=== PATIENT | male | born 1960 | race African-American/Black ===

== ENCOUNTER 2016-09-23 13:12 | Emergency (ER) | payer MEDICAID ==
[~2016-09-23] VITALS: Ht 177.8 cm; Wt 65.0 kg
[~2016-09-23 13:12] MED LIST: CEPH-569; KEPP500; [UNRECOGNIZED DRUG - OTHER]; clonazepam
[2016-09-23] MEDS ORDERED: ONDANSETRON HCL 4MG/2ML VIAL IV STA (14:05)
[2016-09-23] MEDS ORDERED: SODIUM CHLORIDE 0.9% 1,000 ML IV ONE (14:05)
[2016-09-23] MEDS ORDERED: MORPHINE SULFATE 4 MG/ML CPJ (NOT FOR IM USE) IV STA (14:05)
[2016-09-23] MEDS ORDERED: LEVETIRACETAM 500MG PREMIX 100 ML IV ONE (14:15)
[2016-09-23] MEDS ORDERED: CEFTRIAXONE 1 G PREMIX 50 ML IV ONE (14:15)
[2016-09-23] MEDS ORDERED: LIDOCAINE HCL 1%/EPI 1:200,000 30 ML VIAL MC ONE (14:15)
[2016-09-23] MEDS ORDERED: SULFAMETHOXAZOLE/TRIMETHOPRIM 800/160MG TABLET PO ONE (14:15)
[2016-09-23] MEDS ORDERED: LORAZEPAM 2MG/ML CPJ IV ONE (14:15)
[2016-09-23 14:30] VITALS: BP 100/81
[2016-09-23 14:47] LABS: BASOPHILS % 0.6 % (0.0-2.0); EOSINOPHILS % 1.9 % (0.0-5.0); HEMATOCRIT. 39.2 % (42.0-52.0); HEMOGLOBIN. 13.1 g/dL (14.0-18.0); LYMPHOCYTES % 29.5 % (20.0-50.0); MEAN CORPUSCULAR HEMOGLOBIN 30.6 pg (28.0-32.0); MEAN CORPUSCULAR HGB CONC 33.3 g/dL (31.0-37.0); MEAN PLATELET VOLUME 7.3 fl (7.4-10.4); MONOCYTES % 8.4 % (2.0-8.0); NEUTROPHILS % 59.6 % (40.0-76.0); PLATELET 256 x1000/uL (130-400); RED BLOOD CELL COUNT 4.27 mill/uL (4.7-6.1); WHITE BLOOD COUNT 13.4 x1000/uL (4.5-11.0)
[2016-09-23 14:53] LABS: CHLORIDE 101 mEq/L (98-107); INDEX HEMOLYSI 1 (1-3); INDEX ICTERIC 1 (1-4); INDEX LIPEMIC 1 (1-3); PARTIAL THROMBOPLASTIN TIME 33.9 sec (24.0-34.0); PROTHROMBIN TIME 10.6 sec
[2016-09-23 15:02] LABS: ALANINE AMINOTRANSFERASE 23 IU/L (13-61); ALBUMIN 3.2 g/dL (3.4-5.0); ANION GAP 15; CALCIUM 8.4 mg/dL (8.5-10.1); CARBON DIOXIDE 27 mEq/L (21-32); LIPASE 110 IU/L (73-393); UREA NITROGEN BLOOD 10 mg/dL (7-21); eGFR > 60 mL/min (>60)
== END 2016-09-24 12:11 | disposition left against medical advice (07) ==
LOC: ER 14:48
DX: L02.211 Cutaneous abscess of abdominal wall (principal); G40.909 Epilepsy, unspecified, not intractable, without status epilepticus; K62.5 Hemorrhage of anus and rectum; F17.210 Nicotine dependence, cigarettes, uncomplicated; Z88.8 Allergy status to other drugs, medicaments and biological substances; Z79.899 Other long term (current) drug therapy
CPT/HCPCS: 10060; 36415; 71010; 80053; 83690; 85025; 85610; 85730; 93005; 96365; 96375; 99285; J0696; J1953; J2060; J2270; J2405; J7030; X7700; Z7610

== ENCOUNTER 2016-10-01 11:23 | Emergency (ER) | payer MEDICAID ==
[~2016-10-01] VITALS: Ht 177.8 cm; Wt 75.0 kg
[2016-10-01 11:30] VITALS: BP 101/61
[2016-10-01] MEDS ORDERED: LIDOCAINE HCL 1% 20ML VIAL (Pyxis) INJ MC ONE (12:30)
[2016-10-01] MEDS ORDERED: BACITRACIN ZINC OINT UDPKT TOP ONE (12:30)
== END 2016-10-01 14:51 | disposition home or self-care (01) ==
LOC: ER 14:35
DX: Z48.00 Encounter for change or removal of nonsurgical wound dressing (principal)
CPT/HCPCS: 99283; J3490

== ENCOUNTER 2016-10-19 19:16 | Emergency (ER) | payer MEDICAID ==
[~2016-10-19] VITALS: Ht 177.8 cm; Wt 75.0 kg
[2016-10-19] MEDS ORDERED: SODIUM CHLORIDE 0.9% 1,000 ML IV ONE (19:51)
[2016-10-19 20:14] LABS: HEMATOCRIT. 37.7 % (42.0-52.0); HEMOGLOBIN. 12.8 g/dL (14.0-18.0); MEAN CORPUSCULAR HEMOGLOBIN 31.1 pg (28.0-32.0); MEAN CORPUSCULAR VOLUME 91.6 fL (80.0-94.0); MEAN PLATELET VOLUME 7.3 fl (7.4-10.4); PLATELET 220 x1000/uL (130-400); RED BLOOD CELL COUNT 4.12 mill/uL (4.7-6.1); WHITE BLOOD COUNT 10.9 x1000/uL (4.5-11.0)
[2016-10-19 20:16] LABS: DIFFERENTIAL COMMENT 1
[2016-10-19 20:18] LABS: CHLORIDE 104 mEq/L (98-107); INDEX HEMOLYSI 1 (1-3); INDEX ICTERIC 1 (1-4); INDEX LIPEMIC 1 (1-3)
[2016-10-19 20:22] LABS: ALBUMIN 3.4 g/dL (3.4-5.0); ANION GAP 13; CALCIUM 8.4 mg/dL (8.5-10.1); CARBON DIOXIDE 25 mEq/L (21-32); ETHANOL BLOOD 142 mg/dL; UREA NITROGEN BLOOD 5 mg/dL (7-21)
[2016-10-19 20:26] LABS: ALANINE AMINOTRANSFERASE 24 IU/L (13-61); eGFR > 60 mL/min (>60)
[2016-10-19 20:35] LABS: PLATELET ESTIMATE NORMAL
[2016-10-19 20:46] LABS: *AMPHETAMINES SCREEN URINE NEGATIVE (NEGATIVE); *BARBITURATES SCREEN URINE NEGATIVE (NEGATIVE); *BENZODIAZEPINES SCREEN URINE NEGATIVE (NEGATIVE); *COCAINE SCREEN URINE PRESUMTIVE POSITIVE (NEGATIVE); CANNABINOID URINE SCREEN NEGATIVE (NEGATIVE); ECSTASY MDMA SCREEN URINE NEGATIVE (NEGATIVE); METHADONE URINE SCREEN NEGATIVE (NEGATIVE); OPIATES URINE SCREEN PRESUMTIVE POSITIVE (NEGATIVE); PHENCYCLIDINE URINE SCREEN PRESUMTIVE POSITIVE (NEGATIVE)
[2016-10-19] MEDS ORDERED: LIDOCAINE HCL 1%/EPI 1:200,000 30 ML VIAL MC ONE (22:15)
[2016-10-19] MEDS ORDERED: BACITRACIN ZINC OINT UDPKT TOP ONE (22:15)
[2016-10-19 23:00] VITALS: BP 138/75
== END 2016-10-19 23:50 | disposition home or self-care (01) ==
LOC: ER 19:17
DX: F10.129 Alcohol abuse with intoxication, unspecified (principal); L02.31 Cutaneous abscess of buttock; F14.10 Cocaine abuse, uncomplicated; F19.10 Other psychoactive substance abuse, uncomplicated; R56.9 Unspecified convulsions; Z88.8 Allergy status to other drugs, medicaments and biological substances; Y90.8 Blood alcohol level of 240 mg/100 ml or more
CPT/HCPCS: 10060; 36415; 80053; 80305; 85025; 96360; 96361; 99285; G0482; J7030; X7700; Z7610

== ENCOUNTER 2016-10-26 23:48 | Emergency (ER) | payer MEDICAID | END 2016-10-27 01:21 | disposition left against medical advice (07) | LOC: ER 23:48 | DX: Z53.21 Procedure and treatment not carried out due to patient leaving prior to being seen by health care provider (principal) ==

== ENCOUNTER 2016-10-28 06:16 | Emergency (ER) | payer MEDICAID ==
[~2016-10-28] VITALS: Ht 162.6 cm; Wt 41.0 kg
[2016-10-28] MEDS ORDERED: LEVETIRACETAM 500MG TABLET PO ONE (07:45)
[2016-10-28 08:20] LABS: EOSINOPHILS % 1.9 % (0.0-5.0); HEMATOCRIT. 41.1 % (42.0-52.0); HEMOGLOBIN. 13.9 g/dL (14.0-18.0); LYMPHOCYTES % 36.4 % (20.0-50.0); MEAN CORPUSCULAR HEMOGLOBIN 31.2 pg (28.0-32.0); MEAN CORPUSCULAR VOLUME 92.3 fL (80.0-94.0); MEAN PLATELET VOLUME 7.2 fl (7.4-10.4); MONOCYTES % 7.3 % (2.0-8.0); NEUTROPHILS % 53.4 % (40.0-76.0); PLATELET 265 x1000/uL (130-400); RED BLOOD CELL COUNT 4.46 mill/uL (4.7-6.1); RED CELL DISTRIBUTION WIDTH 13.9 % (11.6-14.6)
[2016-10-28 08:21] LABS: PROTHROMBIN TIME 10.5 sec
[2016-10-28 08:25] VITALS: BP 134/74
[2016-10-28 08:25] LABS: CARBON DIOXIDE 29 mEq/L (21-32); CHLORIDE 109 mEq/L (98-107); ETHANOL BLOOD < 10 mg/dL
== END 2016-10-28 09:06 | disposition home or self-care (01) ==
LOC: ER 08:58
DX: L02.416 Cutaneous abscess of left lower limb (principal); F17.210 Nicotine dependence, cigarettes, uncomplicated; F11.10 Opioid abuse, uncomplicated; F19.10 Other psychoactive substance abuse, uncomplicated; Z48.01 Encounter for change or removal of surgical wound dressing; Z88.8 Allergy status to other drugs, medicaments and biological substances; Z79.899 Other long term (current) drug therapy
CPT/HCPCS: 36415; 80048; 85025; 85610; 99284; G0482; Z7610

== ENCOUNTER 2016-11-09 18:06 | Emergency (ER) | payer MEDICAID ==
[~2016-11-09] VITALS: Ht 167.6 cm; Wt 70.0 kg
[2016-11-09] MEDS ORDERED: KETOROLAC 60MG/2ML VIAL IM ONE (19:30)
[2016-11-09 19:59] VITALS: BP 106/67
== END 2016-11-09 20:03 | disposition home or self-care (01) ==
LOC: ER 18:10
DX: M79.632 Pain in left forearm (principal); F17.200 Nicotine dependence, unspecified, uncomplicated; Z88.8 Allergy status to other drugs, medicaments and biological substances; W20.8XXA Other cause of strike by thrown, projected or falling object, initial encounter; Y93.89 Activity, other specified; Y92.811 Bus as the place of occurrence of the external cause; Y99.8 Other external cause status
CPT/HCPCS: 73090; 96372; 99284; J1885

== ENCOUNTER 2016-11-18 20:01 | Emergency (ER) | payer MEDICAID ==
[~2016-11-18] VITALS: Ht 177.8 cm; Wt 63.6 kg
[2016-11-18 21:04] VITALS: BP 135/95
== END 2016-11-19 01:26 | disposition left against medical advice (07) ==
LOC: ER 11-19 01:23
DX: M54.9 Dorsalgia, unspecified (principal); M79.602 Pain in left arm; M79.643 Pain in unspecified hand; Z53.21 Procedure and treatment not carried out due to patient leaving prior to being seen by health care provider

== ENCOUNTER 2016-12-19 14:54 | Emergency (ER) | payer MEDICAID ==
[~2016-12-19] VITALS: Ht 177.8 cm; Wt 75.0 kg
[2016-12-19 16:25] LABS: BASOPHILS % 0.5 % (0.0-2.0); EOSINOPHILS % 0.9 % (0.0-5.0); LYMPHOCYTES % 38.5 % (20.0-50.0); MEAN CORPUSCULAR HEMOGLOBIN 31.7 pg (28.0-32.0); MEAN CORPUSCULAR VOLUME 92.7 fL (80.0-94.0); MEAN PLATELET VOLUME 7.2 fl (7.4-10.4); MONOCYTES % 4.7 % (2.0-8.0); NEUTROPHILS % 55.4 % (40.0-76.0); PLATELET 211 x1000/uL (130-400); RED BLOOD CELL COUNT 4.43 mill/uL (4.7-6.1); RED CELL DISTRIBUTION WIDTH 13.8 % (11.6-14.6)
[2016-12-19 16:32] LABS: CARBON DIOXIDE 24 mEq/L (21-32); CHLORIDE 111 mEq/L (98-107); ETHANOL BLOOD 184 mg/dL
[2016-12-19] MEDS ORDERED: CLONAZEPAM 1MG TABLET PO NR (18:30)
[2016-12-20 02:54] VITALS: BP 127/71
== END 2016-12-20 03:17 | disposition home or self-care (01) ==
LOC: ER 15:17
DX: F10.229 Alcohol dependence with intoxication, unspecified (principal); F12.10 Cannabis abuse, uncomplicated; Z88.8 Allergy status to other drugs, medicaments and biological substances; Y90.6 Blood alcohol level of 120-199 mg/100 ml
CPT/HCPCS: 36415; 70450; 80053; 85025; 99285; G0482; Z7610

== ENCOUNTER 2017-01-08 21:09 | Observation (INO) | payer MEDICAID ==
[~2017-01-08] VITALS: Ht 177.8 cm; Wt 59.0 kg
[~2017-01-08 21:09] MED LIST changes: -clonazepam; +clonazepam PO
[2017-01-08] MEDS ORDERED: SODIUM CHLORIDE 0.9% 1,000 ML IV ONE (23:55)
[2017-01-08] MEDS ORDERED: MORPHINE SULFATE 4 MG/ML CPJ (NOT FOR IM USE) IV STA (23:55)
[2017-01-08] MEDS ORDERED: ONDANSETRON HCL 4MG/2ML VIAL IV STA (23:55)
[2017-01-09 01:03] LABS: BASOPHILS % 0.5 % (0.0-2.0); EOSINOPHILS % 1.2 % (0.0-5.0); HEMATOCRIT. 37.9 % (42.0-52.0); HEMOGLOBIN. 12.8 g/dL (14.0-18.0); LYMPHOCYTES % 34.7 % (20.0-50.0); MEAN CORPUSCULAR HEMOGLOBIN 32.3 pg (28.0-32.0); MEAN CORPUSCULAR VOLUME 95.4 fL (80.0-94.0); MEAN PLATELET VOLUME 7.3 fl (7.4-10.4); MONOCYTES % 6.6 % (2.0-8.0); PLATELET 161 x1000/uL (130-400); RED BLOOD CELL COUNT 3.97 mill/uL (4.7-6.1); RED CELL DISTRIBUTION WIDTH 13.9 % (11.6-14.6)
[2017-01-09 01:10] LABS: PROTHROMBIN TIME 10.2 sec
[2017-01-09 01:20] LABS: CARBON DIOXIDE 29 mEq/L (21-32); CHLORIDE 103 mEq/L (98-107); ETHANOL BLOOD 17 mg/dL; TROPONIN I < 0.02 ng/mL (0.00-0.04)
[2017-01-09 01:27] LABS: CARBAMAZEPINE < 0.5 ug/mL (4-12); PHENOBARBITAL < 2.1 ug/mL (15.0-40.0); PHENYTOIN < 0.4 ug/mL (10-20); VALPROIC ACID < 3.0 ug/mL (50-100)
[2017-01-09] MEDS ORDERED: LEVETIRACETAM 500MG PREMIX 100 ML IV ONE (02:30)
[2017-01-09] MEDS ORDERED: LORAZEPAM 2MG/ML CPJ IV ONE (02:30)
[2017-01-09 03:49] LABS: BASOPHILS % 1.2 % (0.0-2.0); EOSINOPHILS % 1.8 % (0.0-5.0); HEMATOCRIT. 36.4 % (42.0-52.0); HEMOGLOBIN. 12.4 g/dL (14.0-18.0); LYMPHOCYTES % 39.9 % (20.0-50.0); MEAN CORPUSCULAR HEMOGLOBIN 32.2 pg (28.0-32.0); MEAN CORPUSCULAR VOLUME 94.8 fL (80.0-94.0); MEAN PLATELET VOLUME 7.4 fl (7.4-10.4); MONOCYTES % 6.5 % (2.0-8.0); NEUTROPHILS % 50.6 % (40.0-76.0); PLATELET 166 x1000/uL (130-400); RED BLOOD CELL COUNT 3.84 mill/uL (4.7-6.1)
[2017-01-09] MEDS: HYDROMORPHONE HCL/PF 2MG/ML CPJ IV PRN ×4 (09:41→21:06)
[2017-01-09 11:00] VITALS: BP 112/75
[2017-01-09] MEDS ORDERED: ZOLPIDEM TARTRATE 5MG TABLET PO PRN (11:30)
[2017-01-09] MEDS ORDERED: CLONIDINE 0.2MG TABLET PO PRN (11:30)
[2017-01-09] MEDS ORDERED: HYDROCODONE/ACETAMINOPHEN 10/325MG TABLET PO PRN (11:30)
[2017-01-09] MEDS ORDERED: SODIUM CHLORIDE 0.45% 1,000 ML IV SCH (11:45)
[2017-01-09 11:48] VITALS: BP 112/75
[2017-01-09] MEDS: PANTOPRAZOLE SODIUM 40 MG/VIAL IV SCH (13:04)
[2017-01-09] MEDS: CLONAZEPAM 1MG TABLET PO SCH ×2 (13:04→21:29)
[2017-01-09 13:48] LABS: CREATINE KINASE 190 IU/L (39-308); CREATINE KINASE MB FRACTION 1.8 ng/mL (0.5-3.6); TROPONIN I < 0.02 ng/mL (0.00-0.04)
[2017-01-09 16:15] VITALS: BP 140/60
[2017-01-09 20:00] VITALS: BP 101/59
[2017-01-09 22:06] LABS: CREATINE KINASE 156 IU/L (39-308); TROPONIN I < 0.02 ng/mL (0.00-0.04)
[2017-01-10] VITALS: BP 100/57
[2017-01-10] MEDS: HYDROMORPHONE HCL/PF 2MG/ML CPJ IV PRN ×3 (01:34→09:23)
[2017-01-10 04:00] VITALS: BP 98/57
[2017-01-10] MEDS: CLONAZEPAM 1MG TABLET PO SCH (05:16)
[2017-01-10] MEDS ORDERED: LIDOCAINE HCL/EPINEPHRINE 1%-EPI 1:100,000 50 ML VIAL INFIL ONE (06:19)
[2017-01-10] MEDS ORDERED: GELATIN SPONGE,ABSORBABLE SZ 100 ONE (06:19)
[2017-01-10] MEDS ORDERED: BACITRACIN 50,000 UNITS/VIAL ONE (06:19)
[2017-01-10] MEDS ORDERED: NORMAL SALINE 0.9% 10 ML SYR ONE (06:19)
[2017-01-10] MEDS ORDERED: THROMBIN (BOVINE) 5000 UNITS/VIAL TOP ONE (06:19)
[2017-01-10 07:23] VITALS: BP 95/58
[2017-01-10 07:25] LABS: HEMOGLOBIN 13.6 g/dL (14.0-18.0); MEAN CORPUSCULAR HEMOGLOBIN 31.8 pg (28.0-32.0); MEAN CORPUSCULAR VOLUME 93.8 fL (80.0-94.0); PLATELET 188 x1000/uL (130-400); RED BLOOD CELL COUNT 4.26 mill/uL (4.7-6.1)
[2017-01-10 08:09] LABS: CARBON DIOXIDE 30 mEq/L (21-32); CHLORIDE 103 mEq/L (98-107)
[2017-01-10 08:47] VITALS: BP 95/58
[2017-01-10 09:23] VITALS: BP 102/62
[2017-01-10] MEDS: PANTOPRAZOLE SODIUM 40 MG/VIAL IV SCH (09:37)
== END 2017-01-10 10:10 | disposition home or self-care (01) ==
LOC: ER 21:09 → 6WST 01-09 03:23 → INTOOBSV 01-09 03:23 → EDBEDREQ 01-09 03:26 → EDBEDREQTM 01-09 03:26 → ENRESERV 01-09 09:14
PROVIDERS: ADMIT Internal Medicine; ATTEND Internal Medicine
DX: K51.911 Ulcerative colitis, unspecified with rectal bleeding (principal); R56.9 Unspecified convulsions; F17.200 Nicotine dependence, unspecified, uncomplicated; Z79.899 Other long term (current) drug therapy
CPT/HCPCS: 36415; 70450; 71010; 74176; 80048; 80053; 80156; 80165; 80184; 80185; 82550; 82553; 83605; 83690; 84443; 84484; 85025; 85027; 85610; 87040; 87086; 93005; 96361; 96365; 96375; 96376; 99285; A4216; C9113; G0378; G0482; J1170; J1953; J2060; J2270; J2405; J3490; J7030; 96374

== ENCOUNTER 2017-01-27 09:55 | Emergency (ER) | payer MEDICAID ==
[~2017-01-27] VITALS: Ht 177.8 cm; Wt 76.0 kg
[2017-01-27 10:06] VITALS: BP 117/77
== END 2017-01-27 15:30 | disposition left against medical advice (07) ==
LOC: ER 11:18
DX: L02.818 Cutaneous abscess of other sites (principal); Z53.21 Procedure and treatment not carried out due to patient leaving prior to being seen by health care provider
CPT/HCPCS: X7700; Z7610

== ENCOUNTER 2017-01-30 12:58 | Emergency (ER) | payer MEDICAID ==
[~2017-01-30] VITALS: Ht 177.8 cm; Wt 61.9 kg
[2017-01-30 15:10] VITALS: BP 110/73
[2017-01-30] MEDS ORDERED: TETANUS, DIPHTHERIA, PERTUSSIS VAC/PF 0.5ML (>7YR OLD) IM ONE (15:30)
[2017-01-30] MEDS ORDERED: CEFTRIAXONE SODIUM 1 G/VIAL IM ONE (15:30)
[2017-01-30] MEDS ORDERED: LIDOCAINE HCL 1%/EPI 1:200,000 30 ML VIAL MC ONE (15:30)
== END 2017-01-30 16:46 | disposition home or self-care (01) ==
LOC: ER 15:53
PROC: 0H9EXZZ Drainage of Left Lower Arm Skin, External Approach (ICD-10-PCS; principal; 2017-01-30)
DX: L02.414 Cutaneous abscess of left upper limb (principal); L03.114 Cellulitis of left upper limb; F17.210 Nicotine dependence, cigarettes, uncomplicated; R56.9 Unspecified convulsions; F15.10 Other stimulant abuse, uncomplicated; Z88.8 Allergy status to other drugs, medicaments and biological substances
CPT/HCPCS: 10060; 90471; 90715; 96372; 99284; J0696; Z7610

== ENCOUNTER 2017-10-08 18:01 | Emergency (ER) | payer MEDICAID ==
[~2017-10-08] VITALS: Ht 182.9 cm; Wt 72.0 kg
[2017-10-08] MEDS ORDERED: SODIUM CHLORIDE 0.9% 1,000 ML IV ONE (18:32)
[2017-10-08] MEDS ORDERED: LORAZEPAM 2MG/ML CPJ IM ONE (18:45)
[2017-10-08] MEDS ORDERED: TETANUS, DIPHTHERIA, PERTUSSIS VAC/PF 0.5ML (>7YR OLD) IM ONE (18:45)
[2017-10-08] MEDS ORDERED: BACITRACIN ZINC OINT UDPKT TOP ONE (18:45)
[2017-10-08] MEDS ORDERED: LIDOCAINE HCL 1% 20ML VIAL (Pyxis) INJ MC ONE (18:45)
[2017-10-08 19:03] LABS: BASOPHILS % 0.7 % (0.0-2.0); EOSINOPHILS % 0.8 % (0.0-5.0); HEMOGLOBIN. 12.3 g/dL (14.0-18.0); MEAN CORPUSCULAR HEMOGLOBIN 32.1 pg (28.0-32.0); MEAN CORPUSCULAR VOLUME 93.4 fL (80.0-94.0); MEAN PLATELET VOLUME 7.7 fl (7.4-10.4); MONOCYTES % 5.5 % (2.0-8.0); PLATELET 265 x1000/uL (130-400); PROTHROMBIN TIME 10.6 sec (9.4-11.6); RED BLOOD CELL COUNT 3.85 mill/uL (4.7-6.1); RED CELL DISTRIBUTION WIDTH 13.8 % (11.6-14.6)
[2017-10-08 19:04] LABS: CHLORIDE 111 mEq/L (98-107)
[2017-10-08 19:09] LABS: AMMONIA 38 uMol/L (<32); ETHANOL BLOOD 123 mg/dL
[2017-10-08 19:13] LABS: CREATINE KINASE 323 IU/L (39-308)
[2017-10-08] MEDS ORDERED: LEVETIRACETAM 500MG PREMIX 100 ML IV ONE (19:15)
[2017-10-08 19:16] LABS: KETONES URINE NEGATIVE (NEGATIVE); LEUKOCYTE ESTERASE URINE NEGATIVE (NEGATIVE); NITRITE URINE NEGATIVE (NEGATIVE); OCCULT BLOOD URINE NEGATIVE (NEGATIVE); PROTEIN URINE NEGATIVE (NEGATIVE); SPECIFIC GRAVITY URINE 1.006 (1.005-1.030); UROBILINOGEN URINE 0.2 E.U./dL (0.2-1.0)
[2017-10-08 19:22] LABS: CLARITY URINE CLEAR (CLEAR); COLOR URINE YELLOW (YELLOW)
[2017-10-08 19:29] LABS: *AMPHETAMINES SCREEN URINE NEGATIVE (NEGATIVE); *BARBITURATES SCREEN URINE NEGATIVE (NEGATIVE); *BENZODIAZEPINES SCREEN URINE PRESUMTIVE POSITIVE (NEGATIVE); *COCAINE SCREEN URINE PRESUMTIVE POSITIVE (NEGATIVE); CANNABINOID URINE SCREEN NEGATIVE (NEGATIVE); METHADONE URINE SCREEN NEGATIVE (NEGATIVE); OPIATES URINE SCREEN PRESUMTIVE POSITIVE (NEGATIVE); PHENCYCLIDINE URINE SCREEN PRESUMTIVE POSITIVE (NEGATIVE)
[2017-10-08 19:37] LABS: CARBAMAZEPINE < 0.5 ug/mL (4-12); PHENOBARBITAL < 2.1 ug/mL (15.0-40.0)
[2017-10-08] MEDS ORDERED: LIDOCAINE HCL/PF 1% 10 MG/ML 30ML VIAL IJ SCH (20:00)
[2017-10-08] MEDS ORDERED: LIDOCAINE HCL/PF 1% 10 MG/ML 30ML VIAL ONE (20:14)
[2017-10-08] MEDS ORDERED: CLINDAMYCIN 600 MG in DEXTROSE 5% WATER 50 ML IV ONE (20:45)
[2017-10-08] MEDS ORDERED: CLINDAMYCIN 600MG PREMIX 50 ML IV SCH (21:00)
[2017-10-09 01:45] VITALS: BP 122/72
== END 2017-10-09 02:16 | disposition home or self-care (01) ==
LOC: ER 19:37
DX: T40.5X1A Poisoning by cocaine, accidental (unintentional), initial encounter (principal); T40.1X1A Poisoning by heroin, accidental (unintentional), initial encounter; T40.991A Poisoning by other psychodysleptics [hallucinogens], accidental (unintentional), initial encounter; T51.0X1A Toxic effect of ethanol, accidental (unintentional), initial encounter; G92 Toxic encephalopathy; E86.0 Dehydration; L02.414 Cutaneous abscess of left upper limb; G40.909 Epilepsy, unspecified, not intractable, without status epilepticus; F11.10 Opioid abuse, uncomplicated; Y92.488 Other paved roadways as the place of occurrence of the external cause
CPT/HCPCS: 10060; 36415; 70450; 71045; 80053; 80156; 80165; 80184; 80185; 80305; 80307; 80329; 81003; 82140; 82550; 84443; 84484; 85025; 85610; 90471; 90715; 93005; 96361; 96365; 96366; 96372; 99285; G0482; J2060; J3490; J7030; Z7610; J1953; J7060

== ENCOUNTER 2017-12-21 01:24 | Emergency (ER) | payer MEDICAID ==
[~2017-12-21] VITALS: Ht 177.8 cm; Wt 63.0 kg
[2017-12-21] MEDS ORDERED: HYDROCODONE/ACETAMINOPHEN 5/325MG TABLET PO ONE (05:15)
[2017-12-21] MEDS ORDERED: ONDANSETRON 4MG ODT PO ONE (05:15)
[2017-12-21 06:47] VITALS: BP 102/65
== END 2017-12-21 06:58 | disposition home or self-care (01) ==
LOC: ER 01:24
DX: R56.9 Unspecified convulsions (principal)
CPT/HCPCS: 99283; Q0162

== ENCOUNTER 2017-12-29 04:01 | Emergency (ER) | payer MEDICAID ==
[~2017-12-29] VITALS: Ht 177.8 cm; Wt 62.6 kg
[2017-12-29 05:20] VITALS: BP 125/79
== END 2017-12-29 09:55 | disposition left against medical advice (07) ==
LOC: ER 09:55
DX: Z53.21 Procedure and treatment not carried out due to patient leaving prior to being seen by health care provider (principal); R53.1 Weakness; R56.9 Unspecified convulsions; F10.129 Alcohol abuse with intoxication, unspecified; Z88.8 Allergy status to other drugs, medicaments and biological substances

== ENCOUNTER 2018-01-02 19:12 | Emergency (ER) | payer MEDICAID ==
[~2018-01-02] VITALS: Ht 172.7 cm; Wt 70.0 kg
[2018-01-02] MEDS ORDERED: MORPHINE SULFATE 4 MG/ML CPJ (NOT FOR IM USE) IV STA (20:41)
[2018-01-02] MEDS ORDERED: ONDANSETRON HCL 4MG/2ML VIAL IV STA (20:41)
[2018-01-02] MEDS ORDERED: SODIUM CHLORIDE 0.9% 1,000 ML IV ONE (20:41)
[2018-01-02] MEDS ORDERED: LORAZEPAM 2MG/ML CPJ IV ONE (20:45)
[2018-01-02 21:30] LABS: CLARITY URINE CLEAR (CLEAR); COLOR URINE YELLOW (YELLOW); KETONES URINE NEGATIVE (NEGATIVE); LEUKOCYTE ESTERASE URINE NEGATIVE (NEGATIVE); NITRITE URINE NEGATIVE (NEGATIVE); OCCULT BLOOD URINE NEGATIVE (NEGATIVE); PH URINE 5.5 (4.5-8.0); PROTEIN URINE NEGATIVE (NEGATIVE); SPECIFIC GRAVITY URINE 1.009 (1.005-1.030)
[2018-01-02 21:41] LABS: *AMPHETAMINES SCREEN URINE NEGATIVE (NEGATIVE); *BARBITURATES SCREEN URINE NEGATIVE (NEGATIVE); *BENZODIAZEPINES SCREEN URINE NEGATIVE (NEGATIVE); *COCAINE SCREEN URINE NEGATIVE (NEGATIVE)
[2018-01-02 21:42] LABS: CANNABINOID URINE SCREEN NEGATIVE (NEGATIVE); METHADONE URINE SCREEN NEGATIVE (NEGATIVE); OPIATES URINE SCREEN PRESUMTIVE POSITIVE (NEGATIVE); PHENCYCLIDINE URINE SCREEN PRESUMTIVE POSITIVE (NEGATIVE)
[2018-01-02 22:31] LABS: BASOPHILS % 0.8 % (0.0-2.0); EOSINOPHILS % 0.4 % (0.0-5.0); HEMATOCRIT. 34.7 % (42.0-52.0); HEMOGLOBIN. 11.8 g/dL (14.0-18.0); LYMPHOCYTES % 27.2 % (20.0-50.0); MEAN CORPUSCULAR HEMOGLOBIN 31.9 pg (28.0-32.0); MEAN PLATELET VOLUME 7.8 fl (7.4-10.4); MONOCYTES % 8.2 % (2.0-8.0); NEUTROPHILS % 63.4 % (40.0-76.0); PLATELET 240 x1000/uL (130-400); RED CELL DISTRIBUTION WIDTH 13.6 % (11.6-14.6)
[2018-01-02 22:33] LABS: PROTHROMBIN TIME 10.1 sec (9.1-11.1)
[2018-01-02 22:35] LABS: CHLORIDE 106 mEq/L (98-107)
[2018-01-02 22:39] LABS: ETHANOL BLOOD 179 mg/dL
[2018-01-02 22:54] LABS: CARBAMAZEPINE < 0.5 ug/mL (4-12); PHENOBARBITAL < 2.1 ug/mL (15.0-40.0); VALPROIC ACID < 3.0 ug/mL (50-100)
[2018-01-02] MEDS ORDERED: KCL 20MEQ/100ML PREMIX 100 ML IV ONE (23:00)
[2018-01-02] MEDS ORDERED: LEVETIRACETAM 500MG PREMIX 100 ML IV ONE (23:30)
[2018-01-03] MEDS ORDERED: LEVOFLOXACIN 750MG PREMIX 150 ML IV ONE (01:15)
[2018-01-03] MEDS ORDERED: LEVETIRACETAM 500MG PREMIX 100 ML IV SCH (02:19)
[2018-01-03 05:08] VITALS: BP 118/72
== END 2018-01-03 05:10 | disposition home or self-care (01) ==
LOC: ER 20:41 → CANBEDREQ 01-03 05:14
DX: T51.0X1A Toxic effect of ethanol, accidental (unintentional), initial encounter (principal); T40.991A Poisoning by other psychodysleptics [hallucinogens], accidental (unintentional), initial encounter; R10.84 Generalized abdominal pain; R91.8 Other nonspecific abnormal finding of lung field; G40.909 Epilepsy, unspecified, not intractable, without status epilepticus; E11.9 Type 2 diabetes mellitus without complications; Z88.8 Allergy status to other drugs, medicaments and biological substances; Z91.14 Patient's other noncompliance with medication regimen; Z87.11 Personal history of peptic ulcer disease; Y92.488 Other paved roadways as the place of occurrence of the external cause
CPT/HCPCS: 36415; 71045; 74176; 80053; 80156; 80165; 80184; 80185; 80305; 81003; 83605; 83690; 83880; 84484; 85025; 85610; 86850; 86900; 86901; 87040; 87086; 93005; 96365; 96366; 96367; 96375; 99285; G0482; J1953; J1956; J2060; J2270; J2405; J3480; J7030; J7040; Z7610

== ENCOUNTER 2018-01-04 12:29 | Emergency (ER) | payer MEDICAID ==
[~2018-01-04] VITALS: Ht 182.9 cm; Wt 85.0 kg
[2018-01-04 13:57] VITALS: BP 99/67
== END 2018-01-04 13:59 | disposition home or self-care (01) ==
LOC: ER 12:29
DX: R56.9 Unspecified convulsions (principal); Z76.0 Encounter for issue of repeat prescription; F17.210 Nicotine dependence, cigarettes, uncomplicated; Z88.8 Allergy status to other drugs, medicaments and biological substances
CPT/HCPCS: 99283; 99406

== ENCOUNTER 2018-01-05 13:57 | Emergency (ER) | payer MEDICAID ==
[~2018-01-05] VITALS: Ht 175.3 cm; Wt 70.0 kg
[2018-01-05] MEDS ORDERED: LORAZEPAM 2MG/ML CPJ IV STA (14:16)
[2018-01-05] MEDS ORDERED: SODIUM CHLORIDE 0.9% 1,000 ML IV ONE (14:16)
[2018-01-05] MEDS ORDERED: ONDANSETRON HCL 4MG/2ML VIAL IV STA (14:16)
[2018-01-05 14:20] VITALS: BP 107/75
[2018-01-05] MEDS ORDERED: FOLIC ACID 1 MG, THIAMINE HCL 100 MG, MVI, ADULT NO.1 10 ML in DEXTROSE 5% WATER 1,000 ML IV ONE ×4 (14:30)
[2018-01-05] MEDS ORDERED: LEVETIRACETAM 500MG PREMIX 100 ML IV ONE (14:30)
[2018-01-05] MEDS ORDERED: LORAZEPAM 2MG/ML CPJ IV ONE (14:45)
[2018-01-05 15:23] LABS: CHLORIDE 109 mEq/L (98-107)
[2018-01-05 15:27] LABS: ETHANOL BLOOD 227 mg/dL
[2018-01-05 15:33] LABS: CREATINE KINASE 364 IU/L (39-308)
[2018-01-05 15:50] LABS: CARBAMAZEPINE < 0.5 ug/mL (4-12); HEPATITIS B SURFACE ANTIGEN NEGATIVE; PHENOBARBITAL < 2.1 ug/mL (15.0-40.0); VALPROIC ACID < 3.0 ug/mL (50-100)
[2018-01-05 15:55] LABS: PROTHROMBIN TIME 9.7 sec (9.1-11.1)
[2018-01-05 16:19] LABS: HEPATITIS B CORE AB IGM NEGATIVE
[2018-01-05 16:20] LABS: HEPATITIS A AB IGM NEGATIVE (NEGATIVE)
== END 2018-01-05 15:02 | disposition left against medical advice (07) ==
LOC: ER 13:59
DX: T51.0X1A Toxic effect of ethanol, accidental (unintentional), initial encounter (principal); R53.1 Weakness; F10.10 Alcohol abuse, uncomplicated; Y90.7 Blood alcohol level of 200-239 mg/100 ml; Y92.89 Other specified places as the place of occurrence of the external cause
CPT/HCPCS: 36415; 80053; 80156; 80165; 80184; 80185; 82550; 83735; 83880; 84484; 85610; 86703; 93005; 99285; G0482; J2060; J3411; J3490; J7030; J7070; 86705; 86709; 86803; 87340; J1953

== ENCOUNTER 2018-01-12 19:59 | Inpatient (IN) | payer MEDICAID ==
[~2018-01-12] VITALS: Ht 177.8 cm; Wt 68.0 kg
[2018-01-12] MEDS ORDERED: CLONAZEPAM 1MG TABLET PO ONE (21:00)
[2018-01-12] MEDS ORDERED: CLINDAMYCIN 600 MG in DEXTROSE 5% WATER 50 ML IV ONE (21:00)
[2018-01-12 21:28] LABS: BASOPHILS % 0.4 % (0.0-2.0); EOSINOPHILS % 2.6 % (0.0-5.0); HEMATOCRIT. 26.4 % (42.0-52.0); HEMOGLOBIN. 9.2 g/dL (14.0-18.0); MEAN CORPUSCULAR HEMOGLOBIN 33.4 pg (28.0-32.0); MEAN CORPUSCULAR VOLUME 95.6 fL (80.0-94.0); MEAN PLATELET VOLUME 7.1 fl (7.4-10.4); MONOCYTES % 12.9 % (2.0-8.0); NEUTROPHILS % 59.1 % (40.0-76.0); PLATELET 250 x1000/uL (130-400); RED BLOOD CELL COUNT 2.76 mill/uL (4.7-6.1); RED CELL DISTRIBUTION WIDTH 13.9 % (11.6-14.6)
[2018-01-12 21:34] LABS: CHLORIDE 107 mEq/L (98-107)
[2018-01-12] MEDS ORDERED: LIDOCAINE HCL/PF 1% 10 MG/ML 5ML VIAL IJ ONE (21:45)
[2018-01-13] MEDS ORDERED: POTASSIUM CHLORIDE 20MEQ TABLET SR PO ONE
[2018-01-13 02:50] VITALS: BP 90/51
[2018-01-13 04:00] VITALS: BP 98/54
[2018-01-13] MEDS ORDERED: ACETAMINOPHEN 650MG/20.3ML UDC PO PRN (06:45)
[2018-01-13] MEDS ORDERED: SODIUM CHLORIDE 0.9% 1,000 ML IV SCH (06:45)
[2018-01-13] MEDS ORDERED: MORPHINE SULFATE 4 MG/ML CPJ (NOT FOR IM USE) IV PRN (06:45)
[2018-01-13] MEDS ORDERED: MESA800T PO (07:36)
[2018-01-13 08:00] VITALS: BP 112/68
[2018-01-13] MEDS ORDERED: LEVETIRACETAM 500MG/5ML CUP PO SCH (09:00)
[2018-01-13] MEDS ORDERED: CLONAZEPAM 1MG TABLET PO SCH ×3 (09:00→13:00)
[2018-01-13] MEDS ORDERED: CLINDAMYCIN 900 MG in DEXTROSE 5% WATER 50 ML IV SCH (09:00)
[2018-01-13 09:53] VITALS: BP 112/68
[2018-01-13 10:23] LABS: BASOPHILS % 0.4 % (0.0-2.0); HEMOGLOBIN. 10.3 g/dL (14.0-18.0); LYMPHOCYTES % 26.1 % (20.0-50.0); MEAN CORPUSCULAR HEMOGLOBIN 32.6 pg (28.0-32.0); MEAN CORPUSCULAR VOLUME 94.9 fL (80.0-94.0); MEAN PLATELET VOLUME 6.8 fl (7.4-10.4); MONOCYTES % 9.6 % (2.0-8.0); NEUTROPHILS % 61.9 % (40.0-76.0); PLATELET 287 x1000/uL (130-400); RED BLOOD CELL COUNT 3.16 mill/uL (4.7-6.1); RED CELL DISTRIBUTION WIDTH 13.9 % (11.6-14.6)
[2018-01-13 10:30] LABS: CHLORIDE 111 mEq/L (98-107)
== END 2018-01-13 13:05 | disposition left against medical advice (07) | DRG 383 ==
LOC: ER 20:40 → 8WST 21:47 → EDBEDREQ 21:59 → EDBEDREQTM 21:59 → ENRESERV 22:42
PROVIDERS: ADMIT Internal Medicine; ATTEND Internal Medicine
DX: L03.113 Cellulitis of right upper limb (principal); E43 Unspecified severe protein-calorie malnutrition; K51.90 Ulcerative colitis, unspecified, without complications; J98.11 Atelectasis; E11.9 Type 2 diabetes mellitus without complications; D64.9 Anemia, unspecified; E87.6 Hypokalemia; S63.282A Dislocation of proximal interphalangeal joint of right middle finger, initial encounter; X58.XXXA Exposure to other specified factors, initial encounter; J45.909 Unspecified asthma, uncomplicated; G40.909 Epilepsy, unspecified, not intractable, without status epilepticus; F17.200 Nicotine dependence, unspecified, uncomplicated; Z88.8 Allergy status to other drugs, medicaments and biological substances; Z68.21 Body mass index [BMI] 21.0-21.9, adult; Y93.89 Activity, other specified; Y92.89 Other specified places as the place of occurrence of the external cause; Y99.8 Other external cause status
CPT/HCPCS: 26770; 36415; 71045; 73130; 80048; 80053; 85025; 93005; 96365; 96366; 99285; J2270; J3490; J7030; J7060

== ENCOUNTER 2018-01-14 23:13 | Emergency (ER) | payer MEDICAID ==
[~2018-01-14] VITALS: Ht 180.3 cm; Wt 69.0 kg
[~2018-01-14 23:13] MED LIST changes: +ABILIFY; +ASACOL; -KEPP500; +KLONOPIN; +MESA800T PO; +PROZAC; -[UNRECOGNIZED DRUG - OTHER]
[2018-01-14] MEDS ORDERED: LORAZEPAM 2MG/ML CPJ IV ONE (23:45)
[2018-01-14] MEDS ORDERED: FOLIC ACID 1 MG, THIAMINE HCL 100 MG, MVI, ADULT NO.1 10 ML in DEXTROSE 5% WATER 1,000 ML IV ONE ×4 (23:45)
[2018-01-15 05:25] VITALS: BP 120/76
[2018-01-15] MEDS ORDERED: LATA2.5D2 EACHEYE (23:54)
[2018-01-15] MEDS ORDERED: ALBU18HF2 IH (23:54)
[2018-01-15] MEDS ORDERED: METF500T6 MT (23:54)
[2018-01-15] MEDS ORDERED: TLXL5 MT (23:54)
[2018-01-15] MEDS ORDERED: MESA800T MT (23:54)
[2018-01-15] MEDS ORDERED: CLON2TAB21 MT (23:54)
[2018-01-15] MEDS ORDERED: LATA2.5D6 EACHEYE (23:54)
== END 2018-01-15 05:29 | disposition home or self-care (01) ==
LOC: ER 23:13
DX: G31.2 Degeneration of nervous system due to alcohol (principal); F10.129 Alcohol abuse with intoxication, unspecified; J45.909 Unspecified asthma, uncomplicated; I95.9 Hypotension, unspecified; E11.9 Type 2 diabetes mellitus without complications; Y90.7 Blood alcohol level of 200-239 mg/100 ml; Z79.899 Other long term (current) drug therapy; Z88.9 Allergy status to unspecified drugs, medicaments and biological substances; Z88.2 Allergy status to sulfonamides
CPT/HCPCS: 36415; 96365; 96366; 96375; 99285; G0482; J2060; J3411; J3490; J7070

== ENCOUNTER 2018-01-16 17:33 | Emergency (ER) | payer MEDICAID ==
[~2018-01-16] VITALS: Ht 170.2 cm; Wt 80.0 kg
[~2018-01-16 17:33] MED LIST changes: +ALBU18HF2 IH; +CLON2TAB21 MT; +LATA2.5D2 EACHEYE; +LATA2.5D6 EACHEYE; +MESA800T MT; +METF500T6 MT; +TLXL5 MT
[2018-01-16] MEDS ORDERED: SODIUM CHLORIDE 0.9% 1,000 ML IV ONE (18:54)
[2018-01-16 19:40] LABS: BASOPHILS % 0.7 % (0.0-2.0); HEMATOCRIT. 33.6 % (42.0-52.0); HEMOGLOBIN. 11.2 g/dL (14.0-18.0); LYMPHOCYTES % 43.2 % (20.0-50.0); MEAN CORPUSCULAR HEMOGLOBIN 31.7 pg (28.0-32.0); MEAN CORPUSCULAR VOLUME 95.2 fL (80.0-94.0); MEAN PLATELET VOLUME 6.5 fl (7.4-10.4); MONOCYTES % 4.6 % (2.0-8.0); NEUTROPHILS % 50.5 % (40.0-76.0); PLATELET 482 x1000/uL (130-400); RED BLOOD CELL COUNT 3.53 mill/uL (4.7-6.1); RED CELL DISTRIBUTION WIDTH 14.3 % (11.6-14.6)
[2018-01-16 19:45] LABS: CHLORIDE 118 mEq/L (98-107)
[2018-01-16 19:50] LABS: PROTHROMBIN TIME 10.2 sec (9.1-11.1)
[2018-01-16 20:01] LABS: ETHANOL BLOOD 319 mg/dL
[2018-01-16 21:40] LABS: CLARITY URINE CLEAR (CLEAR); COLOR URINE YELLOW (YELLOW); KETONES URINE NEGATIVE (NEGATIVE); LEUKOCYTE ESTERASE URINE NEGATIVE (NEGATIVE); NITRITE URINE NEGATIVE (NEGATIVE); OCCULT BLOOD URINE NEGATIVE (NEGATIVE); PH URINE 5.5 (4.5-8.0); PROTEIN URINE NEGATIVE (NEGATIVE); SPECIFIC GRAVITY URINE 1.003 (1.005-1.030); UROBILINOGEN URINE 0.2 E.U./dL (0.2-1.0)
[2018-01-16 21:55] LABS: *AMPHETAMINES SCREEN URINE NEGATIVE (NEGATIVE); *BARBITURATES SCREEN URINE NEGATIVE (NEGATIVE); *BENZODIAZEPINES SCREEN URINE PRESUMTIVE POSITIVE (NEGATIVE); *COCAINE SCREEN URINE NEGATIVE (NEGATIVE); METHADONE URINE SCREEN NEGATIVE (NEGATIVE)
[2018-01-16 21:56] LABS: CANNABINOID URINE SCREEN NEGATIVE (NEGATIVE); OPIATES URINE SCREEN NEGATIVE (NEGATIVE); PHENCYCLIDINE URINE SCREEN PRESUMTIVE POSITIVE (NEGATIVE)
[2018-01-16 22:35] VITALS: BP 124/77
[2018-02-05] MEDS ORDERED: PROM-177 MT (08:03)
== END 2018-01-17 02:21 | disposition home or self-care (01) ==
LOC: ER 19:53
DX: S00.81XA Abrasion of other part of head, initial encounter (principal); F10.229 Alcohol dependence with intoxication, unspecified; F16.10 Hallucinogen abuse, uncomplicated; F13.10 Sedative, hypnotic or anxiolytic abuse, uncomplicated; I10 Essential (primary) hypertension; E11.9 Type 2 diabetes mellitus without complications; G40.909 Epilepsy, unspecified, not intractable, without status epilepticus; J45.909 Unspecified asthma, uncomplicated; F17.200 Nicotine dependence, unspecified, uncomplicated; E87.6 Hypokalemia; E87.0 Hyperosmolality and hypernatremia; E88.09 Other disorders of plasma-protein metabolism, not elsewhere classified; D64.9 Anemia, unspecified; Z88.8 Allergy status to other drugs, medicaments and biological substances; W19.XXXA Unspecified fall, initial encounter; Y93.89 Activity, other specified; Y92.488 Other paved roadways as the place of occurrence of the external cause; Y99.8 Other external cause status; Y90.8 Blood alcohol level of 240 mg/100 ml or more
CPT/HCPCS: 36415; 70450; 71045; 72125; 80053; 80305; 81003; 85025; 85610; 99285; 99406; G0482; J7030

== ENCOUNTER 2018-01-27 00:33 | Emergency (ER) | payer MEDICAID ==
[~2018-01-27] VITALS: Ht 177.8 cm; Wt 64.4 kg
[2018-01-27] MEDS ORDERED: CLONAZEPAM 1MG TABLET PO ONE (02:45)
[2018-01-27 03:14] LABS: BASOPHILS % 0.2 % (0.0-2.0); EOSINOPHILS % 0.2 % (0.0-5.0); HEMATOCRIT. 34.4 % (42.0-52.0); HEMOGLOBIN. 11.4 g/dL (14.0-18.0); LYMPHOCYTES % 11.1 % (20.0-50.0); MEAN CORPUSCULAR HEMOGLOBIN 32.5 pg (28.0-32.0); MEAN CORPUSCULAR VOLUME 98.5 fL (80.0-94.0); MEAN PLATELET VOLUME 7.8 fl (7.4-10.4); MONOCYTES % 6.7 % (2.0-8.0); NEUTROPHILS % 81.8 % (40.0-76.0); PLATELET 261 x1000/uL (130-400); RED BLOOD CELL COUNT 3.49 mill/uL (4.7-6.1); RED CELL DISTRIBUTION WIDTH 15.9 % (11.6-14.6)
[2018-01-27 03:18] LABS: CHLORIDE 105 mEq/L (98-107)
[2018-01-27 03:22] LABS: ETHANOL BLOOD 82 mg/dL
[2018-01-27] MEDS ORDERED: SODIUM CHLORIDE 0.9% 1,000 ML IV ONE (04:12)
[2018-01-27] MEDS ORDERED: BACITRACIN ZINC OINT UDPKT TOP ONE (04:15)
[2018-01-27 05:40] LABS: CLARITY URINE CLOUDY (CLEAR); COLOR URINE YELLOW (YELLOW); KETONES URINE TRACE (NEGATIVE); LEUKOCYTE ESTERASE URINE NEGATIVE (NEGATIVE); NITRITE URINE NEGATIVE (NEGATIVE); OCCULT BLOOD URINE 1+ (NEGATIVE); PROTEIN URINE 1+ (NEGATIVE); SPECIFIC GRAVITY URINE 1.021 (1.005-1.030); UROBILINOGEN URINE 0.2 E.U./dL (0.2-1.0)
[2018-01-27 05:49] LABS: *AMPHETAMINES SCREEN URINE PRESUMTIVE POSITIVE (NEGATIVE); *BENZODIAZEPINES SCREEN URINE PRESUMTIVE POSITIVE (NEGATIVE)
[2018-01-27 05:50] LABS: *COCAINE SCREEN URINE NEGATIVE (NEGATIVE); CANNABINOID URINE SCREEN NEGATIVE (NEGATIVE); METHADONE URINE SCREEN NEGATIVE (NEGATIVE); OPIATES URINE SCREEN PRESUMTIVE POSITIVE (NEGATIVE); PHENCYCLIDINE URINE SCREEN PRESUMTIVE POSITIVE (NEGATIVE)
[2018-01-27 05:51] LABS: *BARBITURATES SCREEN URINE NEGATIVE (NEGATIVE)
[2018-01-27 06:47] VITALS: BP 105/67
== END 2018-01-27 06:50 | disposition home or self-care (01) ==
LOC: ER 00:33
DX: R56.9 Unspecified convulsions (principal); E86.0 Dehydration; F14.10 Cocaine abuse, uncomplicated; F12.10 Cannabis abuse, uncomplicated; E11.9 Type 2 diabetes mellitus without complications; F17.200 Nicotine dependence, unspecified, uncomplicated; Z88.8 Allergy status to other drugs, medicaments and biological substances
CPT/HCPCS: 36415; 80053; 80305; 81003; 85025; 96360; 96361; 99285; G0482; J7030; Z7610

== ENCOUNTER 2018-01-29 09:48 | Emergency (ER) | payer MEDICAID ==
[~2018-01-29] VITALS: Ht 172.7 cm; Wt 75.0 kg
[2018-01-29 09:56] VITALS: BP 114/73
== END 2018-01-29 11:30 | disposition left against medical advice (07) ==
LOC: ER 11:03
DX: F11.10 Opioid abuse, uncomplicated (principal); Z53.21 Procedure and treatment not carried out due to patient leaving prior to being seen by health care provider

== ENCOUNTER 2018-02-27 12:51 | Emergency (ER) | payer MEDICAID ==
[~2018-02-27] VITALS: Ht 177.8 cm; Wt 63.7 kg
[~2018-02-27 12:51] MED LIST changes: -ABILIFY; -ASACOL; -KLONOPIN; +PROM-177 MT; -PROZAC; -clonazepam PO
[2018-02-27 13:05] VITALS: BP 106/67
== END 2018-02-27 15:23 | disposition left against medical advice (07) ==
LOC: ER 13:40
DX: Z53.21 Procedure and treatment not carried out due to patient leaving prior to being seen by health care provider (principal)

== ENCOUNTER 2018-03-17 18:29 | Emergency (ER) | payer MEDICAID ==
[~2018-03-17] VITALS: Ht 177.8 cm; Wt 68.3 kg
[~2018-03-17 18:29] MED LIST changes: +LATA2.5D4 EACHEYE; -LATA2.5D6 EACHEYE; +METF-414 MT; -METF500T6 MT
[2018-03-17] MEDS ORDERED: SODIUM CHLORIDE 0.9% 1,000 ML IV ONE (20:36)
[2018-03-17] MEDS ORDERED: KETOROLAC 30MG/ML VIAL IV STA (20:36)
[2018-03-17] MEDS ORDERED: LORAZEPAM 2MG/ML CPJ IV ONE (20:45)
[2018-03-18 01:01] LABS: BASOPHILS % 1.4 % (0.0-2.0); EOSINOPHILS % 2.4 % (0.0-5.0); HEMATOCRIT. 34.7 % (42.0-52.0); HEMOGLOBIN. 11.5 g/dL (14.0-18.0); LYMPHOCYTES % 39.2 % (20.0-50.0); MEAN CORPUSCULAR VOLUME 93.8 fL (80.0-94.0); MEAN PLATELET VOLUME 8.1 fl (7.4-10.4); MONOCYTES % 7.1 % (2.0-8.0); NEUTROPHILS % 49.9 % (40.0-76.0); PLATELET 210 x1000/uL (130-400); RED CELL DISTRIBUTION WIDTH 14.3 % (11.6-14.6)
[2018-03-18 01:12] LABS: CHLORIDE 104 mEq/L (98-107)
[2018-03-18 01:33] LABS: ETHANOL BLOOD < 10 mg/dL
[2018-03-18 01:40] LABS: CARBAMAZEPINE < 0.5 ug/mL (4-12); PHENOBARBITAL < 2.1 ug/mL (15.0-40.0); VALPROIC ACID < 3.0 ug/mL (50-100)
[2018-03-18 01:41] VITALS: BP 100/56
== END 2018-03-18 02:23 | disposition home or self-care (01) ==
LOC: ER 18:29
DX: G40.909 Epilepsy, unspecified, not intractable, without status epilepticus (principal); S02.2XXA Fracture of nasal bones, initial encounter for closed fracture; M24.445 Recurrent dislocation, left finger; S00.212A Abrasion of left eyelid and periocular area, initial encounter; S00.81XA Abrasion of other part of head, initial encounter; X58.XXXA Exposure to other specified factors, initial encounter; Y93.9 Activity, unspecified; Y92.9 Unspecified place or not applicable; W18.30XA Fall on same level, unspecified, initial encounter; Y93.89 Activity, other specified; R03.0 Elevated blood-pressure reading, without diagnosis of hypertension; Y92.89 Other specified places as the place of occurrence of the external cause; R45.1 Restlessness and agitation; F17.210 Nicotine dependence, cigarettes, uncomplicated; F12.90 Cannabis use, unspecified, uncomplicated; Z88.8 Allergy status to other drugs, medicaments and biological substances; Z88.5 Allergy status to narcotic agent
CPT/HCPCS: 36415; 70450; 70486; 71045; 73130; 80053; 80156; 80165; 80184; 80185; 83690; 85025; 93005; 96374; 96375; 99285; G0482; J1885; J2060; J7030

== ENCOUNTER 2018-03-26 08:47 | Emergency (ER) | payer MEDICAID ==
[~2018-03-26] VITALS: Ht 177.8 cm; Wt 64.0 kg
[2018-03-26] MEDS ORDERED: MORPHINE SULFATE 4 MG/ML CPJ (NOT FOR IM USE) IV ONE ×2 (10:30→12:15)
[2018-03-26] MEDS ORDERED: LIDOCAINE HCL 1% 20ML VIAL (Pyxis) INJ INFIL ONE (10:30)
[2018-03-26] MEDS ORDERED: SODIUM CHLORIDE 0.9% 1,000 ML IV ONE (10:30)
[2018-03-26] MEDS ORDERED: GENTAMICIN SULF 40MG/ML 2ML VIAL ONE (11:00)
[2018-03-26 12:31] LABS: HEMATOCRIT 37.1 % (42.0-52.0); HEMOGLOBIN 12.3 g/dL (14.0-18.0); MEAN CORPUSCULAR HEMOGLOBIN 30.9 pg (28.0-32.0); MEAN CORPUSCULAR VOLUME 93.2 fL (80.0-94.0); PLATELET 233 x1000/uL (130-400); RED BLOOD CELL COUNT 3.98 mill/uL (4.7-6.1); RED CELL DISTRIBUTION WIDTH 14.6 % (11.6-14.6)
[2018-03-26 12:45] VITALS: BP 90/59
[2018-03-26 12:49] LABS: PARTIAL THROMBOPLASTIN TIME 30.7 sec (23.4-31.0); PROTHROMBIN TIME 9.7 sec (9.1-11.1)
== END 2018-03-26 12:49 | disposition home or self-care (01) ==
LOC: ER 08:47
DX: L02.416 Cutaneous abscess of left lower limb (principal); F17.210 Nicotine dependence, cigarettes, uncomplicated; F12.10 Cannabis abuse, uncomplicated; R56.9 Unspecified convulsions; Z88.6 Allergy status to analgesic agent; Z88.1 Allergy status to other antibiotic agents; Z88.8 Allergy status to other drugs, medicaments and biological substances; Z79.899 Other long term (current) drug therapy
CPT/HCPCS: 10060; 36415; 76881; 80048; 85027; 85610; 85730; 96361; 96374; 96376; 99285; 99406; J2270; J3490; J7030; J1580

== ENCOUNTER 2018-06-13 13:41 | Emergency (ER) | payer MEDICAID, OTHER ==
[~2018-06-13] VITALS: Ht 175.3 cm; Wt 87.0 kg
[2018-06-13 13:48] VITALS: BP 116/82
[2018-06-13] MEDS ORDERED: SODIUM CHLORIDE 0.9% 1,000 ML IV ONE (14:55)
[2018-06-13 15:51] LABS: HEMOGLOBIN. 11.8 g/dL (14.0-18.0); MEAN CORPUSCULAR HEMOGLOBIN 30.4 pg (28.0-32.0); MEAN CORPUSCULAR VOLUME 90.5 fL (80.0-94.0); MEAN PLATELET VOLUME 7.9 fl (7.4-10.4); PLATELET 322 x1000/uL (130-400); RED BLOOD CELL COUNT 3.87 mill/uL (4.7-6.1); RED CELL DISTRIBUTION WIDTH 15.1 % (11.6-14.6)
[2018-06-13 15:58] LABS: CHLORIDE 108 mEq/L (98-107)
[2018-06-13 16:02] LABS: ETHANOL BLOOD 30 mg/dL
[2018-06-13 16:13] LABS: PLATELET ESTIMATE NORMAL
[2018-06-13] MEDS ORDERED: POTASSIUM CHLORIDE 20MEQ TABLET SR PO NR (17:00)
[2018-06-13 17:08] LABS: CLARITY URINE CLEAR (CLEAR); COLOR URINE YELLOW (YELLOW); KETONES URINE NEGATIVE (NEGATIVE); LEUKOCYTE ESTERASE URINE 3+ (NEGATIVE); NITRITE URINE NEGATIVE (NEGATIVE); OCCULT BLOOD URINE TRACE (NEGATIVE); PROTEIN URINE TRACE (NEGATIVE); SPECIFIC GRAVITY URINE 1.013 (1.005-1.030); UROBILINOGEN URINE 0.2 E.U./dL (0.2-1.0)
[2018-06-13 17:25] LABS: METHADONE URINE SCREEN NEGATIVE (NEGATIVE); OPIATES URINE SCREEN PRESUMTIVE POSITIVE (NEGATIVE)
[2018-06-13 17:26] LABS: *AMPHETAMINES SCREEN URINE PRESUMTIVE POSITIVE (NEGATIVE); *BARBITURATES SCREEN URINE NEGATIVE (NEGATIVE); *BENZODIAZEPINES SCREEN URINE PRESUMTIVE POSITIVE (NEGATIVE); *COCAINE SCREEN URINE NEGATIVE (NEGATIVE); CANNABINOID URINE SCREEN NEGATIVE (NEGATIVE); PHENCYCLIDINE URINE SCREEN PRESUMTIVE POSITIVE (NEGATIVE)
== END 2018-06-13 17:09 | disposition left against medical advice (07) ==
LOC: ER 13:59
DX: F16.10 Hallucinogen abuse, uncomplicated (principal); F15.10 Other stimulant abuse, uncomplicated; G40.909 Epilepsy, unspecified, not intractable, without status epilepticus; R45.1 Restlessness and agitation; D64.9 Anemia, unspecified; D72.829 Elevated white blood cell count, unspecified; E87.6 Hypokalemia; F10.10 Alcohol abuse, uncomplicated; Y90.1 Blood alcohol level of 20-39 mg/100 ml; Z88.8 Allergy status to other drugs, medicaments and biological substances
CPT/HCPCS: 36415; 80053; 80305; 80307; 80329; 81003; 84484; 85025; 93005; 99284; G0482; J7030

== ENCOUNTER 2018-06-13 17:56 | Inpatient (IN) | payer MEDICAID, OTHER ==
[~2018-06-13] VITALS: Ht 177.8 cm; Wt 80.0 kg
[2018-06-13] MEDS ORDERED: LORAZEPAM 2MG/ML CPJ IV ONE ×3 (18:15→21:30)
[2018-06-13] MEDS ORDERED: LORAZEPAM 2MG/ML CPJ ONE (18:25)
[2018-06-13] MEDS ORDERED: LORAZEPAM 2MG/ML CPJ IV STA (18:53)
[2018-06-13] MEDS ORDERED: SODIUM CHLORIDE 0.9% 1,000 ML IV ONE (18:53)
[2018-06-13] MEDS ORDERED: HALOPERIDOL LACTATE 5MG/ML VIAL IM ONE (20:15)
[2018-06-13] MEDS ORDERED: OLANZAPINE 10 MG/VIAL IM ONE (21:30)
[2018-06-13 22:10] LABS: HEMATOCRIT. 35.8 % (42.0-52.0); HEMOGLOBIN. 11.9 g/dL (14.0-18.0); MEAN CORPUSCULAR HEMOGLOBIN 30.5 pg (28.0-32.0); MEAN CORPUSCULAR VOLUME 91.8 fL (80.0-94.0); MEAN PLATELET VOLUME 7.6 fl (7.4-10.4); PLATELET 287 x1000/uL (130-400); RED CELL DISTRIBUTION WIDTH 14.8 % (11.6-14.6)
[2018-06-13 22:15] LABS: CHLORIDE 111 mEq/L (98-107)
[2018-06-13 22:20] LABS: ETHANOL BLOOD < 10 mg/dL
[2018-06-13 22:35] LABS: PLATELET ESTIMATE NORMAL
[2018-06-14] MEDS ORDERED: LORAZEPAM 2MG/ML CPJ IV SCH (06:00)
[2018-06-14] MEDS ORDERED: FOLIC ACID 1 MG, THIAMINE HCL 100 MG, MVI, ADULT NO.1 10 ML in DEXTROSE 5% WATER 1,000 ML IV ONE ×4 (06:15)
[2018-06-14] MEDS ORDERED: FOLIC ACID 1 MG, MVI, ADULT NO.1 10 ML in DEXTROSE 5% WATER 1,000 ML IV ONE ×3 (06:30)
[2018-06-14 08:22] LABS: *AMPHETAMINES SCREEN URINE NEGATIVE (NEGATIVE); CANNABINOID URINE SCREEN NEGATIVE (NEGATIVE); OPIATES URINE SCREEN PRESUMTIVE POSITIVE (NEGATIVE); PHENCYCLIDINE URINE SCREEN PRESUMTIVE POSITIVE (NEGATIVE)
[2018-06-14 08:23] LABS: *BARBITURATES SCREEN URINE NEGATIVE (NEGATIVE); *BENZODIAZEPINES SCREEN URINE PRESUMTIVE POSITIVE (NEGATIVE); *COCAINE SCREEN URINE NEGATIVE (NEGATIVE); METHADONE URINE SCREEN NEGATIVE (NEGATIVE)
[2018-06-14 09:18] VITALS: BP 120/77
[2018-06-14 14:35] LABS: CLARITY URINE CLEAR (CLEAR); COLOR URINE YELLOW (YELLOW); KETONES URINE TRACE (NEGATIVE); LEUKOCYTE ESTERASE URINE TRACE (NEGATIVE); NITRITE URINE NEGATIVE (NEGATIVE); OCCULT BLOOD URINE 3+ (NEGATIVE); PH URINE 5.5 (4.5-8.0); PROTEIN URINE 1+ (NEGATIVE); SPECIFIC GRAVITY URINE 1.014 (1.005-1.030); UROBILINOGEN URINE 0.2 E.U./dL (0.2-1.0)
== END 2018-06-14 10:51 | disposition left against medical advice (07) | DRG 720 ==
LOC: ER 17:56 → 7WST 06-14 06:10 → EDBEDREQ 06-14 06:14 → EDBEDREQTM 06-14 06:14 → ENRESERV 06-14 08:03 → ER 06-14 08:54 → 7WST 06-14 09:07
PROVIDERS: ADMIT Internal Medicine; ATTEND Internal Medicine
DX: A41.9 Sepsis, unspecified organism (principal); G93.41 Metabolic encephalopathy; E87.8 Other disorders of electrolyte and fluid balance, not elsewhere classified; Z78.1 Physical restraint status; G40.909 Epilepsy, unspecified, not intractable, without status epilepticus; D64.9 Anemia, unspecified; F16.90 Hallucinogen use, unspecified, uncomplicated; E87.6 Hypokalemia; Z88.9 Allergy status to unspecified drugs, medicaments and biological substances
CPT/HCPCS: 36415; 71045; 73060; 73090; 80305; 80307; 80329; 83605; 93005; 96360; 96372; 99285; G0482; J1630; J2060; J3411; J3490; J7030; J7070

== ENCOUNTER 2018-06-14 11:00 | Inpatient (IN) | payer MEDICAID, OTHER ==
[~2018-06-14] VITALS: Ht 177.8 cm; Wt 63.5 kg
[2018-06-14] MEDS ORDERED: LIDOCAINE 1%/EPI 1:100,000 10 ML VIAL IJ ONE (11:30)
[2018-06-14] MEDS ORDERED: LIDOCAINE HCL/EPINEPHRINE 1%-EPI 1:100,000 20 ML VIAL IJ SCH (12:00)
[2018-06-14 12:11] LABS: BASOPHILS % 0.4 % (0.0-2.0); EOSINOPHILS % 0.1 % (0.0-5.0); HEMATOCRIT. 35.7 % (42.0-52.0); LYMPHOCYTES % 7.7 % (20.0-50.0); MEAN CORPUSCULAR HEMOGLOBIN 30.2 pg (28.0-32.0); MEAN CORPUSCULAR VOLUME 89.9 fL (80.0-94.0); MEAN PLATELET VOLUME 8.7 fl (7.4-10.4); NEUTROPHILS % 84.8 % (40.0-76.0); PLATELET 330 x1000/uL (130-400); RED BLOOD CELL COUNT 3.97 mill/uL (4.7-6.1); RED CELL DISTRIBUTION WIDTH 15.3 % (11.6-14.6)
[2018-06-14 12:15] LABS: CHLORIDE 112 mEq/L (98-107)
[2018-06-14 12:21] LABS: ETHANOL BLOOD < 10 mg/dL
[2018-06-14 18:15] LABS: *BENZODIAZEPINES SCREEN URINE PRESUMTIVE POSITIVE (NEGATIVE); *COCAINE SCREEN URINE NEGATIVE (NEGATIVE); METHADONE URINE SCREEN NEGATIVE (NEGATIVE)
[2018-06-14 18:16] LABS: *AMPHETAMINES SCREEN URINE NEGATIVE (NEGATIVE); *BARBITURATES SCREEN URINE NEGATIVE (NEGATIVE); CANNABINOID URINE SCREEN NEGATIVE (NEGATIVE); OPIATES URINE SCREEN PRESUMTIVE POSITIVE (NEGATIVE); PHENCYCLIDINE URINE SCREEN PRESUMTIVE POSITIVE (NEGATIVE)
[2018-06-14 23:40] VITALS: BP 139/78
[2018-06-14 23:45] VITALS: BP 139/78
[2018-06-15] MEDS ORDERED: ACETAMINOPHEN 325MG TABLET PO PRN (00:30)
[2018-06-15] MEDS ORDERED: ONDANSETRON HCL 4MG/2ML INJ IV PRN (00:30)
[2018-06-15] MEDS ORDERED: DEXTROSE 50% WATER 50ML SYRINGE IV PRN (00:30)
[2018-06-15] MEDS: HYDROCODONE/ACETAMINOPHEN 10/325MG TABLET PO PRN (01:40)
[2018-06-15] MEDS: LORAZEPAM 2MG/ML CPJ IV PRN ×5 (02:57→23:14)
[2018-06-15 04:00] VITALS: BP 129/88
[2018-06-15] MEDS ORDERED: BLOOD SUGAR DIAGNOSTIC STRIP TEST SCH (07:10)
[2018-06-15] MEDS ORDERED: INSULIN LISPRO 100 UNITS/ML SUBCUT SCH (07:40)
[2018-06-15 08:00] VITALS: BP 122/92
[2018-06-15] MEDS: PANTOPRAZOLE SODIUM 40 MG/VIAL IV SCH (10:23)
[2018-06-15] MEDS: DIVALPROEX SODIUM 250MG DR TABLET PO SCH ×2 (10:23→21:24)
[2018-06-15] MEDS: HALOPERIDOL LACTATE 5MG/ML VIAL IM PRN ×2 (10:24→21:24)
[2018-06-15] MEDS: CEFTRIAXONE 1 G PREMIX 50 ML IV SCH (11:07)
[2018-06-15 11:34] LABS: BASOPHILS % 0.4 % (0.0-2.0); HEMATOCRIT. 38.1 % (42.0-52.0); HEMOGLOBIN. 12.7 g/dL (14.0-18.0); LYMPHOCYTES % 12.7 % (20.0-50.0); MEAN CORPUSCULAR HEMOGLOBIN 30.2 pg (28.0-32.0); MEAN CORPUSCULAR VOLUME 90.7 fL (80.0-94.0); MEAN PLATELET VOLUME 8.3 fl (7.4-10.4); MONOCYTES % 7.6 % (2.0-8.0); NEUTROPHILS % 79.3 % (40.0-76.0); PLATELET 335 x1000/uL (130-400); RED CELL DISTRIBUTION WIDTH 15.2 % (11.6-14.6)
[2018-06-15 11:56] LABS: CHLORIDE 112 mEq/L (98-107)
[2018-06-15 18:00] VITALS: BP 120/86
[2018-06-15 20:00] VITALS: BP 122/88
[2018-06-15] MEDS: LATANOPROST 0.005% OPHTH DROPS 2.5ML BOTHEYE SCH (21:24)
[2018-06-16] VITALS: BP 121/87
[2018-06-16] MEDS: HYDROCODONE/ACETAMINOPHEN 10/325MG TABLET PO PRN ×2 (03:00→14:58)
[2018-06-16 04:00] VITALS: BP 139/87
[2018-06-16 08:00] VITALS: BP 133/82
[2018-06-16] MEDS: PANTOPRAZOLE SODIUM 40 MG/VIAL IV SCH (08:49)
[2018-06-16] MEDS: CEFTRIAXONE 1 G PREMIX 50 ML IV SCH (08:49)
[2018-06-16] MEDS: DIVALPROEX SODIUM 250MG DR TABLET PO SCH ×3 (08:49→20:49)
[2018-06-16] MEDS: LORAZEPAM 2MG/ML CPJ IV PRN ×2 (08:49→16:37)
[2018-06-16 11:52] LABS: BASOPHILS % 1.5 % (0.0-2.0); EOSINOPHILS % 0.2 % (0.0-5.0); HEMATOCRIT. 37.3 % (42.0-52.0); HEMOGLOBIN. 12.2 g/dL (14.0-18.0); LYMPHOCYTES % 17.1 % (20.0-50.0); MEAN CORPUSCULAR HEMOGLOBIN 29.7 pg (28.0-32.0); MEAN CORPUSCULAR VOLUME 91.2 fL (80.0-94.0); MEAN PLATELET VOLUME 9.9 fl (7.4-10.4); MONOCYTES % 7.8 % (2.0-8.0); NEUTROPHILS % 73.4 % (40.0-76.0); PLATELET 355 x1000/uL (130-400); RED BLOOD CELL COUNT 4.09 mill/uL (4.7-6.1)
[2018-06-16 12:00] VITALS: BP 122/73
[2018-06-16 12:08] LABS: CHLORIDE 111 mEq/L (98-107)
[2018-06-16] MEDS: HALOPERIDOL LACTATE 5MG/ML VIAL IM PRN (12:57)
[2018-06-16 16:00] VITALS: BP 121/76
[2018-06-16 20:00] VITALS: BP 128/82
[2018-06-16] MEDS: LATANOPROST 0.005% OPHTH DROPS 2.5ML BOTHEYE SCH (20:49)
[2018-06-17] VITALS: BP 124/82
[2018-06-17 04:00] VITALS: BP 122/90
[2018-06-17 08:00] VITALS: BP 124/68
[2018-06-17] MEDS ORDERED: FAMOTIDINE 20MG TABLET PO SCH (09:00)
[2018-06-17] MEDS: CEFTRIAXONE 1 G PREMIX 50 ML IV SCH (09:55)
[2018-06-17] MEDS: DIVALPROEX SODIUM 250MG DR TABLET PO SCH (09:55)
[2018-06-17 10:57] VITALS: BP 124/68
[2018-06-17 12:11] VITALS: BP 124/68
[2018-06-17] MEDS: HYDROCODONE/ACETAMINOPHEN 10/325MG TABLET PO PRN (12:11)
== END 2018-06-17 14:51 | disposition home or self-care (01) | DRG 720 ==
LOC: ER 11:00 → EDBEDREQ 18:08 → 8WST 18:09 → ENRESERV 21:16
PROVIDERS: ADMIT Internal Medicine; ATTEND Internal Medicine
PROC: 0HQ1XZZ Repair Face Skin, External Approach (ICD-10-PCS; principal; 2018-06-14)
DX: A41.9 Sepsis, unspecified organism (principal); G93.41 Metabolic encephalopathy; E87.8 Other disorders of electrolyte and fluid balance, not elsewhere classified; E44.1 Mild protein-calorie malnutrition; E87.6 Hypokalemia; D64.9 Anemia, unspecified; F16.90 Hallucinogen use, unspecified, uncomplicated; S01.81XA Laceration without foreign body of other part of head, initial encounter; W18.39XA Other fall on same level, initial encounter; G40.909 Epilepsy, unspecified, not intractable, without status epilepticus; Z88.8 Allergy status to other drugs, medicaments and biological substances; Z79.899 Other long term (current) drug therapy; Y93.89 Activity, other specified; Y92.89 Other specified places as the place of occurrence of the external cause; Y99.8 Other external cause status; Z87.440 Personal history of urinary (tract) infections; Z68.20 Body mass index [BMI] 20.0-20.9, adult
CPT/HCPCS: 36415; 71045; 80048; 80305; 80307; 80329; 82962; 96365; 96375; 99291; C9113; G0482; J0696; J1630; J2060; J3490; J7050

== ENCOUNTER 2018-06-22 21:42 | Emergency (ER) | payer MEDICAID ==
[~2018-06-22] VITALS: Ht 177.8 cm; Wt 74.0 kg
[2018-06-22] MEDS ORDERED: SODIUM CHLORIDE 0.9% 1,000 ML IV ONE (22:17)
[2018-06-22] MEDS ORDERED: LORAZEPAM 2MG/ML CPJ IV STA (22:17)
[2018-06-22] MEDS ORDERED: LORAZEPAM 2MG/ML CPJ IM ONE (22:30)
[2018-06-23 00:18] LABS: *BENZODIAZEPINES SCREEN URINE NEGATIVE (NEGATIVE); *COCAINE SCREEN URINE NEGATIVE (NEGATIVE); CANNABINOID URINE SCREEN NEGATIVE (NEGATIVE); METHADONE URINE SCREEN NEGATIVE (NEGATIVE); PHENCYCLIDINE URINE SCREEN PRESUMTIVE POSITIVE (NEGATIVE)
[2018-06-23 00:19] LABS: *AMPHETAMINES SCREEN URINE NEGATIVE (NEGATIVE); *BARBITURATES SCREEN URINE NEGATIVE (NEGATIVE)
[2018-06-23 00:21] LABS: OPIATES URINE SCREEN PRESUMTIVE POSITIVE (NEGATIVE)
[2018-06-23 00:46] LABS: HEMATOCRIT. 32.6 % (42.0-52.0); HEMOGLOBIN. 10.8 g/dL (14.0-18.0); MEAN CORPUSCULAR VOLUME 90.9 fL (80.0-94.0); MEAN PLATELET VOLUME 7.8 fl (7.4-10.4); PLATELET 323 x1000/uL (130-400); RED BLOOD CELL COUNT 3.59 mill/uL (4.7-6.1); RED CELL DISTRIBUTION WIDTH 14.7 % (11.6-14.6)
[2018-06-23 00:52] LABS: CHLORIDE 106 mEq/L (98-107)
[2018-06-23 00:57] LABS: ETHANOL BLOOD 54 mg/dL
[2018-06-23 01:37] LABS: ATYPICAL LYMPHOCYTES 1; PLATELET ESTIMATE NORMAL
[2018-06-23 08:49] VITALS: BP 122/81
== END 2018-06-23 08:51 | disposition home or self-care (01) ==
LOC: ER 21:42
DX: F10.129 Alcohol abuse with intoxication, unspecified (principal); F16.10 Hallucinogen abuse, uncomplicated; R45.6 Violent behavior; E11.9 Type 2 diabetes mellitus without complications; Z88.1 Allergy status to other antibiotic agents; Z88.8 Allergy status to other drugs, medicaments and biological substances; Z79.84 Long term (current) use of oral hypoglycemic drugs; Z79.899 Other long term (current) drug therapy
CPT/HCPCS: 36415; 70450; 70486; 73030; 80053; 80305; 85025; 93005; 96361; 96372; 96374; 99284; G0482; J2060; J7030; Z7610

== ENCOUNTER 2018-07-26 15:45 | Emergency (ER) | payer MEDICAID ==
[~2018-07-26] VITALS: Ht 180.3 cm; Wt 80.0 kg
[2018-07-26 15:48] VITALS: BP 132/90
== END 2018-07-26 16:15 | disposition left against medical advice (07) ==
LOC: ER 15:45
DX: R41.82 Altered mental status, unspecified (principal); Z53.21 Procedure and treatment not carried out due to patient leaving prior to being seen by health care provider

== ENCOUNTER 2018-08-01 08:46 | Emergency (ER) | payer MEDICAID ==
[~2018-08-01] VITALS: Ht 177.8 cm; Wt 67.0 kg
[2018-08-01 09:11] VITALS: BP 119/92
[2018-08-01] MEDS ORDERED: LIDOCAINE HCL/PF 1% 10 MG/ML 5ML VIAL IJ ONE (10:15)
[2018-08-01] MEDS ORDERED: LIDOCAINE 1%/EPI 1:100,000 10 ML VIAL IJ ONE (10:15)
[2018-08-01] MEDS ORDERED: SODIUM CHLORIDE 0.9% 1000ML BAG (SEPSIS BOLUS) IV ONE (10:15)
[2018-08-01] MEDS ORDERED: BACITRACIN ZINC OINT UDPKT TOP ONE (10:15)
[2018-08-01] MEDS ORDERED: PIPERACILLIN/TAZ 3.375G PREMIX 50 ML IV ONE (10:15)
[2018-08-01] MEDS ORDERED: VANCOMYCIN 1 G PREMIX 200 ML IV ONE (10:15)
[2018-08-01 11:01] LABS: BASOPHILS % 0.4 % (0.0-2.0); EOSINOPHILS % 0.3 % (0.0-5.0); HEMATOCRIT. 32.6 % (42.0-52.0); HEMOGLOBIN. 10.4 g/dL (14.0-18.0); LYMPHOCYTES % 11.2 % (20.0-50.0); MEAN CORPUSCULAR HEMOGLOBIN 27.2 pg (28.0-32.0); MEAN CORPUSCULAR VOLUME 85.5 fL (80.0-94.0); MEAN PLATELET VOLUME 7.9 fl (7.4-10.4); MONOCYTES % 8.1 % (2.0-8.0); PLATELET 348 x1000/uL (130-400); RED BLOOD CELL COUNT 3.81 mill/uL (4.7-6.1); RED CELL DISTRIBUTION WIDTH 16.2 % (11.6-14.6)
[2018-08-01 11:06] LABS: CHLORIDE 107 mEq/L (98-107)
[2018-08-01 11:09] LABS: PARTIAL THROMBOPLASTIN TIME 33.8 sec (23.4-31.0)
[2018-08-01] MEDS ORDERED: LIDOCAINE HCL/EPINEPHRINE 1%-EPI 1:100,000 20 ML VIAL INFIL NR (11:15)
== END 2018-08-01 11:54 | disposition left against medical advice (07) ==
LOC: ER 08:46 → CANBEDREQ 17:46
DX: L02.31 Cutaneous abscess of buttock (principal); M25.512 Pain in left shoulder; F11.20 Opioid dependence, uncomplicated; G40.909 Epilepsy, unspecified, not intractable, without status epilepticus; F17.210 Nicotine dependence, cigarettes, uncomplicated; Z88.8 Allergy status to other drugs, medicaments and biological substances
CPT/HCPCS: 10060; 36415; 80053; 83605; 84145; 84484; 85025; 85610; 85730; 86850; 86900; 86901; 87040; 93005; 99283; J2543; J3370; J3490; J7030

== ENCOUNTER 2018-08-12 15:21 | Emergency (ER) | payer MEDICAID ==
[~2018-08-12] VITALS: Ht 177.8 cm; Wt 63.0 kg
[2018-08-12] MEDS ORDERED: LIDOCAINE 1%/EPI 1:100,000 10 ML VIAL IJ ONE (17:00)
[2018-08-12] MEDS ORDERED: HYDROCODONE/ACETAMINOPHEN 5/325MG TABLET PO ONE (17:00)
[2018-08-12] MEDS ORDERED: DOXYCYCLINE HYCLATE 100MG CAPSULE PO ONE (17:30)
[2018-08-12] MEDS ORDERED: CEPHALEXIN 250MG CAPSULE PO ONE (17:30)
[2018-08-12 18:15] VITALS: BP 104/69
== END 2018-08-12 18:18 | disposition home or self-care (01) ==
LOC: ER 15:21
DX: L02.31 Cutaneous abscess of buttock (principal); F11.10 Opioid abuse, uncomplicated
CPT/HCPCS: 10060; 87070; 87077; 87205; 99284; J3490; Z7610

== ENCOUNTER 2018-08-15 11:09 | Emergency (ER) | payer MEDICAID ==
[~2018-08-15] VITALS: Ht 170.2 cm; Wt 70.0 kg
[2018-08-15] MEDS ORDERED: SODIUM CHLORIDE 0.9% 1,000 ML IV ONE (11:42)
[2018-08-15 12:19] LABS: EOSINOPHILS % 1.5 % (0.0-5.0); HEMATOCRIT. 34.2 % (42.0-52.0); MEAN CORPUSCULAR HEMOGLOBIN 27.5 pg (28.0-32.0); MEAN CORPUSCULAR VOLUME 85.2 fL (80.0-94.0); MEAN PLATELET VOLUME 7.8 fl (7.4-10.4); MONOCYTES % 5.9 % (2.0-8.0); NEUTROPHILS % 54.6 % (40.0-76.0); PLATELET 306 x1000/uL (130-400); RED BLOOD CELL COUNT 4.01 mill/uL (4.7-6.1); RED CELL DISTRIBUTION WIDTH 17.5 % (11.6-14.6)
[2018-08-15 12:24] LABS: PROTHROMBIN TIME 10.2 sec (9.1-11.1)
[2018-08-15 12:27] LABS: CHLORIDE 108 mEq/L (98-107)
[2018-08-15 12:32] LABS: ETHANOL BLOOD < 10 mg/dL
[2018-08-15 13:20] LABS: CLARITY URINE CLOUDY (CLEAR); COLOR URINE DARK YELLOW (YELLOW); KETONES URINE NEGATIVE (NEGATIVE); LEUKOCYTE ESTERASE URINE NEGATIVE (NEGATIVE); NITRITE URINE NEGATIVE (NEGATIVE); OCCULT BLOOD URINE NEGATIVE (NEGATIVE); PROTEIN URINE NEGATIVE (NEGATIVE); SPECIFIC GRAVITY URINE 1.029 (1.005-1.030); UROBILINOGEN URINE 0.2 E.U./dL (0.2-1.0)
[2018-08-15 13:58] VITALS: BP 130/72
== END 2018-08-15 14:07 | disposition home or self-care (01) ==
LOC: ER 11:09
DX: R40.4 Transient alteration of awareness (principal); G40.909 Epilepsy, unspecified, not intractable, without status epilepticus; F11.10 Opioid abuse, uncomplicated; Z87.11 Personal history of peptic ulcer disease
CPT/HCPCS: 36415; 70450; 71045; 80053; 80320; 81003; 82962; 83605; 84145; 84484; 85025; 85610; 87040; 87086; 93005; 96360; 96361; 99284; J7030; G0480

== ENCOUNTER 2018-09-02 19:30 | Emergency (ER) | payer MEDICAID ==
[~2018-09-02] VITALS: Ht 172.7 cm; Wt 73.0 kg
[2018-09-02] MEDS ORDERED: SODIUM CHLORIDE 0.9% 1,000 ML IV ONE (20:04)
[2018-09-02] MEDS ORDERED: ONDANSETRON HCL 4MG/2ML INJ IV ONE (21:30)
[2018-09-02 21:32] LABS: BASOPHILS % 1.3 % (0.0-2.0); HEMATOCRIT. 36.1 % (42.0-52.0); HEMOGLOBIN. 11.8 g/dL (14.0-18.0); LYMPHOCYTES % 35.8 % (20.0-50.0); MEAN CORPUSCULAR HEMOGLOBIN 28.8 pg (28.0-32.0); MEAN PLATELET VOLUME 7.2 fl (7.4-10.4); MONOCYTES % 8.9 % (2.0-8.0); PLATELET 196 x1000/uL (130-400); RED BLOOD CELL COUNT 4.11 mill/uL (4.7-6.1); RED CELL DISTRIBUTION WIDTH 21.3 % (11.6-14.6)
[2018-09-02 21:37] LABS: CHLORIDE 112 mEq/L (98-107)
[2018-09-02 21:41] LABS: ETHANOL BLOOD 235 mg/dL
[2018-09-02 21:46] LABS: PHENOBARBITAL < 2.1 ug/mL (15.0-40.0); VALPROIC ACID < 3.0 ug/mL (50-100)
[2018-09-02 21:48] LABS: CARBAMAZEPINE < 0.5 ug/mL (4-12)
[2018-09-02] MEDS ORDERED: POTASSIUM CHLORIDE 20MEQ TABLET SR PO ONE (23:30)
[2018-09-03 02:06] VITALS: BP 104/57
== END 2018-09-03 07:01 | disposition home or self-care (01) ==
LOC: ER 19:30
DX: T40.1X1A Poisoning by heroin, accidental (unintentional), initial encounter (principal); L02.31 Cutaneous abscess of buttock; F10.129 Alcohol abuse with intoxication, unspecified; E87.6 Hypokalemia; G40.909 Epilepsy, unspecified, not intractable, without status epilepticus; Z88.8 Allergy status to other drugs, medicaments and biological substances; Z88.9 Allergy status to unspecified drugs, medicaments and biological substances; Z79.899 Other long term (current) drug therapy; Y92.89 Other specified places as the place of occurrence of the external cause; Y90.8 Blood alcohol level of 240 mg/100 ml or more
CPT/HCPCS: 36415; 70450; 80053; 80156; 80165; 80184; 80320; 85025; 93005; 96361; 96374; 99284; J2405; J7030; Z7610; G0480

== ENCOUNTER 2018-10-03 14:05 | Emergency (ER) | payer MEDICAID ==
[~2018-10-03] VITALS: Ht 170.2 cm; Wt 75.0 kg
[2018-10-03 14:25] VITALS: BP 142/92
== END 2018-10-03 15:05 | disposition left against medical advice (07) ==
LOC: ER 14:05
DX: Z53.21 Procedure and treatment not carried out due to patient leaving prior to being seen by health care provider (principal)

== ENCOUNTER 2018-10-08 22:03 | Emergency (ER) | payer MEDICAID ==
[~2018-10-08] VITALS: Ht 177.8 cm; Wt 71.0 kg
[2018-10-08 22:50] VITALS: BP 109/67
== END 2018-10-09 01:03 | disposition left against medical advice (07) ==
LOC: ER 22:03
DX: Z53.21 Procedure and treatment not carried out due to patient leaving prior to being seen by health care provider (principal)

== ENCOUNTER 2018-10-28 04:30 | Emergency (ER) | payer MEDICAID ==
[~2018-10-28] VITALS: Ht 177.8 cm; Wt 68.8 kg
[2018-10-28] MEDS ORDERED: CLONAZEPAM 1MG TABLET PO ONE (06:30)
[2018-10-28 06:42] LABS: CHLORIDE 106 mEq/L (98-107)
[2018-10-28 06:46] LABS: ETHANOL BLOOD < 10 mg/dL
[2018-10-28 06:59] LABS: BASOPHILS % 0.6 % (0.0-2.0); EOSINOPHILS % 1.1 % (0.0-5.0); HEMATOCRIT. 42.7 % (42.0-52.0); HEMOGLOBIN. 14.4 g/dL (14.0-18.0); LYMPHOCYTES % 24.5 % (20.0-50.0); MEAN CORPUSCULAR HEMOGLOBIN 31.2 pg (28.0-32.0); MEAN CORPUSCULAR VOLUME 92.3 fL (80.0-94.0); MEAN PLATELET VOLUME 8.1 fl (7.4-10.4); MONOCYTES % 9.1 % (2.0-8.0); NEUTROPHILS % 64.7 % (40.0-76.0); PLATELET 193 x1000/uL (130-400); RED BLOOD CELL COUNT 4.62 mill/uL (4.7-6.1); RED CELL DISTRIBUTION WIDTH 19.3 % (11.6-14.6)
[2018-10-28 08:18] VITALS: BP 122/76
== END 2018-10-28 08:19 | disposition home or self-care (01) ==
LOC: ER 04:30
DX: G40.909 Epilepsy, unspecified, not intractable, without status epilepticus (principal); Z76.0 Encounter for issue of repeat prescription; F17.210 Nicotine dependence, cigarettes, uncomplicated; Z88.8 Allergy status to other drugs, medicaments and biological substances; Z87.19 Personal history of other diseases of the digestive system
CPT/HCPCS: 36415; 73130; 80320; 99284; G0480

== ENCOUNTER 2018-10-30 07:41 | Emergency (ER) | payer MEDICAID ==
[~2018-10-30] VITALS: Ht 172.7 cm; Wt 65.0 kg
[2018-10-30] MEDS ORDERED: HALOPERIDOL LACTATE 5MG/ML VIAL IM ONE (07:45)
[2018-10-30 08:16] LABS: BASOPHILS % 0.9 % (0.0-2.0); EOSINOPHILS % 1.6 % (0.0-5.0); HEMATOCRIT. 44.2 % (42.0-52.0); HEMOGLOBIN. 14.8 g/dL (14.0-18.0); LYMPHOCYTES % 49.6 % (20.0-50.0); MEAN CORPUSCULAR VOLUME 92.6 fL (80.0-94.0); MEAN PLATELET VOLUME 7.6 fl (7.4-10.4); MONOCYTES % 6.1 % (2.0-8.0); NEUTROPHILS % 41.8 % (40.0-76.0); PLATELET 175 x1000/uL (130-400); RED BLOOD CELL COUNT 4.77 mill/uL (4.7-6.1); RED CELL DISTRIBUTION WIDTH 19.1 % (11.6-14.6)
[2018-10-30 08:22] LABS: CHLORIDE 114 mEq/L (98-107)
[2018-10-30 08:35] LABS: ETHANOL BLOOD 352 mg/dL
[2018-10-30 12:18] VITALS: BP 115/79
== END 2018-10-30 13:00 | disposition home or self-care (01) ==
LOC: ER 07:41
DX: F10.129 Alcohol abuse with intoxication, unspecified (principal); R41.82 Altered mental status, unspecified; R45.1 Restlessness and agitation; F11.10 Opioid abuse, uncomplicated; Z88.1 Allergy status to other antibiotic agents; Z88.8 Allergy status to other drugs, medicaments and biological substances; Z79.899 Other long term (current) drug therapy
CPT/HCPCS: 36415; 70450; 80053; 80320; 82962; 85025; 96372; 99284; J1630; G0480

== ENCOUNTER 2018-12-07 10:31 | Emergency (ER) | payer MEDICAID ==
[~2018-12-07] VITALS: Ht 177.8 cm; Wt 77.0 kg
[2018-12-07 10:32] VITALS: BP 112/85
[2018-12-07] MEDS ORDERED: ONDANSETRON HCL 4MG/2ML INJ IV ONE (10:45)
[2018-12-07] MEDS ORDERED: FOLIC ACID 1 MG, THIAMINE HCL 100 MG, MVI, ADULT NO.1 10 ML in DEXTROSE 5% WATER 1,000 ML IV ONE ×4 (10:45)
== END 2018-12-07 10:59 | disposition left against medical advice (07) ==
LOC: ER 10:31
DX: T40.1X1A Poisoning by heroin, accidental (unintentional), initial encounter (principal); Y92.89 Other specified places as the place of occurrence of the external cause; G92 Toxic encephalopathy; F19.10 Other psychoactive substance abuse, uncomplicated; R40.4 Transient alteration of awareness; I10 Essential (primary) hypertension; Z79.899 Other long term (current) drug therapy; Z88.6 Allergy status to analgesic agent; Z88.1 Allergy status to other antibiotic agents
CPT/HCPCS: 99283; J3411; J3490; J7070

== ENCOUNTER 2019-01-22 00:09 | Emergency (ER) | payer MEDICAID ==
[~2019-01-22] VITALS: Ht 180.3 cm; Wt 75.0 kg
[2019-01-22] MEDS ORDERED: SODIUM CHLORIDE 0.9% 1,000 ML IV ONE (02:58)
[2019-01-22 03:23] LABS: CHLORIDE 108 mEq/L (98-107)
[2019-01-22 03:30] LABS: BASOPHILS % 0.9 % (0.0-2.0); EOSINOPHILS % 0.4 % (0.0-5.0); HEMATOCRIT. 43.2 % (42.0-52.0); HEMOGLOBIN. 14.1 g/dL (14.0-18.0); LYMPHOCYTES % 41.4 % (20.0-50.0); MEAN CORPUSCULAR HEMOGLOBIN 30.1 pg (28.0-32.0); MEAN CORPUSCULAR VOLUME 91.9 fL (80.0-94.0); MEAN PLATELET VOLUME 8.1 fl (7.4-10.4); MONOCYTES % 3.6 % (2.0-8.0); NEUTROPHILS % 53.7 % (40.0-76.0); PLATELET 376 x1000/uL (130-400)
[2019-01-22 03:44] LABS: ETHANOL BLOOD 361 mg/dL
[2019-01-22] MEDS ORDERED: HALOPERIDOL LACTATE 5MG/ML VIAL IM ONE (04:30)
[2019-01-22] MEDS ORDERED: LORAZEPAM 2MG/ML CPJ IV ONE (04:30)
[2019-01-22 04:50] LABS: CLARITY URINE CLEAR (CLEAR); COLOR URINE YELLOW (YELLOW); KETONES URINE TRACE (NEGATIVE); LEUKOCYTE ESTERASE URINE NEGATIVE (NEGATIVE); NITRITE URINE NEGATIVE (NEGATIVE); OCCULT BLOOD URINE NEGATIVE (NEGATIVE); PH URINE 5.5 (4.5-8.0); PROTEIN URINE NEGATIVE (NEGATIVE); SPECIFIC GRAVITY URINE 1.013 (1.005-1.030); UROBILINOGEN URINE 0.2 E.U./dL (0.2-1.0)
[2019-01-22 04:59] LABS: *AMPHETAMINES SCREEN URINE NEGATIVE (NEGATIVE); *BARBITURATES SCREEN URINE NEGATIVE (NEGATIVE); *BENZODIAZEPINES SCREEN URINE PRESUMTIVE POSITIVE (NEGATIVE); *COCAINE SCREEN URINE NEGATIVE (NEGATIVE); METHADONE URINE SCREEN NEGATIVE (NEGATIVE)
[2019-01-22 05:00] LABS: CANNABINOID URINE SCREEN NEGATIVE (NEGATIVE); OPIATES URINE SCREEN PRESUMTIVE POSITIVE (NEGATIVE); PHENCYCLIDINE URINE SCREEN PRESUMTIVE POSITIVE (NEGATIVE)
[2019-01-22 06:30] VITALS: BP 113/62
== END 2019-01-22 06:48 | disposition home or self-care (01) ==
LOC: ER 00:09
DX: F10.129 Alcohol abuse with intoxication, unspecified (principal); Z79.899 Other long term (current) drug therapy; Z88.8 Allergy status to other drugs, medicaments and biological substances; Y90.9 Presence of alcohol in blood, level not specified
CPT/HCPCS: 36415; 70450; 71045; 80053; 80305; 80307; 80320; 80329; 81003; 82962; 84484; 85025; 93005; 96374; 99284; J1630; J2060; J7030; G0480

== ENCOUNTER 2019-01-24 09:28 | Emergency (ER) | payer MEDICAID ==
[~2019-01-24] VITALS: Ht 177.8 cm; Wt 80.0 kg
[2019-01-24 10:20] VITALS: BP 129/69
[2019-01-24] MEDS ORDERED: SODIUM CHLORIDE 0.9% 1,000 ML IV ONE (10:21)
[2019-01-24] MEDS ORDERED: ONDANSETRON HCL 4MG/2ML INJ IV ONE (10:30)
== END 2019-01-24 10:25 | disposition home or self-care (01) ==
LOC: ER 09:28
DX: T40.1X1A Poisoning by heroin, accidental (unintentional), initial encounter (principal); Y92.89 Other specified places as the place of occurrence of the external cause; G92 Toxic encephalopathy; F10.20 Alcohol dependence, uncomplicated; Y90.0 Blood alcohol level of less than 20 mg/100 ml; Z98.890 Other specified postprocedural states; Z79.899 Other long term (current) drug therapy; Z88.1 Allergy status to other antibiotic agents; Z88.8 Allergy status to other drugs, medicaments and biological substances
CPT/HCPCS: 99283; J7030

== ENCOUNTER 2019-01-27 01:38 | Emergency (ER) | payer MEDICAID ==
[~2019-01-27] VITALS: Ht 175.3 cm; Wt 73.0 kg
[2019-01-27 04:07] VITALS: BP 134/90
== END 2019-01-27 04:14 | disposition left against medical advice (07) ==
LOC: ER 01:38
DX: G40.909 Epilepsy, unspecified, not intractable, without status epilepticus (principal)
CPT/HCPCS: 93005; 99283

== ENCOUNTER 2019-01-29 14:02 | Emergency (ER) | payer MEDICAID ==
[~2019-01-29] VITALS: Ht 177.8 cm; Wt 75.0 kg
[2019-01-29] MEDS ORDERED: ONDANSETRON HCL 4MG/2ML INJ IV ONE (14:45)
[2019-01-29] MEDS ORDERED: LORAZEPAM 2MG/ML CPJ IV ONE (14:45)
[2019-01-29] MEDS ORDERED: FOLIC ACID 1 MG, THIAMINE HCL 100 MG, MVI, ADULT NO.1 10 ML in DEXTROSE 5% WATER 1,000 ML IV ONE ×4 (14:45)
[2019-01-29 16:00] LABS: BASOPHILS % 0.6 % (0.0-2.0); EOSINOPHILS % 0.7 % (0.0-5.0); HEMATOCRIT. 37.4 % (42.0-52.0); HEMOGLOBIN. 12.6 g/dL (14.0-18.0); LYMPHOCYTES % 14.1 % (20.0-50.0); MEAN CORPUSCULAR HEMOGLOBIN 30.9 pg (28.0-32.0); MEAN CORPUSCULAR VOLUME 91.9 fL (80.0-94.0); MEAN PLATELET VOLUME 7.5 fl (7.4-10.4); MONOCYTES % 6.2 % (2.0-8.0); NEUTROPHILS % 78.4 % (40.0-76.0); PLATELET 173 x1000/uL (130-400); RED BLOOD CELL COUNT 4.07 mill/uL (4.7-6.1); RED CELL DISTRIBUTION WIDTH 15.5 % (11.6-14.6)
[2019-01-29 16:06] LABS: CHLORIDE 104 mEq/L (98-107)
[2019-01-29 16:10] LABS: ETHANOL BLOOD 212 mg/dL
[2019-01-29] MEDS ORDERED: POTASSIUM CHLORIDE 20MEQ TABLET SR PO ONE (16:30)
[2019-01-29 17:54] VITALS: BP 112/62
== END 2019-01-29 17:56 | disposition home or self-care (01) ==
LOC: ER 14:02
DX: T40.1X1A Poisoning by heroin, accidental (unintentional), initial encounter (principal); T51.0X1A Toxic effect of ethanol, accidental (unintentional), initial encounter; S01.81XA Laceration without foreign body of other part of head, initial encounter; G40.909 Epilepsy, unspecified, not intractable, without status epilepticus; E87.8 Other disorders of electrolyte and fluid balance, not elsewhere classified; W01.0XXA Fall on same level from slipping, tripping and stumbling without subsequent striking against object, initial encounter; Y93.89 Activity, other specified; Y92.488 Other paved roadways as the place of occurrence of the external cause
CPT/HCPCS: 36415; 70450; 80053; 80307; 80320; 80329; 85025; 96365; 96375; 99284; J2060; J2405; J3411; J3490; J7070; G0480

== ENCOUNTER 2019-01-30 18:17 | Emergency (ER) | payer MEDICAID ==
[~2019-01-30] VITALS: Ht 172.7 cm; Wt 64.0 kg
[2019-01-30 18:47] VITALS: BP 118/70
[2019-01-30] MEDS ORDERED: CHLORDIAZEPOXIDE 25MG CAPSULE PO ONE (19:15)
== END 2019-01-30 21:31 | disposition home or self-care (01) ==
LOC: ER 18:17
DX: R10.9 Unspecified abdominal pain (principal); F10.10 Alcohol abuse, uncomplicated; Y90.9 Presence of alcohol in blood, level not specified; G40.909 Epilepsy, unspecified, not intractable, without status epilepticus; Z87.19 Personal history of other diseases of the digestive system
CPT/HCPCS: 99283

== ENCOUNTER 2019-01-30 22:01 | Emergency (ER) | payer MEDICAID ==
[~2019-01-30] VITALS: Ht 177.8 cm; Wt 65.2 kg
[2019-01-31 03:45] LABS: BASOPHILS % 0.7 % (0.0-2.0); EOSINOPHILS % 2.6 % (0.0-5.0); HEMATOCRIT. 34.9 % (42.0-52.0); HEMOGLOBIN. 11.7 g/dL (14.0-18.0); LYMPHOCYTES % 25.7 % (20.0-50.0); MEAN CORPUSCULAR HEMOGLOBIN 30.7 pg (28.0-32.0); MEAN CORPUSCULAR VOLUME 91.7 fL (80.0-94.0); MEAN PLATELET VOLUME 7.9 fl (7.4-10.4); MONOCYTES % 7.6 % (2.0-8.0); NEUTROPHILS % 63.4 % (40.0-76.0); PLATELET 175 x1000/uL (130-400); RED BLOOD CELL COUNT 3.81 mill/uL (4.7-6.1); RED CELL DISTRIBUTION WIDTH 15.1 % (11.6-14.6)
[2019-01-31 03:48] LABS: CHLORIDE 103 mEq/L (98-107)
[2019-01-31] MEDS ORDERED: CLONAZEPAM 1MG TABLET PO ONE (04:15)
[2019-01-31 06:19] VITALS: BP 119/78
== END 2019-01-31 06:19 | disposition home or self-care (01) ==
LOC: ER 22:01
DX: R10.9 Unspecified abdominal pain (principal); G40.909 Epilepsy, unspecified, not intractable, without status epilepticus; Z59.0 Homelessness; F17.200 Nicotine dependence, unspecified, uncomplicated; E11.9 Type 2 diabetes mellitus without complications; Z79.899 Other long term (current) drug therapy; Z88.8 Allergy status to other drugs, medicaments and biological substances; Z88.1 Allergy status to other antibiotic agents
CPT/HCPCS: 36415; 99283

== ENCOUNTER 2019-02-11 20:21 | Emergency (ER) | payer MEDICAID ==
[~2019-02-11] VITALS: Ht 172.7 cm; Wt 77.0 kg
[2019-02-11] MEDS ORDERED: SODIUM CHLORIDE 0.9% 1,000 ML IV ONE (21:53)
[2019-02-11] MEDS ORDERED: ONDANSETRON HCL 4MG/2ML INJ IV STA (21:53)
[2019-02-11] MEDS ORDERED: LORAZEPAM 2MG/ML CPJ IV ONE ×2 (22:00→23:30)
[2019-02-11] MEDS ORDERED: FOLIC ACID 1 MG, THIAMINE HCL 100 MG, MVI, ADULT NO.1 10 ML in DEXTROSE 5% WATER 1,000 ML IV ONE ×4 (22:00)
[2019-02-11 22:29] LABS: CLARITY URINE CLEAR (CLEAR); COLOR URINE YELLOW (YELLOW); KETONES URINE NEGATIVE (NEGATIVE); LEUKOCYTE ESTERASE URINE NEGATIVE (NEGATIVE); NITRITE URINE NEGATIVE (NEGATIVE); OCCULT BLOOD URINE NEGATIVE (NEGATIVE); PH URINE 7.5 (4.5-8.0); PROTEIN URINE NEGATIVE (NEGATIVE); SPECIFIC GRAVITY URINE 1.002 (1.005-1.030); UROBILINOGEN URINE 0.2 E.U./dL (0.2-1.0)
[2019-02-11 22:42] LABS: *BARBITURATES SCREEN URINE NEGATIVE (NEGATIVE)
[2019-02-11 22:43] LABS: *AMPHETAMINES SCREEN URINE NEGATIVE (NEGATIVE); *BENZODIAZEPINES SCREEN URINE PRESUMTIVE POSITIVE (NEGATIVE); *COCAINE SCREEN URINE PRESUMTIVE POSITIVE (NEGATIVE); METHADONE URINE SCREEN NEGATIVE (NEGATIVE); OPIATES URINE SCREEN PRESUMTIVE POSITIVE (NEGATIVE)
[2019-02-11 22:44] LABS: CANNABINOID URINE SCREEN NEGATIVE (NEGATIVE); PHENCYCLIDINE URINE SCREEN PRESUMTIVE POSITIVE (NEGATIVE)
[2019-02-11 23:12] LABS: BASOPHILS % 1.4 % (0.0-2.0); EOSINOPHILS % 0.4 % (0.0-5.0); HEMATOCRIT. 36.9 % (42.0-52.0); HEMOGLOBIN. 12.6 g/dL (14.0-18.0); LYMPHOCYTES % 29.3 % (20.0-50.0); MEAN CORPUSCULAR HEMOGLOBIN 31.8 pg (28.0-32.0); MEAN CORPUSCULAR VOLUME 93.5 fL (80.0-94.0); MEAN PLATELET VOLUME 7.5 fl (7.4-10.4); MONOCYTES % 6.4 % (2.0-8.0); NEUTROPHILS % 62.5 % (40.0-76.0); PLATELET 286 x1000/uL (130-400); RED BLOOD CELL COUNT 3.95 mill/uL (4.7-6.1); RED CELL DISTRIBUTION WIDTH 16.4 % (11.6-14.6)
[2019-02-11 23:19] LABS: CHLORIDE 115 mEq/L (98-107)
[2019-02-11 23:21] LABS: PARTIAL THROMBOPLASTIN TIME 26.2 sec (23.4-31.0)
[2019-02-11 23:23] LABS: ETHANOL BLOOD 175 mg/dL
[2019-02-11 23:27] LABS: CREATINE KINASE 851 IU/L (39-308)
[2019-02-11 23:30] LABS: CREATINE KINASE MB FRACTION 7.1 ng/mL (0.5-3.6)
[2019-02-11] MEDS ORDERED: OLANZAPINE 10 MG/VIAL IM ONE (23:30)
[2019-02-12 10:03] VITALS: BP 120/67
== END 2019-02-12 10:14 | disposition home or self-care (01) ==
LOC: ER 20:21
DX: T51.0X1A Toxic effect of ethanol, accidental (unintentional), initial encounter (principal); T40.5X1A Poisoning by cocaine, accidental (unintentional), initial encounter; T40.991A Poisoning by other psychodysleptics [hallucinogens], accidental (unintentional), initial encounter; G92 Toxic encephalopathy; M62.82 Rhabdomyolysis; S00.83XA Contusion of other part of head, initial encounter; G40.909 Epilepsy, unspecified, not intractable, without status epilepticus; Y90.6 Blood alcohol level of 120-199 mg/100 ml; Z98.890 Other specified postprocedural states; Z88.8 Allergy status to other drugs, medicaments and biological substances; W01.0XXA Fall on same level from slipping, tripping and stumbling without subsequent striking against object, initial encounter; Y93.89 Activity, other specified; Y92.488 Other paved roadways as the place of occurrence of the external cause
CPT/HCPCS: 36415; 70450; 71045; 80053; 80305; 80320; 81003; 82550; 82553; 83690; 84443; 84484; 85025; 85610; 85730; 86850; 86900; 86901; 93005; 96361; 96365; 96366; 96374; 96375; 96376; 99284; J2060; J2405; J3411; J3490; J7030; J7070; Z7610; G0480

== ENCOUNTER 2019-02-14 07:26 | Emergency (ER) | payer MEDICAID ==
[2019-02-14] MEDS ORDERED: LORAZEPAM 2MG/ML CPJ IV STA (07:56)
[2019-02-14] MEDS ORDERED: SODIUM CHLORIDE 0.9% 1,000 ML IV ONE (07:56)
[2019-02-14] MEDS: CLONAZEPAM 1MG TABLET PO NR (09:00)
[2019-02-14 09:15] LABS: BASOPHILS % 1.3 % (0.0-2.0); HEMATOCRIT. 39.7 % (42.0-52.0); HEMOGLOBIN. 13.1 g/dL (14.0-18.0); LYMPHOCYTES % 38.6 % (20.0-50.0); MEAN CORPUSCULAR HEMOGLOBIN 31.2 pg (28.0-32.0); MEAN CORPUSCULAR VOLUME 94.4 fL (80.0-94.0); MEAN PLATELET VOLUME 8.3 fl (7.4-10.4); MONOCYTES % 8.3 % (2.0-8.0); NEUTROPHILS % 50.8 % (40.0-76.0); PLATELET 295 x1000/uL (130-400); RED BLOOD CELL COUNT 4.21 mill/uL (4.7-6.1); RED CELL DISTRIBUTION WIDTH 15.9 % (11.6-14.6)
[2019-02-14 09:21] LABS: CHLORIDE 111 mEq/L (98-107)
[2019-02-14 09:27] LABS: ETHANOL BLOOD 105 mg/dL
[2019-02-14 09:44] LABS: CLARITY URINE CLEAR (CLEAR); COLOR URINE YELLOW (YELLOW); KETONES URINE NEGATIVE (NEGATIVE); LEUKOCYTE ESTERASE URINE NEGATIVE (NEGATIVE); NITRITE URINE NEGATIVE (NEGATIVE); OCCULT BLOOD URINE NEGATIVE (NEGATIVE); PROTEIN URINE NEGATIVE (NEGATIVE); SPECIFIC GRAVITY URINE 1.003 (1.005-1.030); UROBILINOGEN URINE 0.2 E.U./dL (0.2-1.0)
[2019-02-14 10:15] LABS: *AMPHETAMINES SCREEN URINE NEGATIVE (NEGATIVE); *BARBITURATES SCREEN URINE NEGATIVE (NEGATIVE); *BENZODIAZEPINES SCREEN URINE NEGATIVE (NEGATIVE); *COCAINE SCREEN URINE NEGATIVE (NEGATIVE); METHADONE URINE SCREEN NEGATIVE (NEGATIVE)
[2019-02-14 10:16] LABS: CANNABINOID URINE SCREEN NEGATIVE (NEGATIVE); OPIATES URINE SCREEN PRESUMTIVE POSITIVE (NEGATIVE)
[2019-02-14 10:19] LABS: PHENCYCLIDINE URINE SCREEN PRESUMTIVE POSITIVE (NEGATIVE)
[2019-02-14 10:25] VITALS: BP 132/82
== END 2019-02-14 11:09 | disposition home or self-care (01) ==
LOC: ER 07:26
DX: R56.9 Unspecified convulsions (principal); Z79.899 Other long term (current) drug therapy; Z88.8 Allergy status to other drugs, medicaments and biological substances; Z88.1 Allergy status to other antibiotic agents
CPT/HCPCS: 36415; 70450; 80053; 80305; 80320; 81003; 85025; 99284; J7030; G0480

== ENCOUNTER 2019-02-17 12:10 | Emergency (ER) | payer MEDICAID ==
[~2019-02-17] VITALS: Ht 180.3 cm; Wt 74.0 kg
[2019-02-17 15:00] VITALS: BP 119/74
[2019-02-17] MEDS ORDERED: CLONAZEPAM 1MG TABLET PO ONE (15:45)
== END 2019-02-17 15:55 | disposition home or self-care (01) ==
LOC: ER 12:10
DX: G40.409 Other generalized epilepsy and epileptic syndromes, not intractable, without status epilepticus (principal); R10.32 Left lower quadrant pain; Z87.19 Personal history of other diseases of the digestive system; Z79.899 Other long term (current) drug therapy; Z88.8 Allergy status to other drugs, medicaments and biological substances
CPT/HCPCS: 99283

== ENCOUNTER 2019-02-18 22:55 | Emergency (ER) | payer MEDICAID ==
[~2019-02-18] VITALS: Ht 177.8 cm; Wt 75.0 kg
[2019-02-19 03:47] LABS: CLARITY URINE CLEAR (CLEAR); COLOR URINE YELLOW (YELLOW); KETONES URINE TRACE (NEGATIVE); LEUKOCYTE ESTERASE URINE NEGATIVE (NEGATIVE); NITRITE URINE NEGATIVE (NEGATIVE); OCCULT BLOOD URINE NEGATIVE (NEGATIVE); PROTEIN URINE NEGATIVE (NEGATIVE); SPECIFIC GRAVITY URINE 1.015 (1.005-1.030); UROBILINOGEN URINE 0.2 E.U./dL (0.2-1.0)
[2019-02-19] MEDS ORDERED: KETOROLAC 60MG/2ML VIAL IM ONE (05:00)
[2019-02-19] MEDS ORDERED: CLONAZEPAM 1MG TABLET PO ONE (05:00)
[2019-02-19 06:39] VITALS: BP 113/59
== END 2019-02-19 06:44 | disposition home or self-care (01) ==
LOC: ER 22:55
DX: M54.5 Low back pain (principal); G40.909 Epilepsy, unspecified, not intractable, without status epilepticus; Z87.19 Personal history of other diseases of the digestive system; Z88.8 Allergy status to other drugs, medicaments and biological substances
CPT/HCPCS: 81003; 96372; 99283; J1885; Z7610

== ENCOUNTER 2019-02-20 16:49 | Emergency (ER) | payer MEDICAID ==
[~2019-02-20] VITALS: Ht 175.3 cm; Wt 79.0 kg
[2019-02-20] MEDS ORDERED: SODIUM CHLORIDE 0.9% 1,000 ML IV ONE (17:30)
[2019-02-20] MEDS ORDERED: LORAZEPAM 2MG/ML CPJ IV ONE ×2 (17:30→21:00)
[2019-02-20] MEDS ORDERED: ONDANSETRON HCL 4MG/2ML INJ IV ONE (17:30)
[2019-02-20 18:28] LABS: CLARITY URINE CLEAR (CLEAR); COLOR URINE YELLOW (YELLOW); KETONES URINE NEGATIVE (NEGATIVE); LEUKOCYTE ESTERASE URINE NEGATIVE (NEGATIVE); NITRITE URINE NEGATIVE (NEGATIVE); OCCULT BLOOD URINE NEGATIVE (NEGATIVE); PH URINE 5.5 (4.5-8.0); PROTEIN URINE NEGATIVE (NEGATIVE); SPECIFIC GRAVITY URINE 1.004 (1.005-1.030); UROBILINOGEN URINE 0.2 E.U./dL (0.2-1.0)
[2019-02-20 18:41] LABS: *AMPHETAMINES SCREEN URINE NEGATIVE (NEGATIVE); *BARBITURATES SCREEN URINE NEGATIVE (NEGATIVE); *BENZODIAZEPINES SCREEN URINE NEGATIVE (NEGATIVE); *COCAINE SCREEN URINE PRESUMTIVE POSITIVE (NEGATIVE)
[2019-02-20 18:42] LABS: CANNABINOID URINE SCREEN NEGATIVE (NEGATIVE); METHADONE URINE SCREEN NEGATIVE (NEGATIVE); OPIATES URINE SCREEN PRESUMTIVE POSITIVE (NEGATIVE); PHENCYCLIDINE URINE SCREEN PRESUMTIVE POSITIVE (NEGATIVE)
[2019-02-20] MEDS ORDERED: OLANZAPINE 10 MG/VIAL IM ONE (21:00)
[2019-02-21] MEDS ORDERED: CLONAZEPAM 1MG TABLET PO ONE (09:00)
[2019-02-21 10:00] VITALS: BP 133/78
== END 2019-02-21 10:00 | disposition home or self-care (01) ==
LOC: ER 16:49
DX: G92 Toxic encephalopathy (principal); F14.10 Cocaine abuse, uncomplicated; I10 Essential (primary) hypertension; F17.200 Nicotine dependence, unspecified, uncomplicated; F11.10 Opioid abuse, uncomplicated; Z79.899 Other long term (current) drug therapy; Z88.1 Allergy status to other antibiotic agents; Z88.8 Allergy status to other drugs, medicaments and biological substances
CPT/HCPCS: 80305; 81003; 96374; 96375; 99283; J2060; J2405; J7030; Z7610

== ENCOUNTER 2019-02-21 21:57 | Emergency (ER) | payer MEDICAID ==
[~2019-02-21] VITALS: Ht 182.9 cm; Wt 73.0 kg
[2019-02-21] MEDS ORDERED: SODIUM CHLORIDE 0.9% 1,000 ML IV ONE (23:42)
[2019-02-21] MEDS ORDERED: ONDANSETRON HCL 4MG/2ML INJ IV STA (23:42)
[2019-02-21] MEDS ORDERED: FOLIC ACID 1 MG, THIAMINE HCL 100 MG, MVI, ADULT NO.1 10 ML in DEXTROSE 5% WATER 1,000 ML IV ONE ×4 (23:45)
[2019-02-21] MEDS ORDERED: BACITRACIN ZINC OINT UDPKT TOP ONE (23:45)
[2019-02-22 00:01] LABS: BASOPHILS % 0.4 % (0.0-2.0); EOSINOPHILS % 1.3 % (0.0-5.0); HEMATOCRIT. 39.2 % (42.0-52.0); HEMOGLOBIN. 12.9 g/dL (14.0-18.0); LYMPHOCYTES % 11.5 % (20.0-50.0); MEAN CORPUSCULAR HEMOGLOBIN 30.4 pg (28.0-32.0); MEAN CORPUSCULAR VOLUME 92.8 fL (80.0-94.0); MEAN PLATELET VOLUME 6.9 fl (7.4-10.4); NEUTROPHILS % 79.8 % (40.0-76.0); PLATELET 306 x1000/uL (130-400); RED BLOOD CELL COUNT 4.22 mill/uL (4.7-6.1); RED CELL DISTRIBUTION WIDTH 16.4 % (11.6-14.6)
[2019-02-22 00:04] LABS: CHLORIDE 113 mEq/L (98-107)
[2019-02-22 00:12] LABS: ETHANOL BLOOD 149 mg/dL
[2019-02-22 06:04] LABS: *AMPHETAMINES SCREEN URINE NEGATIVE (NEGATIVE); *BARBITURATES SCREEN URINE NEGATIVE (NEGATIVE); *BENZODIAZEPINES SCREEN URINE NEGATIVE (NEGATIVE); *COCAINE SCREEN URINE PRESUMTIVE POSITIVE (NEGATIVE); METHADONE URINE SCREEN NEGATIVE (NEGATIVE); OPIATES URINE SCREEN NEGATIVE (NEGATIVE)
[2019-02-22 06:05] LABS: CANNABINOID URINE SCREEN NEGATIVE (NEGATIVE); PHENCYCLIDINE URINE SCREEN PRESUMTIVE POSITIVE (NEGATIVE)
[2019-02-22] MEDS ORDERED: CLONAZEPAM 1MG TABLET PO ONE (08:15)
[2019-02-22] MEDS ORDERED: ACETAMINOPHEN 325MG TABLET PO ONE (08:15)
[2019-02-22 11:10] VITALS: BP 128/78
== END 2019-02-22 11:11 | disposition home or self-care (01) ==
LOC: ER 21:57
DX: T51.0X1A Toxic effect of ethanol, accidental (unintentional), initial encounter (principal); G92 Toxic encephalopathy; S09.90XA Unspecified injury of head, initial encounter; F16.10 Hallucinogen abuse, uncomplicated; I10 Essential (primary) hypertension; E11.9 Type 2 diabetes mellitus without complications; G89.29 Other chronic pain; M54.5 Low back pain; E86.0 Dehydration; G40.909 Epilepsy, unspecified, not intractable, without status epilepticus; Y90.6 Blood alcohol level of 120-199 mg/100 ml; Z59.0 Homelessness; Z88.8 Allergy status to other drugs, medicaments and biological substances; Z79.84 Long term (current) use of oral hypoglycemic drugs; Y92.524 Gas station as the place of occurrence of the external cause
CPT/HCPCS: 36415; 70450; 80053; 80305; 80320; 83690; 84484; 85025; 93005; 96361; 96365; 96366; 96375; 99284; J2405; J3411; J3490; J7030; J7070; Z7610; G0480

== ENCOUNTER 2019-02-23 02:04 | Emergency (ER) | payer MEDICAID ==
[~2019-02-23] VITALS: Ht 170.2 cm; Wt 78.0 kg
[2019-02-23] MEDS ORDERED: SODIUM CHLORIDE 0.9% 1,000 ML IV ONE (03:28)
[2019-02-23 03:42] LABS: BASOPHILS % 0.7 % (0.0-2.0); EOSINOPHILS % 3.1 % (0.0-5.0); HEMATOCRIT. 37.4 % (42.0-52.0); HEMOGLOBIN. 12.5 g/dL (14.0-18.0); LYMPHOCYTES % 25.2 % (20.0-50.0); MEAN CORPUSCULAR HEMOGLOBIN 31.2 pg (28.0-32.0); MEAN CORPUSCULAR VOLUME 93.4 fL (80.0-94.0); MEAN PLATELET VOLUME 6.8 fl (7.4-10.4); MONOCYTES % 10.5 % (2.0-8.0); NEUTROPHILS % 60.5 % (40.0-76.0); PLATELET 308 x1000/uL (130-400); RED BLOOD CELL COUNT 4.01 mill/uL (4.7-6.1); RED CELL DISTRIBUTION WIDTH 16.8 % (11.6-14.6)
[2019-02-23 03:53] LABS: CHLORIDE 109 mEq/L (98-107)
[2019-02-23] MEDS ORDERED: HYDROCODONE/ACETAMINOPHEN 5/325MG TABLET PO ONE (04:00)
[2019-02-23 04:55] LABS: CLARITY URINE CLEAR (CLEAR); COLOR URINE YELLOW (YELLOW); KETONES URINE NEGATIVE (NEGATIVE); LEUKOCYTE ESTERASE URINE TRACE (NEGATIVE); NITRITE URINE NEGATIVE (NEGATIVE); OCCULT BLOOD URINE NEGATIVE (NEGATIVE); PH URINE 5.5 (4.5-8.0); PROTEIN URINE NEGATIVE (NEGATIVE); SPECIFIC GRAVITY URINE 1.012 (1.005-1.030); UROBILINOGEN URINE 0.2 E.U./dL (0.2-1.0)
[2019-02-23] MEDS ORDERED: CLONAZEPAM 1MG TABLET PO ONE (05:15)
[2019-02-23] MEDS ORDERED: IBUPROFEN 400MG TABLET PO ONE (09:15)
[2019-02-23 09:17] VITALS: BP 110/60
== END 2019-02-23 09:50 | disposition left against medical advice (07) ==
LOC: ER 02:04
DX: S09.8XXA Other specified injuries of head, initial encounter (principal); S20.212A Contusion of left front wall of thorax, initial encounter; S20.211A Contusion of right front wall of thorax, initial encounter; R56.9 Unspecified convulsions; F10.20 Alcohol dependence, uncomplicated; Y90.0 Blood alcohol level of less than 20 mg/100 ml; Y08.89XA Assault by other specified means, initial encounter; Y93.89 Activity, other specified; Y92.89 Other specified places as the place of occurrence of the external cause; Y99.8 Other external cause status; Z79.899 Other long term (current) drug therapy; Z88.9 Allergy status to unspecified drugs, medicaments and biological substances; Z88.8 Allergy status to other drugs, medicaments and biological substances; Z88.1 Allergy status to other antibiotic agents; Z88.2 Allergy status to sulfonamides
CPT/HCPCS: 36415; 70450; 71111; 73000; 80048; 81003; 85025; 99284; J7030; Z7610; L3670

== ENCOUNTER 2019-02-23 19:02 | Emergency (ER) | payer MEDICAID ==
[~2019-02-23] VITALS: Ht 185.4 cm; Wt 73.0 kg
[2019-02-23 22:20] LABS: BASOPHILS % 0.1 % (0.0-2.0); EOSINOPHILS % 2.4 % (0.0-5.0); HEMOGLOBIN. 13.1 g/dL (14.0-18.0); LYMPHOCYTES % 28.1 % (20.0-50.0); MEAN CORPUSCULAR HEMOGLOBIN 31.4 pg (28.0-32.0); MEAN CORPUSCULAR VOLUME 93.3 fL (80.0-94.0); MEAN PLATELET VOLUME 7.6 fl (7.4-10.4); MONOCYTES % 8.8 % (2.0-8.0); NEUTROPHILS % 60.6 % (40.0-76.0); PLATELET 292 x1000/uL (130-400); RED BLOOD CELL COUNT 4.18 mill/uL (4.7-6.1); RED CELL DISTRIBUTION WIDTH 16.7 % (11.6-14.6)
[2019-02-23 22:26] LABS: CHLORIDE 112 mEq/L (98-107)
[2019-02-23 22:30] LABS: ETHANOL BLOOD < 10 mg/dL
[2019-02-23 22:33] LABS: CLARITY URINE CLEAR (CLEAR); COLOR URINE YELLOW (YELLOW); KETONES URINE NEGATIVE (NEGATIVE); LEUKOCYTE ESTERASE URINE NEGATIVE (NEGATIVE); NITRITE URINE NEGATIVE (NEGATIVE); OCCULT BLOOD URINE NEGATIVE (NEGATIVE); PH URINE 5.5 (4.5-8.0); PROTEIN URINE NEGATIVE (NEGATIVE); SPECIFIC GRAVITY URINE 1.007 (1.005-1.030); UROBILINOGEN URINE 0.2 E.U./dL (0.2-1.0)
[2019-02-23 22:52] LABS: *AMPHETAMINES SCREEN URINE NEGATIVE (NEGATIVE)
[2019-02-23 22:53] LABS: *BARBITURATES SCREEN URINE NEGATIVE (NEGATIVE); *BENZODIAZEPINES SCREEN URINE NEGATIVE (NEGATIVE); *COCAINE SCREEN URINE NEGATIVE (NEGATIVE); METHADONE URINE SCREEN NEGATIVE (NEGATIVE); OPIATES URINE SCREEN PRESUMTIVE POSITIVE (NEGATIVE); PHENCYCLIDINE URINE SCREEN PRESUMTIVE POSITIVE (NEGATIVE)
[2019-02-23 22:54] LABS: CANNABINOID URINE SCREEN NEGATIVE (NEGATIVE)
[2019-02-24 05:30] VITALS: BP 128/83
== END 2019-02-24 08:30 | disposition left against medical advice (07) ==
LOC: ER 19:14
DX: T40.991A Poisoning by other psychodysleptics [hallucinogens], accidental (unintentional), initial encounter (principal); F16.129 Hallucinogen abuse with intoxication, unspecified; G40.909 Epilepsy, unspecified, not intractable, without status epilepticus; Y92.480 Sidewalk as the place of occurrence of the external cause; Z59.0 Homelessness
CPT/HCPCS: 36415; 80053; 80305; 80307; 80320; 80329; 81003; 85025; 93005; 99284; Z7610; G0480

== ENCOUNTER 2019-02-25 01:39 | Emergency (ER) | payer MEDICAID ==
[~2019-02-25] VITALS: Ht 170.2 cm; Wt 73.0 kg
[2019-02-25 02:11] VITALS: BP 118/81
[2019-02-25] MEDS ORDERED: SODIUM CHLORIDE 0.9% 1,000 ML IV ONE (02:21)
[2019-02-25] MEDS ORDERED: ONDANSETRON HCL 4MG/2ML INJ IV STA (02:21)
[2019-02-25 02:42] LABS: BASOPHILS % 0.9 % (0.0-2.0); EOSINOPHILS % 1.7 % (0.0-5.0); HEMOGLOBIN. 13.5 g/dL (14.0-18.0); LYMPHOCYTES % 21.2 % (20.0-50.0); MEAN CORPUSCULAR HEMOGLOBIN 31.4 pg (28.0-32.0); MEAN CORPUSCULAR VOLUME 93.2 fL (80.0-94.0); MEAN PLATELET VOLUME 7.3 fl (7.4-10.4); NEUTROPHILS % 68.2 % (40.0-76.0); PLATELET 300 x1000/uL (130-400); RED BLOOD CELL COUNT 4.29 mill/uL (4.7-6.1); RED CELL DISTRIBUTION WIDTH 16.6 % (11.6-14.6)
[2019-02-25 02:58] LABS: CHLORIDE 114 mEq/L (98-107)
== END 2019-02-25 03:53 | disposition left against medical advice (07) ==
LOC: ER 01:39
DX: S00.211A Abrasion of right eyelid and periocular area, initial encounter (principal); F17.200 Nicotine dependence, unspecified, uncomplicated; Z79.899 Other long term (current) drug therapy; Z88.2 Allergy status to sulfonamides; Z88.1 Allergy status to other antibiotic agents; Z88.8 Allergy status to other drugs, medicaments and biological substances; Y08.89XA Assault by other specified means, initial encounter; Y93.9 Activity, unspecified; Y92.89 Other specified places as the place of occurrence of the external cause; Y99.8 Other external cause status
CPT/HCPCS: 36415; 80053; 85025; 99283; J7030

== ENCOUNTER 2019-02-25 06:19 | Emergency (ER) | payer MEDICAID ==
[~2019-02-25] VITALS: Ht 180.3 cm; Wt 67.0 kg
[2019-02-25] MEDS ORDERED: ACETAMINOPHEN 325MG TABLET PO STA (07:27)
[2019-02-25] MEDS ORDERED: CLONAZEPAM 1MG TABLET PO ONE (07:45)
[2019-02-25 08:56] VITALS: BP 128/80
== END 2019-02-25 09:40 | disposition home or self-care (01) ==
LOC: ER 06:19
DX: S00.83XA Contusion of other part of head, initial encounter (principal); S20.212A Contusion of left front wall of thorax, initial encounter; S20.211A Contusion of right front wall of thorax, initial encounter; S00.03XA Contusion of scalp, initial encounter; G40.909 Epilepsy, unspecified, not intractable, without status epilepticus; Z79.899 Other long term (current) drug therapy; Z88.1 Allergy status to other antibiotic agents; Z88.2 Allergy status to sulfonamides; Z88.9 Allergy status to unspecified drugs, medicaments and biological substances; Y08.89XA Assault by other specified means, initial encounter; Y93.89 Activity, other specified; Y92.89 Other specified places as the place of occurrence of the external cause; Y99.8 Other external cause status
CPT/HCPCS: 71111; 99284

== ENCOUNTER 2019-02-26 16:02 | Emergency (ER) | payer MEDICAID ==
[~2019-02-26] VITALS: Ht 172.7 cm; Wt 73.0 kg
[2019-02-26] MEDS ORDERED: SODIUM CHLORIDE 0.9% 1,000 ML IV ONE (16:29)
[2019-02-26] MEDS ORDERED: ONDANSETRON HCL 4MG/2ML INJ IV STA (16:29)
[2019-02-26 17:23] LABS: BASOPHILS % 0.8 % (0.0-2.0); EOSINOPHILS % 0.8 % (0.0-5.0); HEMATOCRIT. 36.2 % (42.0-52.0); HEMOGLOBIN. 11.7 g/dL (14.0-18.0); LYMPHOCYTES % 18.3 % (20.0-50.0); MEAN CORPUSCULAR HEMOGLOBIN 31.2 pg (28.0-32.0); MEAN CORPUSCULAR VOLUME 96.8 fL (80.0-94.0); MONOCYTES % 8.7 % (2.0-8.0); NEUTROPHILS % 71.4 % (40.0-76.0); RED BLOOD CELL COUNT 3.74 mill/uL (4.7-6.1); RED CELL DISTRIBUTION WIDTH 16.7 % (11.6-14.6)
[2019-02-26 17:31] LABS: CHLORIDE 113 mEq/L (98-107)
[2019-02-26 17:38] LABS: ETHANOL BLOOD 229 mg/dL
[2019-02-26 17:41] LABS: CREATINE KINASE 200 IU/L (39-308); CREATINE KINASE MB FRACTION 3.7 ng/mL (0.5-3.6)
[2019-02-26 18:56] LABS: CLARITY URINE CLEAR (CLEAR); COLOR URINE YELLOW (YELLOW); KETONES URINE NEGATIVE (NEGATIVE); LEUKOCYTE ESTERASE URINE NEGATIVE (NEGATIVE); NITRITE URINE NEGATIVE (NEGATIVE); OCCULT BLOOD URINE NEGATIVE (NEGATIVE); PROTEIN URINE NEGATIVE (NEGATIVE); SPECIFIC GRAVITY URINE 1.011 (1.005-1.030); UROBILINOGEN URINE 0.2 E.U./dL (0.2-1.0)
[2019-02-26 19:20] LABS: *AMPHETAMINES SCREEN URINE NEGATIVE (NEGATIVE); *BARBITURATES SCREEN URINE NEGATIVE (NEGATIVE); *BENZODIAZEPINES SCREEN URINE NEGATIVE (NEGATIVE); *COCAINE SCREEN URINE PRESUMTIVE POSITIVE (NEGATIVE)
[2019-02-26 19:21] LABS: CANNABINOID URINE SCREEN NEGATIVE (NEGATIVE); METHADONE URINE SCREEN NEGATIVE (NEGATIVE); OPIATES URINE SCREEN PRESUMTIVE POSITIVE (NEGATIVE); PHENCYCLIDINE URINE SCREEN PRESUMTIVE POSITIVE (NEGATIVE)
[2019-02-27 05:25] VITALS: BP 106/68
== END 2019-02-27 06:41 | disposition home or self-care (01) ==
LOC: ER 16:02
DX: T40.5X1A Poisoning by cocaine, accidental (unintentional), initial encounter (principal); T40.0X1A Poisoning by opium, accidental (unintentional), initial encounter; T51.0X1A Toxic effect of ethanol, accidental (unintentional), initial encounter; F16.10 Hallucinogen abuse, uncomplicated; E86.0 Dehydration; Z88.8 Allergy status to other drugs, medicaments and biological substances; G40.909 Epilepsy, unspecified, not intractable, without status epilepticus; G92 Toxic encephalopathy; Y92.488 Other paved roadways as the place of occurrence of the external cause
CPT/HCPCS: 36415; 70450; 71045; 80053; 80305; 80320; 81003; 82140; 82550; 82553; 83690; 83880; 84443; 84484; 85025; 93005; 96361; 96374; 99284; J2405; J7030; G0480

== ENCOUNTER 2019-03-01 04:14 | Inpatient (IN) | payer MEDICAID ==
[~2019-03-01] VITALS: Ht 167.6 cm; Wt 72.0 kg
[2019-03-01] MEDS ORDERED: SODIUM CHLORIDE 0.9% 1,000 ML IV ONE (05:03)
[2019-03-01] MEDS ORDERED: PIPERACILLIN/TAZOBACTAM 3.375GM/50ML PREMIX IV ONE (05:15)
[2019-03-01] MEDS ORDERED: PIPERACILLIN/TAZ 3.375G PREMIX 50 ML IV NR (05:15)
[2019-03-01] MEDS ORDERED: VANCOMYCIN 1 G PREMIX 200 ML IV SCH (05:15)
[2019-03-01 05:45] LABS: CLARITY URINE CLEAR (CLEAR); COLOR URINE YELLOW (YELLOW); KETONES URINE NEGATIVE (NEGATIVE); LEUKOCYTE ESTERASE URINE NEGATIVE (NEGATIVE); NITRITE URINE NEGATIVE (NEGATIVE); OCCULT BLOOD URINE NEGATIVE (NEGATIVE); PROTEIN URINE NEGATIVE (NEGATIVE); SPECIFIC GRAVITY URINE 1.011 (1.005-1.030); UROBILINOGEN URINE 0.2 E.U./dL (0.2-1.0)
[2019-03-01 05:56] LABS: CHLORIDE 105 mEq/L (98-107)
[2019-03-01 05:59] LABS: *AMPHETAMINES SCREEN URINE NEGATIVE (NEGATIVE); *BARBITURATES SCREEN URINE NEGATIVE (NEGATIVE); *BENZODIAZEPINES SCREEN URINE NEGATIVE (NEGATIVE); *COCAINE SCREEN URINE NEGATIVE (NEGATIVE); CANNABINOID URINE SCREEN NEGATIVE (NEGATIVE); METHADONE URINE SCREEN NEGATIVE (NEGATIVE); OPIATES URINE SCREEN PRESUMTIVE POSITIVE (NEGATIVE); PHENCYCLIDINE URINE SCREEN PRESUMTIVE POSITIVE (NEGATIVE)
[2019-03-01 05:59] LABS: ETHANOL BLOOD < 10 mg/dL
[2019-03-01 06:12] LABS: BASOPHILS % 0.8 % (0.0-2.0); HEMOGLOBIN. 11.6 g/dL (14.0-18.0); LYMPHOCYTES % 19.2 % (20.0-50.0); MEAN CORPUSCULAR VOLUME 93.9 fL (80.0-94.0); MEAN PLATELET VOLUME 8.7 fl (7.4-10.4); MONOCYTES % 9.8 % (2.0-8.0); NEUTROPHILS % 68.2 % (40.0-76.0); PLATELET 203 x1000/uL (130-400); RED BLOOD CELL COUNT 3.73 mill/uL (4.7-6.1); RED CELL DISTRIBUTION WIDTH 15.9 % (11.6-14.6)
[2019-03-01 07:51] VITALS: BP 130/89
== END 2019-03-01 10:03 | disposition left against medical advice (07) | DRG 663 ==
LOC: ER 04:14 → 6EST 05:59 → EDBEDREQ 06:03 → EDBEDREQTM 06:03 → ENRESERV 07:04
PROVIDERS: ADMIT Internal Medicine; ATTEND Internal Medicine
DX: D64.9 Anemia, unspecified (principal); F11.10 Opioid abuse, uncomplicated; Z53.21 Procedure and treatment not carried out due to patient leaving prior to being seen by health care provider; Z79.899 Other long term (current) drug therapy; Z88.8 Allergy status to other drugs, medicaments and biological substances
CPT/HCPCS: 36415; 80305; 80320; 81003; 83605; 96365; 99285; J2543; J3370; J7030; G0480

== ENCOUNTER 2019-03-03 11:44 | Inpatient (IN) | payer MEDICAID ==
[~2019-03-03] VITALS: Ht 177.8 cm; Wt 65.8 kg
[2019-03-03] MEDS ORDERED: SODIUM CHLORIDE 0.9% 1,000 ML IV ONE (12:11)
[2019-03-03 12:47] LABS: BASOPHILS % 0.3 % (0.0-2.0); EOSINOPHILS % 0.9 % (0.0-5.0); HEMATOCRIT. 32.7 % (42.0-52.0); HEMOGLOBIN. 10.8 g/dL (14.0-18.0); MEAN PLATELET VOLUME 7.6 fl (7.4-10.4); MONOCYTES % 7.4 % (2.0-8.0); NEUTROPHILS % 52.4 % (40.0-76.0); PLATELET 255 x1000/uL (130-400); RED BLOOD CELL COUNT 3.48 mill/uL (4.7-6.1); RED CELL DISTRIBUTION WIDTH 16.3 % (11.6-14.6)
[2019-03-03 12:53] LABS: CHLORIDE 113 mEq/L (98-107)
[2019-03-03 12:56] LABS: ETHANOL BLOOD 266 mg/dL
[2019-03-03 13:12] LABS: VALPROIC ACID < 3.0 ug/mL (50-100)
[2019-03-03 13:17] LABS: CREATINE KINASE 1388 IU/L (39-308)
[2019-03-03] MEDS ORDERED: KCL 10MEQ/50ML PREMIX 50 ML IV ONE (14:00)
[2019-03-03] MEDS ORDERED: FOLIC ACID 1 MG, THIAMINE HCL 100 MG, MVI, ADULT NO.1 10 ML in DEXTROSE 5% WATER 1,000 ML IV SCH ×4 (15:00)
[2019-03-03 15:49] LABS: CLARITY URINE CLEAR (CLEAR); COLOR URINE YELLOW (YELLOW); KETONES URINE NEGATIVE (NEGATIVE); LEUKOCYTE ESTERASE URINE NEGATIVE (NEGATIVE); NITRITE URINE NEGATIVE (NEGATIVE); OCCULT BLOOD URINE NEGATIVE (NEGATIVE); PROTEIN URINE NEGATIVE (NEGATIVE); SPECIFIC GRAVITY URINE 1.003 (1.005-1.030); UROBILINOGEN URINE 0.2 E.U./dL (0.2-1.0)
[2019-03-03] MEDS ORDERED: ONDANSETRON HCL 4MG/2ML INJ IV PRN (16:15)
[2019-03-03] MEDS ORDERED: LORAZEPAM 2MG/ML CPJ IV PRN (16:15)
[2019-03-03 16:41] LABS: *AMPHETAMINES SCREEN URINE NEGATIVE (NEGATIVE); *BARBITURATES SCREEN URINE NEGATIVE (NEGATIVE); *BENZODIAZEPINES SCREEN URINE NEGATIVE (NEGATIVE); *COCAINE SCREEN URINE PRESUMTIVE POSITIVE (NEGATIVE)
[2019-03-03 16:42] LABS: CANNABINOID URINE SCREEN NEGATIVE (NEGATIVE); METHADONE URINE SCREEN NEGATIVE (NEGATIVE); OPIATES URINE SCREEN PRESUMTIVE POSITIVE (NEGATIVE); PHENCYCLIDINE URINE SCREEN PRESUMTIVE POSITIVE (NEGATIVE)
[2019-03-03] MEDS: CHLORDIAZEPOXIDE 25MG CAPSULE PO SCH (22:34)
[2019-03-03 23:00] VITALS: BP 144/79
[2019-03-04 00:49] VITALS: BP 147/85
[2019-03-04 04:00] VITALS: BP 139/87
[2019-03-04] MEDS: CHLORDIAZEPOXIDE 25MG CAPSULE PO SCH (05:13)
[2019-03-04 08:00] VITALS: BP 144/74
[2019-03-04 08:16] LABS: CHLORIDE 109 mEq/L (98-107)
[2019-03-04 08:27] LABS: CREATINE KINASE 674 IU/L (39-308)
== END 2019-03-04 08:34 | disposition left against medical advice (07) | DRG 770 ==
LOC: ER 11:44 → 6WST 13:56 → EDBEDREQ 14:00 → ENRESERV 20:29
PROVIDERS: ADMIT Internal Medicine; ATTEND Internal Medicine
DX: F10.220 Alcohol dependence with intoxication, uncomplicated (principal); E87.8 Other disorders of electrolyte and fluid balance, not elsewhere classified; M62.82 Rhabdomyolysis; E44.0 Moderate protein-calorie malnutrition; E87.1 Hypo-osmolality and hyponatremia; D64.9 Anemia, unspecified; E11.9 Type 2 diabetes mellitus without complications; E87.6 Hypokalemia; F14.10 Cocaine abuse, uncomplicated; F17.210 Nicotine dependence, cigarettes, uncomplicated; Z60.2 Problems related to living alone; G40.909 Epilepsy, unspecified, not intractable, without status epilepticus; Y90.8 Blood alcohol level of 240 mg/100 ml or more; Z53.21 Procedure and treatment not carried out due to patient leaving prior to being seen by health care provider; Z68.20 Body mass index [BMI] 20.0-20.9, adult; Z88.8 Allergy status to other drugs, medicaments and biological substances; Z79.84 Long term (current) use of oral hypoglycemic drugs; Z79.899 Other long term (current) drug therapy; Z71.41 Alcohol abuse counseling and surveillance of alcoholic
CPT/HCPCS: 36415; 71045; 80048; 80165; 80305; 80320; 81003; 82550; 83735; 93005; 99285; J2060; J3411; J3480; J3490; J7030; J7070; G0480

== ENCOUNTER 2019-03-05 21:15 | Emergency (ER) | payer MEDICAID ==
[~2019-03-05] VITALS: Ht 177.8 cm; Wt 66.1 kg
[2019-03-05] MEDS ORDERED: SODIUM CHLORIDE 0.9% 1,000 ML IV ONE (21:58)
[2019-03-05 22:59] LABS: BASOPHILS % 1.2 % (0.0-2.0); EOSINOPHILS % 1.7 % (0.0-5.0); HEMATOCRIT. 32.9 % (42.0-52.0); HEMOGLOBIN. 10.9 g/dL (14.0-18.0); MEAN CORPUSCULAR HEMOGLOBIN 31.3 pg (28.0-32.0); MEAN CORPUSCULAR VOLUME 94.2 fL (80.0-94.0); MEAN PLATELET VOLUME 7.6 fl (7.4-10.4); MONOCYTES % 8.7 % (2.0-8.0); NEUTROPHILS % 62.4 % (40.0-76.0); PLATELET 253 x1000/uL (130-400); RED BLOOD CELL COUNT 3.49 mill/uL (4.7-6.1); RED CELL DISTRIBUTION WIDTH 16.3 % (11.6-14.6)
[2019-03-05 23:06] LABS: CHLORIDE 113 mEq/L (98-107)
[2019-03-05 23:09] LABS: ETHANOL BLOOD 17 mg/dL
[2019-03-05 23:14] LABS: CREATINE KINASE 817 IU/L (39-308)
[2019-03-05 23:17] LABS: CREATINE KINASE MB FRACTION 9.4 ng/mL (0.5-3.6)
[2019-03-06 00:54] LABS: *BENZODIAZEPINES SCREEN URINE PRESUMTIVE POSITIVE (NEGATIVE); *COCAINE SCREEN URINE PRESUMTIVE POSITIVE (NEGATIVE); METHADONE URINE SCREEN NEGATIVE (NEGATIVE)
[2019-03-06 00:55] LABS: *AMPHETAMINES SCREEN URINE NEGATIVE (NEGATIVE); *BARBITURATES SCREEN URINE NEGATIVE (NEGATIVE); CANNABINOID URINE SCREEN NEGATIVE (NEGATIVE); OPIATES URINE SCREEN PRESUMTIVE POSITIVE (NEGATIVE)
[2019-03-06 00:59] LABS: PHENCYCLIDINE URINE SCREEN PRESUMTIVE POSITIVE (NEGATIVE)
[2019-03-06] MEDS ORDERED: SODIUM CHLORIDE 0.9% 1,000 ML IV ONE (01:02)
[2019-03-06 06:51] VITALS: BP 112/68
== END 2019-03-06 06:51 | disposition home or self-care (01) ==
LOC: ER 21:15
DX: T40.5X1A Poisoning by cocaine, accidental (unintentional), initial encounter (principal); G92 Toxic encephalopathy; M62.82 Rhabdomyolysis; G40.909 Epilepsy, unspecified, not intractable, without status epilepticus; F16.10 Hallucinogen abuse, uncomplicated; F10.229 Alcohol dependence with intoxication, unspecified; Y90.0 Blood alcohol level of less than 20 mg/100 ml; F17.210 Nicotine dependence, cigarettes, uncomplicated; Z88.8 Allergy status to other drugs, medicaments and biological substances; Z87.19 Personal history of other diseases of the digestive system; Y92.018 Other place in single-family (private) house as the place of occurrence of the external cause
CPT/HCPCS: 36415; 80053; 80305; 80320; 82550; 82553; 83880; 84443; 84484; 85025; 93005; 99284; J7030; Z7610; G0480

== ENCOUNTER 2019-03-08 17:00 | Emergency (ER) | payer MEDICAID ==
[~2019-03-08] VITALS: Ht 180.3 cm; Wt 73.0 kg
[2019-03-08] MEDS ORDERED: ONDANSETRON HCL 4MG/2ML INJ IV STA (18:13)
[2019-03-08] MEDS ORDERED: SODIUM CHLORIDE 0.9% 1,000 ML IV ONE (18:13)
[2019-03-08] MEDS ORDERED: KETOROLAC 15MG/ML VIAL IV ONE (19:00)
[2019-03-08] MEDS ORDERED: QUETIAPINE FUMARATE 25MG TABLET PO SCH (19:00)
[2019-03-08 19:05] LABS: BASOPHILS % 0.2 % (0.0-2.0); EOSINOPHILS % 1.7 % (0.0-5.0); HEMATOCRIT. 32.7 % (42.0-52.0); HEMOGLOBIN. 10.7 g/dL (14.0-18.0); LYMPHOCYTES % 33.3 % (20.0-50.0); MEAN CORPUSCULAR HEMOGLOBIN 30.7 pg (28.0-32.0); MEAN CORPUSCULAR VOLUME 94.3 fL (80.0-94.0); MEAN PLATELET VOLUME 7.4 fl (7.4-10.4); MONOCYTES % 7.6 % (2.0-8.0); NEUTROPHILS % 57.2 % (40.0-76.0); PLATELET 287 x1000/uL (130-400); RED BLOOD CELL COUNT 3.47 mill/uL (4.7-6.1); RED CELL DISTRIBUTION WIDTH 16.9 % (11.6-14.6)
[2019-03-08 19:16] LABS: CHLORIDE 115 mEq/L (98-107)
[2019-03-08 19:22] LABS: ETHANOL BLOOD 167 mg/dL
[2019-03-08 19:54] LABS: CLARITY URINE CLEAR (CLEAR); COLOR URINE YELLOW (YELLOW); KETONES URINE NEGATIVE (NEGATIVE); LEUKOCYTE ESTERASE URINE NEGATIVE (NEGATIVE); NITRITE URINE NEGATIVE (NEGATIVE); OCCULT BLOOD URINE NEGATIVE (NEGATIVE); PH URINE 5.5 (4.5-8.0); PROTEIN URINE NEGATIVE (NEGATIVE); UROBILINOGEN URINE 0.2 E.U./dL (0.2-1.0)
[2019-03-08 20:05] LABS: *AMPHETAMINES SCREEN URINE NEGATIVE (NEGATIVE); *BARBITURATES SCREEN URINE NEGATIVE (NEGATIVE); *BENZODIAZEPINES SCREEN URINE PRESUMTIVE POSITIVE (NEGATIVE)
[2019-03-08 20:06] LABS: *COCAINE SCREEN URINE PRESUMTIVE POSITIVE (NEGATIVE); CANNABINOID URINE SCREEN NEGATIVE (NEGATIVE); METHADONE URINE SCREEN NEGATIVE (NEGATIVE); OPIATES URINE SCREEN PRESUMTIVE POSITIVE (NEGATIVE); PHENCYCLIDINE URINE SCREEN PRESUMTIVE POSITIVE (NEGATIVE)
[2019-03-09] MEDS ORDERED: POTASSIUM CHLORIDE 20MEQ TABLET SR PO SCH (01:00)
[2019-03-09 05:00] VITALS: BP 122/86
== END 2019-03-09 07:30 | disposition left against medical advice (07) ==
LOC: ER 17:00
DX: F10.129 Alcohol abuse with intoxication, unspecified (principal); F19.90 Other psychoactive substance use, unspecified, uncomplicated; G40.909 Epilepsy, unspecified, not intractable, without status epilepticus; Y90.9 Presence of alcohol in blood, level not specified; Z79.899 Other long term (current) drug therapy; Z88.1 Allergy status to other antibiotic agents; Z88.8 Allergy status to other drugs, medicaments and biological substances; Z59.0 Homelessness
CPT/HCPCS: 36415; 80053; 80305; 80320; 81003; 85025; 96374; 96375; 99283; J1885; J2405; J7030; Z7610; G0480

== ENCOUNTER 2019-03-09 11:02 | Emergency (ER) | payer MEDICAID ==
[~2019-03-09] VITALS: Ht 182.9 cm; Wt 82.0 kg
[2019-03-09] MEDS ORDERED: SODIUM CHLORIDE 0.9% 1,000 ML IV ONE (11:21)
[2019-03-09] MEDS ORDERED: ONDANSETRON HCL 4MG/2ML INJ IV STA (11:21)
[2019-03-09] MEDS ORDERED: LORAZEPAM 2MG/ML CPJ IV ONE (11:45)
[2019-03-09 12:13] LABS: BASOPHILS % 1.4 % (0.0-2.0); EOSINOPHILS % 1.2 % (0.0-5.0); HEMATOCRIT. 34.4 % (42.0-52.0); HEMOGLOBIN. 11.5 g/dL (14.0-18.0); LYMPHOCYTES % 31.7 % (20.0-50.0); MEAN CORPUSCULAR HEMOGLOBIN 31.9 pg (28.0-32.0); MEAN CORPUSCULAR VOLUME 95.4 fL (80.0-94.0); MEAN PLATELET VOLUME 7.7 fl (7.4-10.4); MONOCYTES % 9.3 % (2.0-8.0); NEUTROPHILS % 56.4 % (40.0-76.0); PLATELET 307 x1000/uL (130-400); RED BLOOD CELL COUNT 3.61 mill/uL (4.7-6.1); RED CELL DISTRIBUTION WIDTH 16.9 % (11.6-14.6)
[2019-03-09 12:20] LABS: CHLORIDE 116 mEq/L (98-107)
[2019-03-09 12:26] LABS: ETHANOL BLOOD 253 mg/dL
[2019-03-09 12:30] LABS: CREATINE KINASE 446 IU/L (39-308)
[2019-03-09 12:35] LABS: CARBAMAZEPINE < 0.5 ug/mL (4-12); PHENOBARBITAL < 2.1 ug/mL (15.0-40.0)
[2019-03-09 14:00] VITALS: BP 142/97
[2019-03-09] MEDS ORDERED: IBUPROFEN 400MG TABLET PO ONE (14:00)
[2019-03-09 14:21] LABS: CLARITY URINE CLEAR (CLEAR); KETONES URINE NEGATIVE (NEGATIVE); LEUKOCYTE ESTERASE URINE NEGATIVE (NEGATIVE); NITRITE URINE NEGATIVE (NEGATIVE); OCCULT BLOOD URINE NEGATIVE (NEGATIVE); PROTEIN URINE NEGATIVE (NEGATIVE); SPECIFIC GRAVITY URINE 1.004 (1.005-1.030); UROBILINOGEN URINE 0.2 E.U./dL (0.2-1.0)
[2019-03-09 14:22] LABS: COLOR URINE PALE YELLOW (YELLOW)
[2019-03-09 14:30] LABS: CANNABINOID URINE SCREEN NEGATIVE (NEGATIVE); PHENCYCLIDINE URINE SCREEN PRESUMTIVE POSITIVE (NEGATIVE)
[2019-03-09 14:31] LABS: *AMPHETAMINES SCREEN URINE NEGATIVE (NEGATIVE); *BARBITURATES SCREEN URINE NEGATIVE (NEGATIVE); *BENZODIAZEPINES SCREEN URINE PRESUMTIVE POSITIVE (NEGATIVE); *COCAINE SCREEN URINE PRESUMTIVE POSITIVE (NEGATIVE); METHADONE URINE SCREEN NEGATIVE (NEGATIVE); OPIATES URINE SCREEN PRESUMTIVE POSITIVE (NEGATIVE)
== END 2019-03-09 15:15 | disposition home or self-care (01) ==
LOC: ER 12:14
DX: F10.229 Alcohol dependence with intoxication, unspecified (principal); R41.82 Altered mental status, unspecified; G40.909 Epilepsy, unspecified, not intractable, without status epilepticus; R11.10 Vomiting, unspecified; Z79.899 Other long term (current) drug therapy; Z88.2 Allergy status to sulfonamides; Z88.1 Allergy status to other antibiotic agents; Y90.8 Blood alcohol level of 240 mg/100 ml or more; F11.10 Opioid abuse, uncomplicated
CPT/HCPCS: 36415; 70450; 71045; 80053; 80156; 80165; 80184; 80185; 80305; 80320; 81003; 82550; 82962; 84484; 85025; 96361; 96374; 96375; 99284; J2060; J2405; J7030; G0480

== ENCOUNTER 2019-03-09 18:05 | Emergency (ER) | payer MEDICAID ==
[~2019-03-09] VITALS: Ht 175.3 cm; Wt 73.0 kg
[2019-03-09] MEDS ORDERED: SODIUM CHLORIDE 0.9% 1,000 ML IV ONE (18:28)
[2019-03-09 19:04] LABS: CLARITY URINE CLEAR (CLEAR); COLOR URINE YELLOW (YELLOW); KETONES URINE NEGATIVE (NEGATIVE); LEUKOCYTE ESTERASE URINE NEGATIVE (NEGATIVE); NITRITE URINE NEGATIVE (NEGATIVE); OCCULT BLOOD URINE NEGATIVE (NEGATIVE); PROTEIN URINE NEGATIVE (NEGATIVE); SPECIFIC GRAVITY URINE 1.005 (1.005-1.030); UROBILINOGEN URINE 0.2 E.U./dL (0.2-1.0)
[2019-03-09 19:20] LABS: *AMPHETAMINES SCREEN URINE NEGATIVE (NEGATIVE); *BARBITURATES SCREEN URINE NEGATIVE (NEGATIVE); *BENZODIAZEPINES SCREEN URINE PRESUMTIVE POSITIVE (NEGATIVE); *COCAINE SCREEN URINE NEGATIVE (NEGATIVE)
[2019-03-09 19:21] LABS: CANNABINOID URINE SCREEN NEGATIVE (NEGATIVE); METHADONE URINE SCREEN NEGATIVE (NEGATIVE); OPIATES URINE SCREEN PRESUMTIVE POSITIVE (NEGATIVE); PHENCYCLIDINE URINE SCREEN PRESUMTIVE POSITIVE (NEGATIVE)
[2019-03-09 21:11] LABS: BASOPHILS % 0.9 % (0.0-2.0); EOSINOPHILS % 2.7 % (0.0-5.0); HEMATOCRIT. 36.4 % (42.0-52.0); HEMOGLOBIN. 11.9 g/dL (14.0-18.0); LYMPHOCYTES % 39.5 % (20.0-50.0); MEAN CORPUSCULAR HEMOGLOBIN 31.5 pg (28.0-32.0); MEAN CORPUSCULAR VOLUME 96.3 fL (80.0-94.0); MEAN PLATELET VOLUME 7.5 fl (7.4-10.4); MONOCYTES % 10.4 % (2.0-8.0); NEUTROPHILS % 46.5 % (40.0-76.0); PLATELET 285 x1000/uL (130-400); RED BLOOD CELL COUNT 3.78 mill/uL (4.7-6.1)
[2019-03-09 21:18] LABS: CHLORIDE 120 mEq/L (98-107)
[2019-03-09 21:22] LABS: ETHANOL BLOOD 194 mg/dL
[2019-03-10 05:30] VITALS: BP 138/92
== END 2019-03-10 07:09 | disposition left against medical advice (07) ==
LOC: ER 18:05
DX: F10.129 Alcohol abuse with intoxication, unspecified (principal); Y90.6 Blood alcohol level of 120-199 mg/100 ml; F19.10 Other psychoactive substance abuse, uncomplicated; F11.10 Opioid abuse, uncomplicated; F15.10 Other stimulant abuse, uncomplicated; E87.1 Hypo-osmolality and hyponatremia; D53.9 Nutritional anemia, unspecified; R03.0 Elevated blood-pressure reading, without diagnosis of hypertension
CPT/HCPCS: 36415; 70450; 80053; 80305; 80320; 81003; 85025; 96360; 99284; J7030; G0480

== ENCOUNTER 2019-03-10 22:09 | Emergency (ER) | payer MEDICAID ==
[~2019-03-10] VITALS: Ht 177.8 cm; Wt 73.0 kg
[2019-03-11 02:38] VITALS: BP 99/63
== END 2019-03-11 05:14 | disposition left against medical advice (07) ==
LOC: ER 22:09
DX: F10.229 Alcohol dependence with intoxication, unspecified (principal); Y90.0 Blood alcohol level of less than 20 mg/100 ml; Z79.899 Other long term (current) drug therapy; Z88.2 Allergy status to sulfonamides; Z88.1 Allergy status to other antibiotic agents; Z53.21 Procedure and treatment not carried out due to patient leaving prior to being seen by health care provider

== ENCOUNTER 2019-03-11 07:34 | Emergency (ER) | payer MEDICAID ==
[~2019-03-11] VITALS: Ht 180.3 cm; Wt 68.0 kg
[2019-03-11 10:26] VITALS: BP 148/90
== END 2019-03-11 11:12 | disposition home or self-care (01) ==
LOC: ER 07:34
DX: G40.909 Epilepsy, unspecified, not intractable, without status epilepticus (principal); F10.229 Alcohol dependence with intoxication, unspecified; F17.210 Nicotine dependence, cigarettes, uncomplicated; Z79.899 Other long term (current) drug therapy; Z88.2 Allergy status to sulfonamides; Z88.1 Allergy status to other antibiotic agents; Y90.8 Blood alcohol level of 240 mg/100 ml or more
CPT/HCPCS: 99283; 99406

== ENCOUNTER 2019-03-12 13:58 | Emergency (ER) | payer MEDICAID ==
[~2019-03-12] VITALS: Ht 167.6 cm; Wt 68.0 kg
[2019-03-12 16:34] VITALS: BP 127/68
[2019-03-12] MEDS ORDERED: CLONAZEPAM 1MG TABLET PO ONE (19:30)
== END 2019-03-12 16:34 | disposition home or self-care (01) ==
LOC: ER 14:20
DX: F10.229 Alcohol dependence with intoxication, unspecified (principal); E86.0 Dehydration; K21.9 Gastro-esophageal reflux disease without esophagitis; G40.909 Epilepsy, unspecified, not intractable, without status epilepticus; F17.210 Nicotine dependence, cigarettes, uncomplicated; Y90.9 Presence of alcohol in blood, level not specified; Z88.8 Allergy status to other drugs, medicaments and biological substances
CPT/HCPCS: 99283

== ENCOUNTER 2019-03-12 17:25 | Emergency (ER) | payer MEDICAID ==
[~2019-03-12] VITALS: Ht 172.7 cm; Wt 80.0 kg
[2019-03-12 20:00] VITALS: BP 125/84
[2019-03-12] MEDS ORDERED: CLONAZEPAM 1MG TABLET PO ONE (20:00)
== END 2019-03-12 20:08 | disposition home or self-care (01) ==
LOC: ER 17:25
DX: F10.229 Alcohol dependence with intoxication, unspecified (principal); F16.10 Hallucinogen abuse, uncomplicated; F14.10 Cocaine abuse, uncomplicated; K21.9 Gastro-esophageal reflux disease without esophagitis; G40.909 Epilepsy, unspecified, not intractable, without status epilepticus; Z88.8 Allergy status to other drugs, medicaments and biological substances; Y90.9 Presence of alcohol in blood, level not specified
CPT/HCPCS: 99283

== ENCOUNTER 2019-03-12 20:50 | Emergency (ER) | payer MEDICAID ==
[~2019-03-12] VITALS: Ht 185.4 cm; Wt 80.0 kg
[2019-03-12] MEDS ORDERED: LORAZEPAM 2MG/ML CPJ IV STA (23:59)
[2019-03-12] MEDS ORDERED: ONDANSETRON HCL 4MG/2ML INJ IV STA (23:59)
[2019-03-12] MEDS ORDERED: SODIUM CHLORIDE 0.9% 1,000 ML IV ONE (23:59)
[2019-03-13 00:47] LABS: BASOPHILS % 0.8 % (0.0-2.0); EOSINOPHILS % 0.9 % (0.0-5.0); HEMATOCRIT. 35.9 % (42.0-52.0); HEMOGLOBIN. 11.9 g/dL (14.0-18.0); LYMPHOCYTES % 38.8 % (20.0-50.0); MEAN CORPUSCULAR HEMOGLOBIN 31.2 pg (28.0-32.0); MEAN CORPUSCULAR VOLUME 94.5 fL (80.0-94.0); MEAN PLATELET VOLUME 6.9 fl (7.4-10.4); NEUTROPHILS % 49.5 % (40.0-76.0); PLATELET 307 x1000/uL (130-400); RED CELL DISTRIBUTION WIDTH 17.5 % (11.6-14.6)
[2019-03-13 01:01] LABS: CHLORIDE 112 mEq/L (98-107)
[2019-03-13 01:05] LABS: ETHANOL BLOOD 171 mg/dL
[2019-03-13 01:09] LABS: CREATINE KINASE 288 IU/L (39-308)
[2019-03-13 02:26] LABS: *AMPHETAMINES SCREEN URINE PRESUMTIVE POSITIVE (NEGATIVE); *BARBITURATES SCREEN URINE NEGATIVE (NEGATIVE); *BENZODIAZEPINES SCREEN URINE PRESUMTIVE POSITIVE (NEGATIVE); *COCAINE SCREEN URINE NEGATIVE (NEGATIVE); METHADONE URINE SCREEN NEGATIVE (NEGATIVE); OPIATES URINE SCREEN NEGATIVE (NEGATIVE)
[2019-03-13 02:27] LABS: CANNABINOID URINE SCREEN NEGATIVE (NEGATIVE); PHENCYCLIDINE URINE SCREEN PRESUMTIVE POSITIVE (NEGATIVE)
[2019-03-13] MEDS ORDERED: SODIUM CHLORIDE 0.9% 1,000 ML IV ONE (06:36)
[2019-03-13] MEDS ORDERED: CHLORDIAZEPOXIDE 25MG CAPSULE PO ONE (06:45)
[2019-03-13] MEDS ORDERED: LORAZEPAM 2MG/ML CPJ IV ONE (06:45)
[2019-03-13 07:59] VITALS: BP 143/53
[2019-03-13] MEDS ORDERED: SODIUM CHLORIDE 0.9% 1,000 ML IV SCH (09:49)
[2019-03-13] MEDS ORDERED: IPRATROPIUM/ALBUTEROL 0.5-3(2.5)MG/3ML NEB HHN PRN (10:00)
[2019-03-13] MEDS ORDERED: LORAZEPAM 2MG/ML CPJ IV PRN (10:00)
[2019-03-13] MEDS ORDERED: DIPHENHYDRAMINE 50MG/ML VIAL IV PRN (10:00)
[2019-03-13] MEDS ORDERED: ACETAMINOPHEN 325MG TABLET PO PRN (10:00)
[2019-03-13] MEDS ORDERED: ONDANSETRON HCL 4MG/2ML INJ IV PRN (10:00)
[2019-03-13 10:25] LABS: PHOSPHORUS 4.1 mg/dL (2.5-4.9)
[2019-03-13] MEDS ORDERED: CHLORDIAZEPOXIDE 25MG CAPSULE PO SCH (14:00)
== END 2019-03-13 08:40 | disposition left against medical advice (07) ==
LOC: ER 20:50 → EDBEDREQ 03-13 07:48 → ER 03-13 08:40 → CANBEDREQ 03-13 09:48
DX: T51.0X1A Toxic effect of ethanol, accidental (unintentional), initial encounter (principal); G92 Toxic encephalopathy; R00.0 Tachycardia, unspecified; G40.909 Epilepsy, unspecified, not intractable, without status epilepticus; Z88.8 Allergy status to other drugs, medicaments and biological substances; Y92.488 Other paved roadways as the place of occurrence of the external cause
CPT/HCPCS: 36415; 80053; 80305; 80320; 82140; 82550; 83690; 83735; 84100; 84484; 85025; 93005; 96361; 96374; 96375; 99284; J2060; J2405; J7030; Z7610; G0480

== ENCOUNTER 2019-03-14 02:33 | Emergency (ER) | payer MEDICAID ==
[~2019-03-14] VITALS: Ht 170.2 cm; Wt 75.0 kg
[2019-03-14] MEDS ORDERED: SODIUM CHLORIDE 0.9% 500 ML IV ONE (03:00)
[2019-03-14 04:00] VITALS: BP 129/75
== END 2019-03-14 04:30 | disposition home or self-care (01) ==
LOC: ER 02:33
DX: R56.9 Unspecified convulsions (principal); Z79.899 Other long term (current) drug therapy; Z88.1 Allergy status to other antibiotic agents; Z88.8 Allergy status to other drugs, medicaments and biological substances
CPT/HCPCS: 99283; Z7610

== ENCOUNTER 2019-03-14 23:49 | Emergency (ER) | payer MEDICAID ==
[~2019-03-14] VITALS: Ht 172.7 cm; Wt 73.0 kg
[2019-03-15 02:10] LABS: CHLORIDE 113 mEq/L (98-107)
[2019-03-15 02:14] LABS: ETHANOL BLOOD 235 mg/dL
[2019-03-15 02:17] VITALS: BP 146/89
[2019-03-15 02:19] LABS: BASOPHILS % 1.1 % (0.0-2.0); HEMATOCRIT. 38.8 % (42.0-52.0); HEMOGLOBIN. 12.6 g/dL (14.0-18.0); LYMPHOCYTES % 68.2 % (20.0-50.0); MEAN CORPUSCULAR HEMOGLOBIN 31.1 pg (28.0-32.0); MEAN CORPUSCULAR VOLUME 95.5 fL (80.0-94.0); MONOCYTES % 3.1 % (2.0-8.0); NEUTROPHILS % 26.6 % (40.0-76.0); RED BLOOD CELL COUNT 4.06 mill/uL (4.7-6.1); RED CELL DISTRIBUTION WIDTH 17.1 % (11.6-14.6)
== END 2019-03-15 02:19 | disposition left against medical advice (07) ==
LOC: ER 23:49
DX: F10.229 Alcohol dependence with intoxication, unspecified (principal); G40.909 Epilepsy, unspecified, not intractable, without status epilepticus; F17.210 Nicotine dependence, cigarettes, uncomplicated; Y90.8 Blood alcohol level of 240 mg/100 ml or more; Z88.8 Allergy status to other drugs, medicaments and biological substances
CPT/HCPCS: 36415; 80320; 84484; 99283; G0480

== ENCOUNTER 2019-08-01 05:33 | Emergency (ER) | payer MEDICAID ==
[~2019-08-01] VITALS: Ht 177.8 cm; Wt 69.0 kg
[2019-08-01] MEDS ORDERED: KETOROLAC 30MG/ML VIAL IV STA (06:36)
[2019-08-01 07:30] VITALS: BP 97/59
[2019-08-01] MEDS ORDERED: CEFTRIAXONE 1 G PREMIX 50 ML IV ONE (07:30)
== END 2019-08-01 08:45 | disposition home or self-care (01) ==
LOC: ER 05:33
DX: L02.211 Cutaneous abscess of abdominal wall (principal); F10.20 Alcohol dependence, uncomplicated; F17.210 Nicotine dependence, cigarettes, uncomplicated; Z79.899 Other long term (current) drug therapy; Z88.2 Allergy status to sulfonamides; Z88.1 Allergy status to other antibiotic agents; Z88.8 Allergy status to other drugs, medicaments and biological substances; Y90.9 Presence of alcohol in blood, level not specified
CPT/HCPCS: 96365; 96375; 99284; 99406; J0696; J1885

== ENCOUNTER 2019-08-14 06:30 | Emergency (ER) | payer MEDICAID ==
[~2019-08-14] VITALS: Ht 172.7 cm; Wt 75.0 kg
[2019-08-14 06:34] VITALS: BP 116/80
[2019-08-14] MEDS ORDERED: CHLORDIAZEPOXIDE 25MG CAPSULE PO ONE (07:15)
[2019-08-14] MEDS ORDERED: CLONAZEPAM 1MG TABLET PO ONE (07:15)
== END 2019-08-14 07:46 | disposition home or self-care (01) ==
LOC: ER 06:30
DX: Z76.0 Encounter for issue of repeat prescription (principal); G40.909 Epilepsy, unspecified, not intractable, without status epilepticus; Z88.8 Allergy status to other drugs, medicaments and biological substances; F10.21 Alcohol dependence, in remission
CPT/HCPCS: 99283

== ENCOUNTER 2019-08-19 22:19 | Emergency (ER) | payer MEDICAID ==
[~2019-08-19] VITALS: Ht 182.9 cm; Wt 79.0 kg
[2019-08-20] MEDS ORDERED: CLONAZEPAM 1MG TABLET PO ONE (03:00)
[2019-08-20 04:57] VITALS: BP 105/69
== END 2019-08-20 08:15 | disposition home or self-care (01) ==
LOC: ER 22:19
DX: G40.909 Epilepsy, unspecified, not intractable, without status epilepticus (principal); Z76.5 Malingerer [conscious simulation]; F10.239 Alcohol dependence with withdrawal, unspecified; Z91.14 Patient's other noncompliance with medication regimen; Z88.8 Allergy status to other drugs, medicaments and biological substances; Y90.9 Presence of alcohol in blood, level not specified
CPT/HCPCS: 99283

== ENCOUNTER 2019-08-21 03:43 | Emergency (ER) | payer MEDICAID ==
[~2019-08-21] VITALS: Ht 185.4 cm; Wt 71.0 kg
[2019-08-21] MEDS ORDERED: ACETAMINOPHEN 325MG TABLET PO STA (06:05)
[2019-08-21] MEDS ORDERED: CLONAZEPAM 1MG TABLET PO ONE (06:15)
[2019-08-21 06:41] VITALS: BP 141/74
== END 2019-08-21 07:00 | disposition left against medical advice (07) ==
LOC: ER 03:43
DX: G40.909 Epilepsy, unspecified, not intractable, without status epilepticus (principal); F10.10 Alcohol abuse, uncomplicated; Y90.9 Presence of alcohol in blood, level not specified; Z91.14 Patient's other noncompliance with medication regimen; Z88.8 Allergy status to other drugs, medicaments and biological substances
CPT/HCPCS: 99283

== ENCOUNTER 2019-08-24 03:06 | Emergency (ER) | payer MEDICAID ==
[~2019-08-24] VITALS: Ht 175.3 cm; Wt 73.0 kg
[2019-08-24] MEDS ORDERED: CLONAZEPAM 1MG TABLET PO ONE ×2 (03:45→08:45)
[2019-08-24 09:00] VITALS: BP 111/68
== END 2019-08-24 09:05 | disposition home or self-care (01) ==
LOC: ER 03:06
DX: R56.9 Unspecified convulsions (principal); Z76.5 Malingerer [conscious simulation]; F10.20 Alcohol dependence, uncomplicated; Y90.0 Blood alcohol level of less than 20 mg/100 ml; Z79.899 Other long term (current) drug therapy; Z88.8 Allergy status to other drugs, medicaments and biological substances; Z88.1 Allergy status to other antibiotic agents; Z76.0 Encounter for issue of repeat prescription
CPT/HCPCS: 99283

== ENCOUNTER 2019-09-10 22:59 | Emergency (ER) | payer MEDICAID ==
[~2019-09-10] VITALS: Ht 177.8 cm; Wt 73.0 kg
[2019-09-10 23:40] LABS: CHLORIDE 111 mEq/L (98-107)
[2019-09-10 23:44] LABS: ETHANOL BLOOD 67 mg/dL
[2019-09-10 23:48] LABS: BASOPHILS % 0.7 % (0.0-2.0); EOSINOPHILS % 1.7 % (0.0-5.0); HEMATOCRIT. 37.7 % (42.0-52.0); HEMOGLOBIN. 12.7 g/dL (14.0-18.0); LYMPHOCYTES % 34.5 % (20.0-50.0); MEAN CORPUSCULAR HEMOGLOBIN 31.7 pg (28.0-32.0); MEAN CORPUSCULAR VOLUME 94.3 fL (80.0-94.0); MEAN PLATELET VOLUME 8.3 fl (7.4-10.4); MONOCYTES % 8.9 % (2.0-8.0); NEUTROPHILS % 54.2 % (40.0-76.0); PLATELET 233 x1000/uL (130-400); RED CELL DISTRIBUTION WIDTH 14.5 % (11.6-14.6)
[2019-09-10 23:53] LABS: CLARITY URINE CLEAR (CLEAR); COLOR URINE DARK YELLOW (YELLOW); KETONES URINE TRACE (NEGATIVE); LEUKOCYTE ESTERASE URINE 3+ (NEGATIVE); NITRITE URINE NEGATIVE (NEGATIVE); OCCULT BLOOD URINE 1+ (NEGATIVE); PROTEIN URINE NEGATIVE (NEGATIVE)
[2019-09-11 00:11] LABS: *AMPHETAMINES SCREEN URINE NEGATIVE (NEGATIVE); *BARBITURATES SCREEN URINE NEGATIVE (NEGATIVE); *BENZODIAZEPINES SCREEN URINE PRESUMTIVE POSITIVE (NEGATIVE); *COCAINE SCREEN URINE PRESUMTIVE POSITIVE (NEGATIVE); OPIATES URINE SCREEN PRESUMTIVE POSITIVE (NEGATIVE)
[2019-09-11 00:12] LABS: CANNABINOID URINE SCREEN PRESUMTIVE POSITIVE (NEGATIVE); METHADONE URINE SCREEN NEGATIVE (NEGATIVE); PHENCYCLIDINE URINE SCREEN PRESUMTIVE POSITIVE (NEGATIVE)
[2019-09-11] MEDS ORDERED: CEPHALEXIN 250MG CAPSULE PO NR (03:00)
[2019-09-11 05:37] VITALS: BP 129/79
== END 2019-09-11 07:00 | disposition home or self-care (01) ==
LOC: ER 22:59
DX: F16.188 Hallucinogen abuse with other hallucinogen-induced disorder (principal); F14.188 Cocaine abuse with other cocaine-induced disorder; F12.90 Cannabis use, unspecified, uncomplicated; R53.1 Weakness; G40.909 Epilepsy, unspecified, not intractable, without status epilepticus; Z88.8 Allergy status to other drugs, medicaments and biological substances; Z79.899 Other long term (current) drug therapy
CPT/HCPCS: 36415; 80053; 80305; 80320; 81003; 82962; 85025; 99285; G0480

== ENCOUNTER 2019-09-14 00:35 | Emergency (ER) | payer MEDICAID ==
[~2019-09-14] VITALS: Ht 172.7 cm; Wt 65.0 kg
[2019-09-14] MEDS ORDERED: KETOROLAC 60MG/2ML VIAL IM ONE (01:15)
[2019-09-14] MEDS ORDERED: CHLORDIAZEPOXIDE 25MG CAPSULE PO ONE (01:30)
[2019-09-14 07:45] VITALS: BP 129/81
== END 2019-09-14 10:57 | disposition home or self-care (01) ==
LOC: ER 00:35
DX: G89.29 Other chronic pain (principal); M54.5 Low back pain; F10.20 Alcohol dependence, uncomplicated; Y90.0 Blood alcohol level of less than 20 mg/100 ml; Z88.4 Allergy status to anesthetic agent; Z79.899 Other long term (current) drug therapy; Z88.8 Allergy status to other drugs, medicaments and biological substances; F16.10 Hallucinogen abuse, uncomplicated
CPT/HCPCS: 96372; 99283; J1885

== ENCOUNTER 2019-09-23 18:17 | Emergency (ER) | payer MEDICAID ==
[~2019-09-23] VITALS: Ht 177.8 cm; Wt 68.0 kg
[2019-09-23] MEDS ORDERED: SODIUM CHLORIDE 0.9% 1,000 ML IV ONE (18:39)
[2019-09-23] MEDS ORDERED: CEFTRIAXONE 1 G PREMIX 50 ML IV ONE (18:45)
[2019-09-23] MEDS ORDERED: AZITHROMYCIN 500 MG TABLET PO ONE (18:45)
[2019-09-23] MEDS ORDERED: LORAZEPAM 2MG/ML CPJ IV ONE (18:45)
[2019-09-23 19:38] LABS: BASOPHILS % 0.8 % (0.0-2.0); EOSINOPHILS % 1.2 % (0.0-5.0); HEMATOCRIT. 37.4 % (42.0-52.0); HEMOGLOBIN. 12.5 g/dL (14.0-18.0); LYMPHOCYTES % 21.4 % (20.0-50.0); MEAN CORPUSCULAR HEMOGLOBIN 31.9 pg (28.0-32.0); MEAN CORPUSCULAR VOLUME 95.5 fL (80.0-94.0); MEAN PLATELET VOLUME 7.9 fl (7.4-10.4); MONOCYTES % 10.1 % (2.0-8.0); NEUTROPHILS % 66.5 % (40.0-76.0); PLATELET 219 x1000/uL (130-400); RED BLOOD CELL COUNT 3.92 mill/uL (4.7-6.1)
[2019-09-23 19:42] LABS: CHLORIDE 109 mEq/L (98-107)
[2019-09-23 19:47] LABS: ETHANOL BLOOD 10 mg/dL
[2019-09-23 20:44] LABS: CLARITY URINE TURBID (CLEAR); COLOR URINE YELLOW (YELLOW); KETONES URINE NEGATIVE (NEGATIVE); LEUKOCYTE ESTERASE URINE 3+ (NEGATIVE); NITRITE URINE NEGATIVE (NEGATIVE); OCCULT BLOOD URINE NEGATIVE (NEGATIVE); PH URINE 5.5 (4.5-8.0); PROTEIN URINE TRACE (NEGATIVE); SPECIFIC GRAVITY URINE 1.022 (1.005-1.030); UROBILINOGEN URINE 0.2 E.U./dL (0.2-1.0)
[2019-09-23 20:59] LABS: *AMPHETAMINES SCREEN URINE NEGATIVE (NEGATIVE); *BARBITURATES SCREEN URINE NEGATIVE (NEGATIVE)
[2019-09-23 21:00] LABS: *BENZODIAZEPINES SCREEN URINE PRESUMTIVE POSITIVE (NEGATIVE); *COCAINE SCREEN URINE PRESUMTIVE POSITIVE (NEGATIVE); CANNABINOID URINE SCREEN NEGATIVE (NEGATIVE); METHADONE URINE SCREEN NEGATIVE (NEGATIVE); OPIATES URINE SCREEN PRESUMTIVE POSITIVE (NEGATIVE); PHENCYCLIDINE URINE SCREEN PRESUMTIVE POSITIVE (NEGATIVE)
[2019-09-23] MEDS ORDERED: FLUCONAZOLE 100MG TABLET PO ONE (23:15)
[2019-09-24] MEDS ORDERED: FLUCONAZOLE 150MG TABLET PO SCH
[2019-09-24 05:00] VITALS: BP 130/89
[2019-09-24] MEDS ORDERED: ACETAMINOPHEN 500MG TABLET PO ONE (06:15)
== END 2019-09-24 07:00 | disposition home or self-care (01) ==
LOC: ER 18:17
DX: G40.909 Epilepsy, unspecified, not intractable, without status epilepticus (principal); B37.49 Other urogenital candidiasis; F16.10 Hallucinogen abuse, uncomplicated; F15.10 Other stimulant abuse, uncomplicated; F14.10 Cocaine abuse, uncomplicated; F11.10 Opioid abuse, uncomplicated; D64.9 Anemia, unspecified; F10.20 Alcohol dependence, uncomplicated; Y90.0 Blood alcohol level of less than 20 mg/100 ml; R03.0 Elevated blood-pressure reading, without diagnosis of hypertension; Z88.8 Allergy status to other drugs, medicaments and biological substances
CPT/HCPCS: 36415; 80053; 80305; 80320; 81003; 85025; 87086; 87106; 93005; 96365; 96366; 96375; 99285; J0696; J2060; J7030; G0480

== ENCOUNTER 2019-10-18 04:54 | Emergency (ER) | payer MEDICAID ==
[~2019-10-18] VITALS: Ht 172.7 cm; Wt 68.0 kg
[2019-10-18 05:14] VITALS: BP 140/78
== END 2019-10-18 06:20 | disposition left against medical advice (07) ==
LOC: ER 04:54
DX: Z53.21 Procedure and treatment not carried out due to patient leaving prior to being seen by health care provider (principal)

== ENCOUNTER 2019-10-21 23:47 | Emergency (ER) | payer MEDICAID ==
[~2019-10-21] VITALS: Ht 175.3 cm; Wt 82.0 kg
[2019-10-22 00:20] VITALS: BP 122/78
== END 2019-10-22 00:35 | disposition home or self-care (01) ==
LOC: ER 23:47
DX: G40.909 Epilepsy, unspecified, not intractable, without status epilepticus (principal); Z76.5 Malingerer [conscious simulation]; Z91.14 Patient's other noncompliance with medication regimen; Z88.8 Allergy status to other drugs, medicaments and biological substances
CPT/HCPCS: 99283

== ENCOUNTER 2019-10-29 16:17 | Emergency (ER) | payer MEDICAID ==
[~2019-10-29] VITALS: Ht 172.7 cm; Wt 78.0 kg
[2019-10-29] MEDS ORDERED: HALOPERIDOL LACTATE 5MG/ML VIAL IM ONE (18:15)
[2019-10-29 18:43] LABS: BASOPHILS % 0.6 % (0.0-2.0); EOSINOPHILS % 0.4 % (0.0-5.0); HEMATOCRIT. 41.8 % (42.0-52.0); HEMOGLOBIN. 14.3 g/dL (14.0-18.0); MEAN CORPUSCULAR HEMOGLOBIN 31.4 pg (28.0-32.0); MEAN CORPUSCULAR VOLUME 92.1 fL (80.0-94.0); MEAN PLATELET VOLUME 7.9 fl (7.4-10.4); MONOCYTES % 7.2 % (2.0-8.0); NEUTROPHILS % 70.8 % (40.0-76.0); PLATELET 249 x1000/uL (130-400); RED BLOOD CELL COUNT 4.54 mill/uL (4.7-6.1); RED CELL DISTRIBUTION WIDTH 14.1 % (11.6-14.6)
[2019-10-29 18:49] LABS: CHLORIDE 108 mEq/L (98-107)
[2019-10-29 18:54] LABS: ETHANOL BLOOD < 10 mg/dL
[2019-10-29 19:22] LABS: *AMPHETAMINES SCREEN URINE NEGATIVE (NEGATIVE); *BARBITURATES SCREEN URINE NEGATIVE (NEGATIVE)
[2019-10-29 19:23] LABS: *BENZODIAZEPINES SCREEN URINE PRESUMTIVE POSITIVE (NEGATIVE); *COCAINE SCREEN URINE PRESUMTIVE POSITIVE (NEGATIVE); CANNABINOID URINE SCREEN NEGATIVE (NEGATIVE); METHADONE URINE SCREEN NEGATIVE (NEGATIVE); OPIATES URINE SCREEN PRESUMTIVE POSITIVE (NEGATIVE); PHENCYCLIDINE URINE SCREEN PRESUMTIVE POSITIVE (NEGATIVE)
[2019-10-30 00:05] VITALS: BP 110/89
== END 2019-10-30 00:29 | disposition home or self-care (01) ==
LOC: ER 16:17
DX: F16.188 Hallucinogen abuse with other hallucinogen-induced disorder (principal); F14.188 Cocaine abuse with other cocaine-induced disorder; F15.188 Other stimulant abuse with other stimulant-induced disorder; F11.188 Opioid abuse with other opioid-induced disorder; R45.1 Restlessness and agitation; Z78.1 Physical restraint status; F17.210 Nicotine dependence, cigarettes, uncomplicated; Z71.6 Tobacco abuse counseling; Z79.899 Other long term (current) drug therapy; Z88.8 Allergy status to other drugs, medicaments and biological substances; F10.20 Alcohol dependence, uncomplicated; Y90.9 Presence of alcohol in blood, level not specified
CPT/HCPCS: 36415; 80053; 80305; 80320; 84484; 85025; 93005; 96372; 99285; 99406; J1630; G0480

== ENCOUNTER 2019-11-02 21:48 | Emergency (ER) | payer MEDICAID ==
[~2019-11-02] VITALS: Ht 175.3 cm; Wt 68.0 kg
[2019-11-02 23:23] LABS: BASOPHILS % 1.2 % (0.0-2.0); EOSINOPHILS % 1.6 % (0.0-5.0); HEMATOCRIT. 35.8 % (42.0-52.0); HEMOGLOBIN. 12.3 g/dL (14.0-18.0); LYMPHOCYTES % 23.9 % (20.0-50.0); MEAN CORPUSCULAR HEMOGLOBIN 31.9 pg (28.0-32.0); MEAN CORPUSCULAR VOLUME 93.1 fL (80.0-94.0); MEAN PLATELET VOLUME 7.5 fl (7.4-10.4); MONOCYTES % 9.5 % (2.0-8.0); NEUTROPHILS % 63.8 % (40.0-76.0); PLATELET 208 x1000/uL (130-400); RED BLOOD CELL COUNT 3.85 mill/uL (4.7-6.1); RED CELL DISTRIBUTION WIDTH 14.3 % (11.6-14.6)
[2019-11-02 23:29] LABS: CHLORIDE 107 mEq/L (98-107)
[2019-11-02 23:36] LABS: ETHANOL BLOOD 92 mg/dL
[2019-11-03 00:31] LABS: CLARITY URINE CLEAR (CLEAR); COLOR URINE DARK YELLOW (YELLOW); KETONES URINE TRACE (NEGATIVE); LEUKOCYTE ESTERASE URINE 1+ (NEGATIVE); NITRITE URINE NEGATIVE (NEGATIVE); OCCULT BLOOD URINE TRACE (NEGATIVE); PROTEIN URINE NEGATIVE (NEGATIVE); SPECIFIC GRAVITY URINE 1.022 (1.005-1.030)
[2019-11-03 00:42] LABS: *AMPHETAMINES SCREEN URINE NEGATIVE (NEGATIVE); *BARBITURATES SCREEN URINE NEGATIVE (NEGATIVE); *BENZODIAZEPINES SCREEN URINE PRESUMTIVE POSITIVE (NEGATIVE); *COCAINE SCREEN URINE PRESUMTIVE POSITIVE (NEGATIVE); METHADONE URINE SCREEN NEGATIVE (NEGATIVE); OPIATES URINE SCREEN PRESUMTIVE POSITIVE (NEGATIVE)
[2019-11-03 00:43] LABS: CANNABINOID URINE SCREEN NEGATIVE (NEGATIVE); PHENCYCLIDINE URINE SCREEN PRESUMTIVE POSITIVE (NEGATIVE)
[2019-11-03 02:42] VITALS: BP 114/68
== END 2019-11-03 02:43 | disposition home or self-care (01) ==
LOC: ER 21:48
DX: F14.10 Cocaine abuse, uncomplicated (principal); F16.10 Hallucinogen abuse, uncomplicated; F13.10 Sedative, hypnotic or anxiolytic abuse, uncomplicated; F15.10 Other stimulant abuse, uncomplicated; F11.10 Opioid abuse, uncomplicated; F12.10 Cannabis abuse, uncomplicated; F10.20 Alcohol dependence, uncomplicated; Y90.4 Blood alcohol level of 80-99 mg/100 ml; N39.0 Urinary tract infection, site not specified; R03.0 Elevated blood-pressure reading, without diagnosis of hypertension; D64.9 Anemia, unspecified; G40.909 Epilepsy, unspecified, not intractable, without status epilepticus; T73.0XXA Starvation, initial encounter; X58.XXXA Exposure to other specified factors, initial encounter; Y92.488 Other paved roadways as the place of occurrence of the external cause; Z59.0 Homelessness
CPT/HCPCS: 36415; 80053; 80305; 80320; 81003; 82962; 84484; 85025; 93005; 99284; G0480

== ENCOUNTER 2019-11-21 12:24 | Emergency (ER) | payer MEDICAID ==
[~2019-11-21] VITALS: Ht 175.3 cm; Wt 73.0 kg
[2019-11-21] MEDS ORDERED: SODIUM CHLORIDE 0.9% 1,000 ML IV ONE (13:56)
[2019-11-21 14:10] LABS: BASOPHILS % 1.5 % (0.0-2.0); HEMATOCRIT. 38.5 % (42.0-52.0); HEMOGLOBIN. 12.9 g/dL (14.0-18.0); LYMPHOCYTES % 28.4 % (20.0-50.0); MEAN CORPUSCULAR HEMOGLOBIN 30.9 pg (28.0-32.0); MEAN CORPUSCULAR VOLUME 91.7 fL (80.0-94.0); MEAN PLATELET VOLUME 8.8 fl (7.4-10.4); MONOCYTES % 6.1 % (2.0-8.0); PLATELET 274 x1000/uL (130-400); RED CELL DISTRIBUTION WIDTH 14.3 % (11.6-14.6)
[2019-11-21 14:18] LABS: CHLORIDE 112 mEq/L (98-107)
[2019-11-21 14:25] LABS: ETHANOL BLOOD 101 mg/dL
[2019-11-21 14:26] LABS: CREATINE KINASE 252 IU/L (39-308)
[2019-11-21 15:33] LABS: CLARITY URINE CLEAR (CLEAR); COLOR URINE YELLOW (YELLOW); KETONES URINE NEGATIVE (NEGATIVE); LEUKOCYTE ESTERASE URINE NEGATIVE (NEGATIVE); NITRITE URINE NEGATIVE (NEGATIVE); OCCULT BLOOD URINE NEGATIVE (NEGATIVE); PROTEIN URINE NEGATIVE (NEGATIVE); SPECIFIC GRAVITY URINE 1.008 (1.005-1.030); UROBILINOGEN URINE 0.2 E.U./dL (0.2-1.0)
[2019-11-21 15:48] LABS: *AMPHETAMINES SCREEN URINE NEGATIVE (NEGATIVE); *BARBITURATES SCREEN URINE NEGATIVE (NEGATIVE); *BENZODIAZEPINES SCREEN URINE PRESUMTIVE POSITIVE (NEGATIVE); *COCAINE SCREEN URINE PRESUMTIVE POSITIVE (NEGATIVE)
[2019-11-21 15:49] LABS: METHADONE URINE SCREEN NEGATIVE (NEGATIVE); OPIATES URINE SCREEN PRESUMTIVE POSITIVE (NEGATIVE)
[2019-11-21 15:50] LABS: CANNABINOID URINE SCREEN NEGATIVE (NEGATIVE); PHENCYCLIDINE URINE SCREEN PRESUMTIVE POSITIVE (NEGATIVE)
[2019-11-21 16:36] VITALS: BP 115/78
== END 2019-11-21 16:39 | disposition home or self-care (01) ==
LOC: ER 12:24
DX: G93.41 Metabolic encephalopathy (principal); F10.129 Alcohol abuse with intoxication, unspecified; F19.10 Other psychoactive substance abuse, uncomplicated; I10 Essential (primary) hypertension; F17.200 Nicotine dependence, unspecified, uncomplicated; Z88.8 Allergy status to other drugs, medicaments and biological substances; Z88.3 Allergy status to other anti-infective agents; Z79.899 Other long term (current) drug therapy; Y90.5 Blood alcohol level of 100-119 mg/100 ml
CPT/HCPCS: 36415; 70450; 71045; 80053; 80305; 80307; 80320; 80329; 81003; 82550; 83880; 84439; 84443; 84484; 85025; 93005; 99285; J7030; G0480

== ENCOUNTER 2019-11-29 03:29 | Emergency (ER) | payer MEDICAID ==
[~2019-11-29] VITALS: Ht 182.9 cm; Wt 73.0 kg
[2019-11-29] MEDS ORDERED: CLONAZEPAM 1MG TABLET PO ONE (04:00)
[2019-11-29] MEDS ORDERED: LEVETIRACETAM 500MG TABLET PO ONE (04:00)
[2019-11-29 04:19] LABS: EOSINOPHILS % 1.5 % (0.0-5.0); HEMATOCRIT. 35.7 % (42.0-52.0); HEMOGLOBIN. 12.1 g/dL (14.0-18.0); LYMPHOCYTES % 32.8 % (20.0-50.0); MEAN CORPUSCULAR HEMOGLOBIN 31.5 pg (28.0-32.0); MEAN PLATELET VOLUME 7.8 fl (7.4-10.4); MONOCYTES % 8.4 % (2.0-8.0); NEUTROPHILS % 56.3 % (40.0-76.0); PLATELET 185 x1000/uL (130-400); RED BLOOD CELL COUNT 3.84 mill/uL (4.7-6.1); RED CELL DISTRIBUTION WIDTH 14.7 % (11.6-14.6)
[2019-11-29 04:23] LABS: CHLORIDE 112 mEq/L (98-107)
[2019-11-29 04:26] LABS: ETHANOL BLOOD < 10 mg/dL
[2019-11-29 04:36] VITALS: BP 137/47
[2019-11-29 05:22] LABS: CLARITY URINE CLEAR (CLEAR); COLOR URINE YELLOW (YELLOW); KETONES URINE NEGATIVE (NEGATIVE); LEUKOCYTE ESTERASE URINE 1+ (NEGATIVE); NITRITE URINE NEGATIVE (NEGATIVE); OCCULT BLOOD URINE NEGATIVE (NEGATIVE); PROTEIN URINE NEGATIVE (NEGATIVE); SPECIFIC GRAVITY URINE 1.013 (1.005-1.030)
[2019-11-29 05:32] LABS: METHADONE URINE SCREEN NEGATIVE (NEGATIVE)
[2019-11-29 05:33] LABS: *BARBITURATES SCREEN URINE NEGATIVE (NEGATIVE); *BENZODIAZEPINES SCREEN URINE PRESUMTIVE POSITIVE (NEGATIVE); *COCAINE SCREEN URINE PRESUMTIVE POSITIVE (NEGATIVE); CANNABINOID URINE SCREEN NEGATIVE (NEGATIVE); OPIATES URINE SCREEN PRESUMTIVE POSITIVE (NEGATIVE); PHENCYCLIDINE URINE SCREEN PRESUMTIVE POSITIVE (NEGATIVE)
[2019-11-29 05:34] LABS: *AMPHETAMINES SCREEN URINE NEGATIVE (NEGATIVE)
== END 2019-11-29 05:19 | disposition home or self-care (01) ==
LOC: ER 03:29
DX: G40.909 Epilepsy, unspecified, not intractable, without status epilepticus (principal); I10 Essential (primary) hypertension; F10.10 Alcohol abuse, uncomplicated; Y90.0 Blood alcohol level of less than 20 mg/100 ml; Z91.14 Patient's other noncompliance with medication regimen; Z88.8 Allergy status to other drugs, medicaments and biological substances
CPT/HCPCS: 36415; 80053; 80305; 80320; 81003; 85025; 99283; G0480

== ENCOUNTER 2019-12-05 20:31 | Inpatient (IN) | payer MEDICAID ==
[~2019-12-05] VITALS: Ht 177.8 cm; Wt 59.9 kg
[2019-12-05] MEDS ORDERED: SODIUM CHLORIDE 0.9% 1,000 ML IV ONE (22:04)
[2019-12-05 23:17] LABS: CHLORIDE 111 mEq/L (98-107)
[2019-12-05 23:18] LABS: BASOPHILS % 1.2 % (0.0-2.0); HEMATOCRIT. 42.5 % (42.0-52.0); HEMOGLOBIN. 14.3 g/dL (14.0-18.0); LYMPHOCYTES % 41.4 % (20.0-50.0); MEAN CORPUSCULAR HEMOGLOBIN 31.6 pg (28.0-32.0); MEAN CORPUSCULAR VOLUME 93.9 fL (80.0-94.0); MEAN PLATELET VOLUME 7.3 fl (7.4-10.4); MONOCYTES % 6.9 % (2.0-8.0); NEUTROPHILS % 49.5 % (40.0-76.0); PLATELET 214 x1000/uL (130-400); RED BLOOD CELL COUNT 4.53 mill/uL (4.7-6.1); RED CELL DISTRIBUTION WIDTH 15.9 % (11.6-14.6)
[2019-12-05 23:24] LABS: ETHANOL BLOOD 143 mg/dL
[2019-12-05 23:24] LABS: CLARITY URINE CLEAR (CLEAR); COLOR URINE YELLOW (YELLOW); KETONES URINE NEGATIVE (NEGATIVE); LEUKOCYTE ESTERASE URINE NEGATIVE (NEGATIVE); NITRITE URINE NEGATIVE (NEGATIVE); OCCULT BLOOD URINE NEGATIVE (NEGATIVE); PROTEIN URINE TRACE (NEGATIVE); UROBILINOGEN URINE 0.2 E.U./dL (0.2-1.0)
[2019-12-05 23:34] LABS: *COCAINE SCREEN URINE NEGATIVE (NEGATIVE); METHADONE URINE SCREEN NEGATIVE (NEGATIVE)
[2019-12-05 23:35] LABS: *AMPHETAMINES SCREEN URINE NEGATIVE (NEGATIVE); *BARBITURATES SCREEN URINE NEGATIVE (NEGATIVE); *BENZODIAZEPINES SCREEN URINE NEGATIVE (NEGATIVE); CANNABINOID URINE SCREEN NEGATIVE (NEGATIVE); OPIATES URINE SCREEN PRESUMTIVE POSITIVE (NEGATIVE); PHENCYCLIDINE URINE SCREEN PRESUMTIVE POSITIVE (NEGATIVE)
[2019-12-06] MEDS ORDERED: IOHEXOL-300 100 ML BOTTLE ONE (00:44)
[2019-12-06] MEDS ORDERED: POLYETHYLENE GLYCOL 3350 (17GM) 1 DOSE PACK PO ONE (02:30)
[2019-12-06 02:40] VITALS: BP 142/89
[2019-12-06] MEDS ORDERED: TLXL5 MT (03:37)
[2019-12-06] MEDS ORDERED: CLON2TAB11 MT (03:37)
[2019-12-06 05:02] VITALS: BP 150/95
[2019-12-06 08:00] VITALS: BP 160/97
[2019-12-06] MEDS: METOPROLOL TARTRATE 50MG TABLET PO SCH ×2 (08:42→21:19)
[2019-12-06] MEDS: CLONAZEPAM 1MG TABLET PO SCH ×3 (08:43→16:27)
[2019-12-06] MEDS ORDERED: CHLORDIAZEPOXIDE 25MG CAPSULE PO SCH ×2 (09:00→14:00)
[2019-12-06 12:00] VITALS: BP 132/79
[2019-12-06] MEDS: CHLORDIAZEPOXIDE 25MG CAPSULE PO SCH ×2 (15:10→21:16)
[2019-12-06] MEDS: FOLIC ACID 1 MG, THIAMINE HCL 100 MG, MVI, ADULT NO.1 10 ML in DEXTROSE 5% WATER 1,000 ML IV SCH ×4 (15:11)
[2019-12-06 16:00] VITALS: BP_SYST 139; BP_SYST 146; BP_DIAS 79; BP_DIAS 88
[2019-12-06 20:33] VITALS: BP 139/87
[2019-12-06] MEDS: HYDROCODONE/ACETAMINOPHEN 10/325MG TABLET PO PRN (21:28)
[2019-12-07 00:31] VITALS: BP 153/89
[2019-12-07] MEDS: HYDROCODONE/ACETAMINOPHEN 10/325MG TABLET PO PRN ×5 (01:44→21:16)
[2019-12-07 04:00] VITALS: BP 136/72
[2019-12-07] MEDS: CHLORDIAZEPOXIDE 25MG CAPSULE PO SCH ×3 (06:21→21:00)
[2019-12-07 08:00] VITALS: BP 122/92
[2019-12-07] MEDS: CLONAZEPAM 1MG TABLET PO SCH ×3 (08:18→17:17)
[2019-12-07] MEDS: METOPROLOL TARTRATE 50MG TABLET PO SCH ×4 (08:19→21:23)
[2019-12-07] MEDS: LORAZEPAM 2MG/ML CPJ IV PRN ×2 (11:51→20:54)
[2019-12-07 12:00] VITALS: BP 122/92
[2019-12-07 16:00] VITALS: BP 127/85
[2019-12-07] MEDS: FOLIC ACID 1 MG, THIAMINE HCL 100 MG, MVI, ADULT NO.1 10 ML in DEXTROSE 5% WATER 1,000 ML IV SCH ×4 (16:15)
[2019-12-07 20:00] VITALS: BP 130/86
[2019-12-07] MEDS ORDERED: DIPHENHYDRAMINE 50MG CAPSULE PO PRN (20:15)
[2019-12-08] VITALS: BP 114/74
[2019-12-08] MEDS ORDERED: HALOPERIDOL LACTATE 5MG/ML VIAL IM PRN
[2019-12-08] MEDS: LORAZEPAM 2MG/ML CPJ IV PRN ×2 (00:52→04:55)
[2019-12-08 04:00] VITALS: BP 112/75
[2019-12-08] MEDS: HYDROCODONE/ACETAMINOPHEN 10/325MG TABLET PO PRN (04:55)
[2019-12-08] MEDS: CHLORDIAZEPOXIDE 25MG CAPSULE PO SCH ×2 (05:01→13:49)
[2019-12-08] MEDS ORDERED: DIPHENHYDRAMINE 50MG/ML VIAL IV PRN (06:30)
[2019-12-08] MEDS ORDERED: DIPHENOXYLATE/ATROPINE 2.5/0.025MG TABLET PO PRN (06:30)
[2019-12-08 08:00] VITALS: BP 114/91
[2019-12-08] MEDS: METOPROLOL TARTRATE 50MG TABLET PO SCH (08:29)
[2019-12-08] MEDS: CLONAZEPAM 1MG TABLET PO SCH ×2 (08:29→13:49)
[2019-12-08 14:10] VITALS: BP 114/91
== END 2019-12-08 14:40 | disposition home or self-care (01) | DRG 53 ==
LOC: ER 20:31 → 6WST 23:49 → EDBEDREQTM 23:52 → EDBEDREQ 23:52 → ENRESERV 12-06 02:09 → 6WST 12-07 14:57
PROVIDERS: ADMIT Internal Medicine; ATTEND Internal Medicine
DX: G40.919 Epilepsy, unspecified, intractable, without status epilepticus (principal); F10.129 Alcohol abuse with intoxication, unspecified; Y90.6 Blood alcohol level of 120-199 mg/100 ml; E87.8 Other disorders of electrolyte and fluid balance, not elsewhere classified; I10 Essential (primary) hypertension; D64.9 Anemia, unspecified; F10.10 Alcohol abuse, uncomplicated; F16.10 Hallucinogen abuse, uncomplicated; F19.10 Other psychoactive substance abuse, uncomplicated; Z91.14 Patient's other noncompliance with medication regimen; Z88.8 Allergy status to other drugs, medicaments and biological substances; Z79.84 Long term (current) use of oral hypoglycemic drugs; Z79.1 Long term (current) use of non-steroidal anti-inflammatories (NSAID); Z79.899 Other long term (current) drug therapy; Z76.5 Malingerer [conscious simulation]
CPT/HCPCS: 36415; 71045; 72131; 74178; 80053; 80305; 80320; 81003; 82962; 85025; 99285; J1630; J2060; J3411; J3490; J7030; J7070; Q0163; Q9967; G0480

== ENCOUNTER 2019-12-10 09:56 | Inpatient (IN) | payer MEDICAID ==
[~2019-12-10] VITALS: Ht 177.8 cm; Wt 60.9 kg
[~2019-12-10 09:56] MED LIST changes: -ALBU18HF2 IH; -CEPH-569; +CLON2TAB11 MT; -CLON2TAB21 MT; -LATA2.5D2 EACHEYE; -LATA2.5D4 EACHEYE; -MESA800T MT; -MESA800T PO; -METF-414 MT; -PROM-177 MT
[2019-12-10 10:40] LABS: BASOPHILS % 0.7 % (0.0-2.0); EOSINOPHILS % 2.8 % (0.0-5.0); HEMATOCRIT. 38.7 % (42.0-52.0); HEMOGLOBIN. 13.1 g/dL (14.0-18.0); LYMPHOCYTES % 38.9 % (20.0-50.0); MEAN CORPUSCULAR HEMOGLOBIN 31.7 pg (28.0-32.0); MEAN CORPUSCULAR VOLUME 93.4 fL (80.0-94.0); MEAN PLATELET VOLUME 7.3 fl (7.4-10.4); NEUTROPHILS % 49.6 % (40.0-76.0); PLATELET 202 x1000/uL (130-400); RED BLOOD CELL COUNT 4.14 mill/uL (4.7-6.1); RED CELL DISTRIBUTION WIDTH 15.7 % (11.6-14.6)
[2019-12-10 10:47] LABS: CHLORIDE 109 mEq/L (98-107)
[2019-12-10 10:52] LABS: ETHANOL BLOOD < 10 mg/dL
[2019-12-10 10:56] LABS: CREATINE KINASE 227 IU/L (39-308)
[2019-12-10 12:37] LABS: CLARITY URINE CLEAR (CLEAR); COLOR URINE YELLOW (YELLOW); KETONES URINE NEGATIVE (NEGATIVE); LEUKOCYTE ESTERASE URINE NEGATIVE (NEGATIVE); NITRITE URINE NEGATIVE (NEGATIVE); OCCULT BLOOD URINE NEGATIVE (NEGATIVE); PROTEIN URINE NEGATIVE (NEGATIVE); SPECIFIC GRAVITY URINE 1.018 (1.005-1.030)
[2019-12-10 12:47] LABS: *AMPHETAMINES SCREEN URINE NEGATIVE (NEGATIVE); *BARBITURATES SCREEN URINE NEGATIVE (NEGATIVE); *BENZODIAZEPINES SCREEN URINE PRESUMTIVE POSITIVE (NEGATIVE); *COCAINE SCREEN URINE PRESUMTIVE POSITIVE (NEGATIVE)
[2019-12-10 12:48] LABS: CANNABINOID URINE SCREEN NEGATIVE (NEGATIVE); METHADONE URINE SCREEN NEGATIVE (NEGATIVE); OPIATES URINE SCREEN PRESUMTIVE POSITIVE (NEGATIVE); PHENCYCLIDINE URINE SCREEN PRESUMTIVE POSITIVE (NEGATIVE)
[2019-12-10] MEDS ORDERED: NALOXONE HCL 0.4 MG/ML 1ML VIAL IV ONE (17:45)
[2019-12-10] MEDS ORDERED: CLONIDINE 0.1MG TABLET PO PRN (18:30)
[2019-12-10] MEDS ORDERED: MAGNESIUM/ALUMINUM HYDROXIDE/SIMETHICONE 30ML UDC PO PRN (18:30)
[2019-12-10] MEDS ORDERED: DOCUSATE SODIUM 100MG CAPSULE PO PRN (18:30)
[2019-12-10] MEDS ORDERED: ACETAMINOPHEN 325MG TABLET PO PRN (18:30)
[2019-12-10] MEDS: ENOXAPARIN 40MG/0.4ML SYR SUBCUT SCH (20:11)
[2019-12-10 22:30] VITALS: BP 123/87
[2019-12-10] MEDS ORDERED: MESA800T MT (22:40)
[2019-12-10 22:44] VITALS: BP 123/87
[2019-12-10] MEDS: CLONAZEPAM 0.5MG TABLET PO SCH (23:10)
[2019-12-11 00:12] VITALS: BP 108/66
[2019-12-11 04:47] VITALS: BP 117/78
[2019-12-11] MEDS: CLONAZEPAM 0.5MG TABLET PO SCH ×4 (06:03→21:26)
[2019-12-11 08:00] VITALS: BP 94/54
[2019-12-11] MEDS: LORAZEPAM 2MG/ML CPJ IV PRN ×3 (08:46→21:35)
[2019-12-11] MEDS: PANTOPRAZOLE SODIUM 40 MG/VIAL IV SCH (08:46)
[2019-12-11 12:00] VITALS: BP 97/62
[2019-12-11] MEDS ORDERED: CLON2TAB11 MT (14:08)
[2019-12-11 16:00] VITALS: BP 109/77
[2019-12-11 16:43] LABS: CHLORIDE 105 mEq/L (98-107)
[2019-12-11 16:57] LABS: BASOPHILS % 1.5 % (0.0-2.0); EOSINOPHILS % 2.6 % (0.0-5.0); HEMATOCRIT. 35.9 % (42.0-52.0); HEMOGLOBIN. 12.1 g/dL (14.0-18.0); LYMPHOCYTES % 44.2 % (20.0-50.0); MEAN CORPUSCULAR VOLUME 94.8 fL (80.0-94.0); MEAN PLATELET VOLUME 9.2 fl (7.4-10.4); MONOCYTES % 11.3 % (2.0-8.0); NEUTROPHILS % 40.4 % (40.0-76.0); PLATELET 174 x1000/uL (130-400); RED BLOOD CELL COUNT 3.79 mill/uL (4.7-6.1); RED CELL DISTRIBUTION WIDTH 15.5 % (11.6-14.6)
[2019-12-11] MEDS: HYDROCODONE/ACETAMINOPHEN 5/325MG TABLET PO PRN (17:55)
[2019-12-11 20:23] VITALS: BP 120/78
[2019-12-11] MEDS: ENOXAPARIN 40MG/0.4ML SYR SUBCUT SCH (21:27)
[2019-12-12 00:07] VITALS: BP 106/65
[2019-12-12] MEDS: HYDROCODONE/ACETAMINOPHEN 5/325MG TABLET PO PRN ×2 (02:36→08:37)
[2019-12-12] MEDS: LORAZEPAM 2MG/ML CPJ IV PRN (02:36)
[2019-12-12 04:47] VITALS: BP 124/81
[2019-12-12] MEDS ORDERED: CLONAZEPAM 1MG TABLET PO SCH (06:00)
[2019-12-12 06:06] LABS: BASOPHILS % 1.3 % (0.0-2.0); EOSINOPHILS % 1.7 % (0.0-5.0); HEMATOCRIT. 36.8 % (42.0-52.0); HEMOGLOBIN. 12.4 g/dL (14.0-18.0); MEAN CORPUSCULAR HEMOGLOBIN 31.2 pg (28.0-32.0); MEAN CORPUSCULAR VOLUME 92.5 fL (80.0-94.0); MONOCYTES % 10.3 % (2.0-8.0); NEUTROPHILS % 42.7 % (40.0-76.0); PLATELET 175 x1000/uL (130-400); RED BLOOD CELL COUNT 3.97 mill/uL (4.7-6.1); RED CELL DISTRIBUTION WIDTH 15.3 % (11.6-14.6)
[2019-12-12 06:12] LABS: CHLORIDE 107 mEq/L (98-107)
[2019-12-12 06:23] LABS: PHOSPHORUS 2.2 mg/dL (2.5-4.9)
[2019-12-12 08:00] VITALS: BP 105/79
[2019-12-12] MEDS: PANTOPRAZOLE SODIUM 40 MG/VIAL IV SCH (08:33)
[2019-12-12 12:00] VITALS: BP 115/77
== END 2019-12-12 12:38 | disposition left against medical advice (07) | DRG 816 ==
LOC: ER 10:13 → 6WST 13:17 → ENRESERV 20:21
PROVIDERS: ADMIT Internal Medicine; ATTEND Internal Medicine
DX: T40.1X1A Poisoning by heroin, accidental (unintentional), initial encounter (principal); G92 Toxic encephalopathy; G40.909 Epilepsy, unspecified, not intractable, without status epilepticus; Z91.14 Patient's other noncompliance with medication regimen; E87.8 Other disorders of electrolyte and fluid balance, not elsewhere classified; F10.10 Alcohol abuse, uncomplicated; M48.061 Spinal stenosis, lumbar region without neurogenic claudication; F11.10 Opioid abuse, uncomplicated; G89.29 Other chronic pain; M54.9 Dorsalgia, unspecified; Z79.899 Other long term (current) drug therapy; Z71.51 Drug abuse counseling and surveillance of drug abuser; Y92.89 Other specified places as the place of occurrence of the external cause; Z88.8 Allergy status to other drugs, medicaments and biological substances
CPT/HCPCS: 36415; 71045; 80048; 80053; 80305; 80307; 80320; 80329; 81003; 82140; 82550; 83605; 83735; 84100; 84443; 84484; 85025; 93970; 99285; C9113; J1650; J2060; J2310; G0480

== ENCOUNTER 2019-12-16 10:18 | Emergency (ER) | payer MEDICAID ==
[~2019-12-16] VITALS: Ht 175.3 cm; Wt 77.0 kg
[~2019-12-16 10:18] MED LIST changes: +MESA800T MT
[2019-12-16 11:03] LABS: BASOPHILS % 0.5 % (0.0-2.0); EOSINOPHILS % 1.6 % (0.0-5.0); HEMATOCRIT. 32.5 % (42.0-52.0); HEMOGLOBIN. 10.9 g/dL (14.0-18.0); LYMPHOCYTES % 28.1 % (20.0-50.0); MEAN CORPUSCULAR HEMOGLOBIN 31.2 pg (28.0-32.0); MEAN CORPUSCULAR VOLUME 92.8 fL (80.0-94.0); MEAN PLATELET VOLUME 7.9 fl (7.4-10.4); MONOCYTES % 10.3 % (2.0-8.0); NEUTROPHILS % 59.5 % (40.0-76.0); PLATELET 198 x1000/uL (130-400); RED CELL DISTRIBUTION WIDTH 15.5 % (11.6-14.6)
[2019-12-16 11:11] LABS: CHLORIDE 107 mEq/L (98-107)
[2019-12-16 11:16] LABS: ETHANOL BLOOD 27 mg/dL
[2019-12-16] MEDS ORDERED: LEVETIRACETAM 500MG TABLET PO ONE (11:45)
[2019-12-16] MEDS ORDERED: CLONAZEPAM 1MG TABLET PO ONE (12:15)
[2019-12-16 16:42] VITALS: BP 122/83
== END 2019-12-16 19:26 | disposition home or self-care (01) ==
LOC: ER 10:22
DX: G40.909 Epilepsy, unspecified, not intractable, without status epilepticus (principal); Z88.2 Allergy status to sulfonamides; Z79.899 Other long term (current) drug therapy
CPT/HCPCS: 36415; 80053; 80320; 85025; 93005; 99285; G0480

== ENCOUNTER 2019-12-17 05:41 | Emergency (ER) | payer MEDICAID ==
[~2019-12-17] VITALS: Ht 177.8 cm; Wt 62.0 kg
[2019-12-17] MEDS ORDERED: KETOROLAC 30MG/ML VIAL IV ONE (07:00)
[2019-12-17 07:15] LABS: BASOPHILS % 0.8 % (0.0-2.0); EOSINOPHILS % 1.2 % (0.0-5.0); HEMATOCRIT. 36.7 % (42.0-52.0); HEMOGLOBIN. 12.3 g/dL (14.0-18.0); LYMPHOCYTES % 27.6 % (20.0-50.0); MEAN CORPUSCULAR HEMOGLOBIN 31.5 pg (28.0-32.0); MEAN CORPUSCULAR VOLUME 93.8 fL (80.0-94.0); MEAN PLATELET VOLUME 8.4 fl (7.4-10.4); MONOCYTES % 10.7 % (2.0-8.0); NEUTROPHILS % 59.7 % (40.0-76.0); PLATELET 196 x1000/uL (130-400); RED BLOOD CELL COUNT 3.92 mill/uL (4.7-6.1); RED CELL DISTRIBUTION WIDTH 15.4 % (11.6-14.6)
[2019-12-17 07:22] LABS: CHLORIDE 105 mEq/L (98-107)
[2019-12-17 07:26] LABS: ETHANOL BLOOD 10 mg/dL
[2019-12-17 07:32] VITALS: BP 87/54
[2019-12-17 08:43] LABS: CLARITY URINE CLEAR (CLEAR); COLOR URINE DARK YELLOW (YELLOW); KETONES URINE TRACE (NEGATIVE); LEUKOCYTE ESTERASE URINE TRACE (NEGATIVE); NITRITE URINE NEGATIVE (NEGATIVE); OCCULT BLOOD URINE NEGATIVE (NEGATIVE); PROTEIN URINE NEGATIVE (NEGATIVE); SPECIFIC GRAVITY URINE 1.028 (1.005-1.030)
[2019-12-17] MEDS ORDERED: LEVETIRACETAM 500MG TABLET PO ONE (08:45)
[2019-12-17 09:00] LABS: *BENZODIAZEPINES SCREEN URINE PRESUMTIVE POSITIVE (NEGATIVE); *COCAINE SCREEN URINE PRESUMTIVE POSITIVE (NEGATIVE); METHADONE URINE SCREEN NEGATIVE (NEGATIVE); OPIATES URINE SCREEN PRESUMTIVE POSITIVE (NEGATIVE)
[2019-12-17] MEDS ORDERED: CLONAZEPAM 1MG TABLET PO ONE (09:00)
[2019-12-17 09:01] LABS: *AMPHETAMINES SCREEN URINE NEGATIVE (NEGATIVE); *BARBITURATES SCREEN URINE NEGATIVE (NEGATIVE); CANNABINOID URINE SCREEN NEGATIVE (NEGATIVE); PHENCYCLIDINE URINE SCREEN PRESUMTIVE POSITIVE (NEGATIVE)
== END 2019-12-17 10:14 | disposition home or self-care (01) ==
LOC: ER 05:41
DX: G40.909 Epilepsy, unspecified, not intractable, without status epilepticus (principal); E11.9 Type 2 diabetes mellitus without complications; F17.210 Nicotine dependence, cigarettes, uncomplicated; F10.21 Alcohol dependence, in remission; Z59.0 Homelessness; Z88.8 Allergy status to other drugs, medicaments and biological substances
CPT/HCPCS: 36415; 80053; 80305; 80320; 81003; 85025; 96374; 99283; J1885; G0480

== ENCOUNTER 2019-12-18 13:18 | Emergency (ER) | payer MEDICAID ==
[~2019-12-18] VITALS: Ht 177.8 cm; Wt 59.0 kg
[2019-12-18 13:29] VITALS: BP 125/68
[2019-12-18] MEDS ORDERED: CHLORDIAZEPOXIDE 10MG CAPSULE PO NR (15:00)
== END 2019-12-18 14:32 | disposition left against medical advice (07) ==
LOC: ER 13:51
DX: F10.229 Alcohol dependence with intoxication, unspecified (principal); E11.9 Type 2 diabetes mellitus without complications; G40.909 Epilepsy, unspecified, not intractable, without status epilepticus; Y90.9 Presence of alcohol in blood, level not specified; Z88.8 Allergy status to other drugs, medicaments and biological substances
CPT/HCPCS: 93005; 99283

== ENCOUNTER 2019-12-22 02:23 | Emergency (ER) | payer MEDICAID ==
[~2019-12-22] VITALS: Ht 175.3 cm; Wt 73.0 kg
[2019-12-22 07:30] VITALS: BP 106/59
== END 2019-12-22 08:02 | disposition home or self-care (01) ==
LOC: ER 02:23
DX: G40.909 Epilepsy, unspecified, not intractable, without status epilepticus (principal); E11.9 Type 2 diabetes mellitus without complications; F10.21 Alcohol dependence, in remission; Z88.8 Allergy status to other drugs, medicaments and biological substances
CPT/HCPCS: 93005; 99283

== ENCOUNTER 2019-12-25 06:01 | Emergency (ER) | payer MEDICAID ==
[~2019-12-25] VITALS: Ht 177.8 cm; Wt 63.0 kg
[2019-12-25] MEDS ORDERED: KETOROLAC 30MG/ML VIAL IV STA (07:47)
[2019-12-25] MEDS ORDERED: PIPERACILLIN/TAZ 3.375G PREMIX 50 ML IV ONE (08:00)
[2019-12-25] MEDS ORDERED: LORAZEPAM 2MG/ML CPJ IV ONE (08:00)
[2019-12-25] MEDS ORDERED: VANCOMYCIN 1 G PREMIX 200 ML IV ONE (08:00)
[2019-12-25] MEDS ORDERED: BACITRACIN ZINC OINT UDPKT TOP ONE (08:00)
[2019-12-25] MEDS ORDERED: LIDOCAINE 1%/EPI 1:100,000 10 ML VIAL IJ ONE (08:00)
[2019-12-25 08:15] LABS: BASOPHILS % 0.5 % (0.0-2.0); EOSINOPHILS % 0.7 % (0.0-5.0); HEMATOCRIT. 33.9 % (42.0-52.0); HEMOGLOBIN. 11.3 g/dL (14.0-18.0); LYMPHOCYTES % 17.8 % (20.0-50.0); MEAN CORPUSCULAR HEMOGLOBIN 31.3 pg (28.0-32.0); MEAN CORPUSCULAR VOLUME 93.7 fL (80.0-94.0); MONOCYTES % 9.9 % (2.0-8.0); NEUTROPHILS % 71.1 % (40.0-76.0); PLATELET 312 x1000/uL (130-400); RED BLOOD CELL COUNT 3.62 mill/uL (4.7-6.1); RED CELL DISTRIBUTION WIDTH 15.3 % (11.6-14.6)
[2019-12-25] MEDS ORDERED: LIDOCAINE HCL/EPINEPHRINE 1%-EPI 1:100,000 20 ML VIAL INFIL SCH (08:15)
[2019-12-25 08:22] LABS: CHLORIDE 110 mEq/L (98-107)
[2019-12-25 08:26] LABS: ETHANOL BLOOD < 10 mg/dL
[2019-12-25 11:00] VITALS: BP 136/74
== END 2019-12-25 11:15 | disposition left against medical advice (07) ==
LOC: ER 06:01
DX: G40.909 Epilepsy, unspecified, not intractable, without status epilepticus (principal); L02.211 Cutaneous abscess of abdominal wall; E11.9 Type 2 diabetes mellitus without complications; F11.10 Opioid abuse, uncomplicated; Z88.8 Allergy status to other drugs, medicaments and biological substances
CPT/HCPCS: 10060; 36415; 71045; 80053; 80320; 83605; 84484; 85025; 87040; 93005; 96365; 96368; 96375; 99285; J1885; J2060; J2543; J3370; J3490; G0480

== ENCOUNTER 2019-12-25 19:45 | Emergency (ER) | payer MEDICAID ==
[~2019-12-25] VITALS: Ht 172.7 cm; Wt 83.0 kg
[2019-12-26 06:22] VITALS: BP 118/64
[2019-12-26] MEDS ORDERED: CLONAZEPAM 1MG TABLET PO ONE (06:45)
[2019-12-26] MEDS ORDERED: ACETAMINOPHEN 325MG TABLET PO ONE (06:45)
== END 2019-12-26 08:41 | disposition home or self-care (01) ==
LOC: ER 19:45
DX: F10.20 Alcohol dependence, uncomplicated (principal); Y90.0 Blood alcohol level of less than 20 mg/100 ml; F14.10 Cocaine abuse, uncomplicated; F11.10 Opioid abuse, uncomplicated; H40.9 Unspecified glaucoma; Z88.8 Allergy status to other drugs, medicaments and biological substances; Z88.3 Allergy status to other anti-infective agents
CPT/HCPCS: 99283

== ENCOUNTER 2019-12-27 03:45 | Emergency (ER) | payer MEDICAID ==
[~2019-12-27] VITALS: Ht 177.8 cm; Wt 73.0 kg
[2019-12-27] MEDS ORDERED: DEXTROSE 50% WATER 50ML SYRINGE IV ONE (04:31)
[2019-12-27 05:22] LABS: BASOPHILS % 1.3 % (0.0-2.0); EOSINOPHILS % 1.7 % (0.0-5.0); HEMATOCRIT. 37.6 % (42.0-52.0); HEMOGLOBIN. 12.4 g/dL (14.0-18.0); LYMPHOCYTES % 34.6 % (20.0-50.0); MEAN CORPUSCULAR HEMOGLOBIN 31.1 pg (28.0-32.0); MEAN CORPUSCULAR VOLUME 94.2 fL (80.0-94.0); MEAN PLATELET VOLUME 7.5 fl (7.4-10.4); MONOCYTES % 6.7 % (2.0-8.0); NEUTROPHILS % 55.7 % (40.0-76.0); PLATELET 363 x1000/uL (130-400); RED CELL DISTRIBUTION WIDTH 15.7 % (11.6-14.6)
[2019-12-27 05:25] LABS: CHLORIDE 119 mEq/L (98-107)
[2019-12-27 05:29] LABS: ETHANOL BLOOD 253 mg/dL
[2019-12-27 08:51] VITALS: BP 128/68
== END 2019-12-27 08:55 | disposition home or self-care (01) ==
LOC: ER 03:45
DX: F10.229 Alcohol dependence with intoxication, unspecified (principal); Y90.8 Blood alcohol level of 240 mg/100 ml or more; Z88.8 Allergy status to other drugs, medicaments and biological substances
CPT/HCPCS: 36415; 80053; 80320; 82962; 85025; 93005; 99285; G0480

== ENCOUNTER 2019-12-31 15:43 | Emergency (ER) | payer MEDICAID ==
[~2019-12-31] VITALS: Ht 170.2 cm; Wt 61.0 kg
[2019-12-31 15:49] VITALS: BP 133/79
== END 2019-12-31 18:56 | disposition left against medical advice (07) ==
LOC: ER 15:43
DX: Z53.21 Procedure and treatment not carried out due to patient leaving prior to being seen by health care provider (principal)

== ENCOUNTER 2020-01-06 00:08 | Emergency (ER) | payer MEDICAID ==
[~2020-01-06] VITALS: Ht 177.8 cm; Wt 63.0 kg
[2020-01-06] MEDS ORDERED: KETOROLAC 60MG/2ML VIAL IM ONE (02:30)
[2020-01-06 04:30] VITALS: BP 105/67
== END 2020-01-06 07:02 | disposition home or self-care (01) ==
LOC: ER 00:08
DX: G40.909 Epilepsy, unspecified, not intractable, without status epilepticus (principal); G89.29 Other chronic pain; F10.20 Alcohol dependence, uncomplicated; F14.10 Cocaine abuse, uncomplicated; F16.10 Hallucinogen abuse, uncomplicated; F12.10 Cannabis abuse, uncomplicated; Z79.899 Other long term (current) drug therapy; Z88.6 Allergy status to analgesic agent; Z88.8 Allergy status to other drugs, medicaments and biological substances; Y90.9 Presence of alcohol in blood, level not specified
CPT/HCPCS: 93005; 96372; 99283; J1885

== ENCOUNTER 2020-01-08 02:22 | Emergency (ER) | payer MEDICAID ==
[~2020-01-08] VITALS: Ht 177.8 cm; Wt 66.0 kg
[2020-01-08 03:43] LABS: BASOPHILS % 1.7 % (0.0-2.0); EOSINOPHILS % 0.6 % (0.0-5.0); HEMOGLOBIN. 11.2 g/dL (14.0-18.0); LYMPHOCYTES % 26.2 % (20.0-50.0); MEAN CORPUSCULAR HEMOGLOBIN 31.2 pg (28.0-32.0); MEAN CORPUSCULAR VOLUME 94.4 fL (80.0-94.0); MEAN PLATELET VOLUME 8.2 fl (7.4-10.4); MONOCYTES % 10.8 % (2.0-8.0); NEUTROPHILS % 60.7 % (40.0-76.0); PLATELET 193 x1000/uL (130-400); RED CELL DISTRIBUTION WIDTH 16.3 % (11.6-14.6)
[2020-01-08 04:06] LABS: CHLORIDE 106 mEq/L (98-107)
[2020-01-08 04:10] LABS: ETHANOL BLOOD < 10 mg/dL
[2020-01-08 04:45] VITALS: BP 120/74
[2020-01-08] MEDS ORDERED: CLONAZEPAM 0.5MG TABLET PO ONE (05:00)
[2020-01-08] MEDS ORDERED: DIVALPROEX SODIUM 250MG ER TABLET PO ONE (05:00)
[2020-01-08 05:18] LABS: *AMPHETAMINES SCREEN URINE NEGATIVE (NEGATIVE); *BARBITURATES SCREEN URINE NEGATIVE (NEGATIVE); *BENZODIAZEPINES SCREEN URINE NEGATIVE (NEGATIVE); *COCAINE SCREEN URINE NEGATIVE (NEGATIVE)
[2020-01-08 05:19] LABS: CANNABINOID URINE SCREEN NEGATIVE (NEGATIVE); METHADONE URINE SCREEN NEGATIVE (NEGATIVE); OPIATES URINE SCREEN PRESUMTIVE POSITIVE (NEGATIVE); PHENCYCLIDINE URINE SCREEN PRESUMTIVE POSITIVE (NEGATIVE)
== END 2020-01-08 06:07 | disposition home or self-care (01) ==
LOC: ER 02:22
DX: F16.10 Hallucinogen abuse, uncomplicated (principal); K62.5 Hemorrhage of anus and rectum; F13.10 Sedative, hypnotic or anxiolytic abuse, uncomplicated; F14.10 Cocaine abuse, uncomplicated; F11.10 Opioid abuse, uncomplicated; F17.210 Nicotine dependence, cigarettes, uncomplicated; G40.909 Epilepsy, unspecified, not intractable, without status epilepticus; Z88.8 Allergy status to other drugs, medicaments and biological substances
CPT/HCPCS: 36415; 71045; 80053; 80305; 80320; 83880; 84484; 85025; 93005; 99285; Z7610; G0480

== ENCOUNTER 2020-01-10 19:49 | Emergency (ER) | payer MEDICAID ==
[~2020-01-10] VITALS: Ht 177.8 cm; Wt 68.0 kg
[2020-01-10] MEDS ORDERED: SULFAMETHOXAZOLE/TRIMETHOPRIM 800/160MG TABLET PO ONE (21:00)
[2020-01-10] MEDS ORDERED: SODIUM CHLORIDE 0.9% 1,000 ML IV ONE (21:00)
[2020-01-10] MEDS ORDERED: CEFTRIAXONE 1 G PREMIX 50 ML IV ONE (21:00)
[2020-01-10 23:28] LABS: BASOPHILS % 0.9 % (0.0-2.0); EOSINOPHILS % 1.9 % (0.0-5.0); HEMATOCRIT. 34.8 % (42.0-52.0); HEMOGLOBIN. 11.6 g/dL (14.0-18.0); LYMPHOCYTES % 25.8 % (20.0-50.0); MEAN CORPUSCULAR HEMOGLOBIN 31.6 pg (28.0-32.0); MEAN CORPUSCULAR VOLUME 95.2 fL (80.0-94.0); MEAN PLATELET VOLUME 7.5 fl (7.4-10.4); MONOCYTES % 11.1 % (2.0-8.0); NEUTROPHILS % 60.3 % (40.0-76.0); PLATELET 188 x1000/uL (130-400); RED BLOOD CELL COUNT 3.66 mill/uL (4.7-6.1); RED CELL DISTRIBUTION WIDTH 16.4 % (11.6-14.6)
[2020-01-10 23:33] LABS: CHLORIDE 113 mEq/L (98-107)
[2020-01-10 23:37] LABS: ETHANOL BLOOD < 10 mg/dL
[2020-01-10 23:38] LABS: C REACTIVE PROTEIN QUANT 2.7 mg/L (0.0-3.0)
[2020-01-11 02:45] VITALS: BP 159/83
[2020-01-11 03:03] LABS: CLARITY URINE CLEAR (CLEAR); COLOR URINE YELLOW (YELLOW); KETONES URINE NEGATIVE (NEGATIVE); LEUKOCYTE ESTERASE URINE NEGATIVE (NEGATIVE); NITRITE URINE NEGATIVE (NEGATIVE); OCCULT BLOOD URINE NEGATIVE (NEGATIVE); PH URINE 5.5 (4.5-8.0); PROTEIN URINE NEGATIVE (NEGATIVE); SPECIFIC GRAVITY URINE 1.039 (1.005-1.030); UROBILINOGEN URINE 0.2 E.U./dL (0.2-1.0)
[2020-01-11 03:17] LABS: *AMPHETAMINES SCREEN URINE PRESUMTIVE POSITIVE (NEGATIVE); CANNABINOID URINE SCREEN PRESUMTIVE POSITIVE (NEGATIVE); PHENCYCLIDINE URINE SCREEN NEGATIVE (NEGATIVE)
[2020-01-11 03:18] LABS: *BARBITURATES SCREEN URINE NEGATIVE (NEGATIVE); *BENZODIAZEPINES SCREEN URINE NEGATIVE (NEGATIVE); *COCAINE SCREEN URINE NEGATIVE (NEGATIVE); METHADONE URINE SCREEN NEGATIVE (NEGATIVE); OPIATES URINE SCREEN NEGATIVE (NEGATIVE)
== END 2020-01-11 03:17 | disposition home or self-care (01) ==
LOC: ER 19:49
DX: F19.10 Other psychoactive substance abuse, uncomplicated (principal); L03.114 Cellulitis of left upper limb; F10.229 Alcohol dependence with intoxication, unspecified; Y90.0 Blood alcohol level of less than 20 mg/100 ml; F14.10 Cocaine abuse, uncomplicated; F11.10 Opioid abuse, uncomplicated; F16.10 Hallucinogen abuse, uncomplicated; Z79.899 Other long term (current) drug therapy; Z88.3 Allergy status to other anti-infective agents; F13.10 Sedative, hypnotic or anxiolytic abuse, uncomplicated
CPT/HCPCS: 36415; 71045; 73060; 80053; 80305; 80320; 81003; 85025; 86140; 87040; 87086; 93005; 96365; 96366; 99285; J0696; J7030; G0480

== ENCOUNTER 2020-01-13 21:17 | Emergency (ER) | payer MEDICAID ==
[~2020-01-13] VITALS: Ht 177.8 cm; Wt 61.0 kg
[2020-01-14] MEDS ORDERED: CLONAZEPAM 1MG TABLET PO ONE (02:30)
[2020-01-14 06:29] VITALS: BP 115/69
== END 2020-01-14 06:30 | disposition home or self-care (01) ==
LOC: ER 21:17
DX: G40.909 Epilepsy, unspecified, not intractable, without status epilepticus (principal); F17.210 Nicotine dependence, cigarettes, uncomplicated; Z71.6 Tobacco abuse counseling
CPT/HCPCS: 93005; 99283; 99406

== ENCOUNTER 2020-01-22 14:24 | Emergency (ER) | payer MEDICAID ==
[~2020-01-22] VITALS: Ht 175.3 cm; Wt 80.0 kg
[2020-01-22] MEDS ORDERED: FOLIC ACID 1 MG, THIAMINE HCL 100 MG, MVI, ADULT NO.1 10 ML in DEXTROSE 5% WATER 1,000 ML IV ONE ×4 (15:15)
[2020-01-22] MEDS ORDERED: ONDANSETRON HCL 4MG/2ML INJ IV ONE (15:15)
[2020-01-22 16:26] LABS: BASOPHILS % 1.7 % (0.0-2.0); EOSINOPHILS % 1.9 % (0.0-5.0); HEMATOCRIT. 35.1 % (42.0-52.0); HEMOGLOBIN. 11.6 g/dL (14.0-18.0); LYMPHOCYTES % 47.1 % (20.0-50.0); MEAN CORPUSCULAR HEMOGLOBIN 31.5 pg (28.0-32.0); MEAN CORPUSCULAR VOLUME 95.6 fL (80.0-94.0); MEAN PLATELET VOLUME 8.5 fl (7.4-10.4); MONOCYTES % 6.6 % (2.0-8.0); NEUTROPHILS % 42.7 % (40.0-76.0); PLATELET 256 x1000/uL (130-400); RED BLOOD CELL COUNT 3.67 mill/uL (4.7-6.1); RED CELL DISTRIBUTION WIDTH 16.1 % (11.6-14.6)
[2020-01-22 16:28] LABS: CHLORIDE 109 mEq/L (98-107)
[2020-01-22 16:32] LABS: ETHANOL BLOOD 241 mg/dL
[2020-01-22 16:54] LABS: CLARITY URINE CLEAR (CLEAR); COLOR URINE YELLOW (YELLOW); KETONES URINE NEGATIVE (NEGATIVE); LEUKOCYTE ESTERASE URINE NEGATIVE (NEGATIVE); NITRITE URINE NEGATIVE (NEGATIVE); OCCULT BLOOD URINE NEGATIVE (NEGATIVE); PH URINE 5.5 (4.5-8.0); PROTEIN URINE NEGATIVE (NEGATIVE); SPECIFIC GRAVITY URINE 1.009 (1.005-1.030); UROBILINOGEN URINE 0.2 E.U./dL (0.2-1.0)
[2020-01-22] MEDS ORDERED: MAGNESIUM 2 G PREMIX 50 ML IV ONE (17:00)
[2020-01-22] MEDS ORDERED: POTASSIUM CHLORIDE 20MEQ TABLET SR PO ONE (17:00)
[2020-01-22] MEDS ORDERED: KCL 20MEQ/100ML PREMIX 100 ML IV ONE (17:00)
[2020-01-22 17:34] LABS: *AMPHETAMINES SCREEN URINE NEGATIVE (NEGATIVE); *BARBITURATES SCREEN URINE NEGATIVE (NEGATIVE); *BENZODIAZEPINES SCREEN URINE PRESUMTIVE POSITIVE (NEGATIVE); *COCAINE SCREEN URINE PRESUMTIVE POSITIVE (NEGATIVE); CANNABINOID URINE SCREEN NEGATIVE (NEGATIVE); METHADONE URINE SCREEN NEGATIVE (NEGATIVE); OPIATES URINE SCREEN PRESUMTIVE POSITIVE (NEGATIVE); PHENCYCLIDINE URINE SCREEN PRESUMTIVE POSITIVE (NEGATIVE)
[2020-01-22] MEDS ORDERED: CLONAZEPAM 0.5MG TABLET PO ONE (18:45)
[2020-01-23] MEDS ORDERED: CLONAZEPAM 0.5MG TABLET PO ONE (03:15)
[2020-01-23] MEDS ORDERED: ACETAMINOPHEN 325MG TABLET PO ONE (03:15)
[2020-01-23 06:40] VITALS: BP 121/68
== END 2020-01-23 06:41 | disposition home or self-care (01) ==
LOC: ER 14:24
DX: T51.0X1A Toxic effect of ethanol, accidental (unintentional), initial encounter (principal); G92 Toxic encephalopathy; E87.6 Hypokalemia; F14.10 Cocaine abuse, uncomplicated; F11.20 Opioid dependence, uncomplicated; F13.10 Sedative, hypnotic or anxiolytic abuse, uncomplicated; F16.10 Hallucinogen abuse, uncomplicated; G40.909 Epilepsy, unspecified, not intractable, without status epilepticus; Y90.8 Blood alcohol level of 240 mg/100 ml or more; Z88.8 Allergy status to other drugs, medicaments and biological substances; Z88.3 Allergy status to other anti-infective agents; Z88.9 Allergy status to unspecified drugs, medicaments and biological substances; Z79.899 Other long term (current) drug therapy; Y92.488 Other paved roadways as the place of occurrence of the external cause
CPT/HCPCS: 36415; 70450; 80053; 80305; 80307; 80320; 80329; 81003; 85025; 93005; 96365; 96366; 96367; 96368; 96375; 99285; J2405; J3411; J3475; J3480; J3490; J7070; G0480

== ENCOUNTER 2020-01-24 07:50 | Emergency (ER) | payer MEDICAID ==
[~2020-01-24] VITALS: Ht 177.8 cm; Wt 58.0 kg
[2020-01-24] MEDS ORDERED: CLONAZEPAM 1MG TABLET PO ONE (08:30)
[2020-01-24 10:25] VITALS: BP 151/86
== END 2020-01-24 11:30 | disposition home or self-care (01) ==
LOC: ER 07:50
DX: S00.03XA Contusion of scalp, initial encounter (principal); Z76.0 Encounter for issue of repeat prescription; G40.909 Epilepsy, unspecified, not intractable, without status epilepticus; Z91.048 Other nonmedicinal substance allergy status; W01.0XXA Fall on same level from slipping, tripping and stumbling without subsequent striking against object, initial encounter; Y93.89 Activity, other specified; Y92.488 Other paved roadways as the place of occurrence of the external cause
CPT/HCPCS: 99284

== ENCOUNTER 2020-01-24 14:40 | Emergency (ER) | payer MEDICAID ==
[~2020-01-24] VITALS: Ht 172.7 cm; Wt 50.0 kg
[2020-01-24 15:44] LABS: HEMATOCRIT. 34.5 % (42.0-52.0); HEMOGLOBIN. 11.4 g/dL (14.0-18.0); MEAN CORPUSCULAR HEMOGLOBIN 31.3 pg (28.0-32.0); MEAN CORPUSCULAR VOLUME 94.5 fL (80.0-94.0); MEAN PLATELET VOLUME 7.7 fl (7.4-10.4); PLATELET 259 x1000/uL (130-400); RED BLOOD CELL COUNT 3.65 mill/uL (4.7-6.1); RED CELL DISTRIBUTION WIDTH 15.7 % (11.6-14.6)
[2020-01-24 15:50] LABS: CHLORIDE 117 mEq/L (98-107)
[2020-01-24 15:55] LABS: ETHANOL BLOOD 269 mg/dL
[2020-01-24 16:03] LABS: PROTHROMBIN TIME 10.4 sec (9.6-11.0)
[2020-01-24 17:14] LABS: PLATELET ESTIMATE NORMAL
[2020-01-24 19:16] VITALS: BP 144/93
== END 2020-01-24 19:39 | disposition home or self-care (01) ==
LOC: ER 14:46
DX: F10.10 Alcohol abuse, uncomplicated (principal); G40.909 Epilepsy, unspecified, not intractable, without status epilepticus; Y90.8 Blood alcohol level of 240 mg/100 ml or more; Z88.8 Allergy status to other drugs, medicaments and biological substances
CPT/HCPCS: 36415; 80053; 80320; 85025; 99283; G0480

== ENCOUNTER 2020-01-26 18:46 | Emergency (ER) | payer MEDICAID ==
[~2020-01-26] VITALS: Ht 172.7 cm; Wt 63.0 kg
[2020-01-26 19:54] LABS: BASOPHILS % 1.3 % (0.0-2.0); EOSINOPHILS % 1.1 % (0.0-5.0); LYMPHOCYTES % 32.6 % (20.0-50.0); MEAN CORPUSCULAR HEMOGLOBIN 32.4 pg (28.0-32.0); MEAN CORPUSCULAR VOLUME 94.4 fL (80.0-94.0); MEAN PLATELET VOLUME 7.6 fl (7.4-10.4); MONOCYTES % 12.1 % (2.0-8.0); NEUTROPHILS % 52.9 % (40.0-76.0); PLATELET 256 x1000/uL (130-400); RED CELL DISTRIBUTION WIDTH 15.6 % (11.6-14.6)
[2020-01-26 19:57] LABS: CHLORIDE 109 mEq/L (98-107)
[2020-01-26 20:03] LABS: ETHANOL BLOOD < 10 mg/dL
[2020-01-27 00:30] VITALS: BP 133/79
== END 2020-01-27 00:30 | disposition home or self-care (01) ==
LOC: ER 18:46
DX: R56.9 Unspecified convulsions (principal); F10.229 Alcohol dependence with intoxication, unspecified; Y90.0 Blood alcohol level of less than 20 mg/100 ml; F11.10 Opioid abuse, uncomplicated; Z79.899 Other long term (current) drug therapy; Z88.8 Allergy status to other drugs, medicaments and biological substances
CPT/HCPCS: 36415; 80053; 80320; 85025; 99285; G0480

== ENCOUNTER 2020-01-28 05:36 | Emergency (ER) | payer MEDICAID ==
[~2020-01-28] VITALS: Ht 177.8 cm; Wt 66.0 kg
[2020-01-28 05:42] VITALS: BP 132/82
== END 2020-01-28 06:14 | disposition left against medical advice (07) ==
LOC: ER 05:36
DX: Z53.21 Procedure and treatment not carried out due to patient leaving prior to being seen by health care provider (principal); R56.9 Unspecified convulsions; Z88.8 Allergy status to other drugs, medicaments and biological substances
CPT/HCPCS: 93005

== ENCOUNTER 2020-01-28 20:37 | Emergency (ER) | payer MEDICAID ==
[~2020-01-28] VITALS: Ht 177.8 cm; Wt 68.0 kg
[2020-01-29 01:46] LABS: HEMATOCRIT 35.9 % (42.0-52.0); HEMOGLOBIN 12.1 g/dL (14.0-18.0); MEAN CORPUSCULAR HEMOGLOBIN 32.1 pg (28.0-32.0); MEAN CORPUSCULAR VOLUME 95.4 fL (80.0-94.0); PLATELET 235 x1000/uL (130-400); RED BLOOD CELL COUNT 3.76 mill/uL (4.7-6.1); RED CELL DISTRIBUTION WIDTH 15.9 % (11.6-14.6)
[2020-01-29 01:51] LABS: CHLORIDE 107 mEq/L (98-107)
[2020-01-29 03:09] LABS: *AMPHETAMINES SCREEN URINE NEGATIVE (NEGATIVE); *BARBITURATES SCREEN URINE NEGATIVE (NEGATIVE); *BENZODIAZEPINES SCREEN URINE PRESUMTIVE POSITIVE (NEGATIVE)
[2020-01-29 03:10] LABS: *COCAINE SCREEN URINE PRESUMTIVE POSITIVE (NEGATIVE); CANNABINOID URINE SCREEN NEGATIVE (NEGATIVE); METHADONE URINE SCREEN NEGATIVE (NEGATIVE); OPIATES URINE SCREEN PRESUMTIVE POSITIVE (NEGATIVE); PHENCYCLIDINE URINE SCREEN PRESUMTIVE POSITIVE (NEGATIVE)
[2020-01-29 07:30] VITALS: BP 113/62
== END 2020-01-29 07:30 | disposition home or self-care (01) ==
LOC: ER 20:37
DX: T51.0X1A Toxic effect of ethanol, accidental (unintentional), initial encounter (principal); G92 Toxic encephalopathy; F14.10 Cocaine abuse, uncomplicated; F13.10 Sedative, hypnotic or anxiolytic abuse, uncomplicated; F11.10 Opioid abuse, uncomplicated; F16.10 Hallucinogen abuse, uncomplicated; G40.909 Epilepsy, unspecified, not intractable, without status epilepticus; Z88.8 Allergy status to other drugs, medicaments and biological substances; Y92.488 Other paved roadways as the place of occurrence of the external cause
CPT/HCPCS: 36415; 80048; 80305; 80320; 84484; 85027; 93005; 99285; G0480

== ENCOUNTER 2020-01-29 22:01 | Emergency (ER) | payer MEDICAID ==
[~2020-01-29] VITALS: Ht 177.8 cm; Wt 65.0 kg
[2020-01-30 02:17] LABS: EOSINOPHILS % 1.3 % (0.0-5.0); HEMOGLOBIN. 11.9 g/dL (14.0-18.0); LYMPHOCYTES % 31.9 % (20.0-50.0); MEAN CORPUSCULAR HEMOGLOBIN 32.3 pg (28.0-32.0); MEAN CORPUSCULAR VOLUME 95.5 fL (80.0-94.0); MEAN PLATELET VOLUME 7.4 fl (7.4-10.4); MONOCYTES % 7.1 % (2.0-8.0); NEUTROPHILS % 58.7 % (40.0-76.0); PLATELET 245 x1000/uL (130-400); RED BLOOD CELL COUNT 3.67 mill/uL (4.7-6.1); RED CELL DISTRIBUTION WIDTH 15.6 % (11.6-14.6)
[2020-01-30 02:20] VITALS: BP 150/85
[2020-01-30 02:22] LABS: CHLORIDE 103 mEq/L (98-107)
[2020-01-30 02:25] LABS: ETHANOL BLOOD < 10 mg/dL
== END 2020-01-30 05:16 | disposition home or self-care (01) ==
LOC: ER 22:01
DX: G40.909 Epilepsy, unspecified, not intractable, without status epilepticus (principal); F12.10 Cannabis abuse, uncomplicated; F16.10 Hallucinogen abuse, uncomplicated; F17.200 Nicotine dependence, unspecified, uncomplicated; F10.129 Alcohol abuse with intoxication, unspecified; Z79.899 Other long term (current) drug therapy; Z88.8 Allergy status to other drugs, medicaments and biological substances; Z88.3 Allergy status to other anti-infective agents; Y90.0 Blood alcohol level of less than 20 mg/100 ml
CPT/HCPCS: 36415; 80048; 80320; 85025; 93005; 99284; G0480

== ENCOUNTER 2020-01-31 17:46 | Emergency (ER) | payer MEDICAID ==
[~2020-01-31] VITALS: Ht 180.3 cm; Wt 63.0 kg
[2020-01-31] MEDS ORDERED: SODIUM CHLORIDE 0.9% 1,000 ML IV ONE (20:39)
[2020-01-31 21:48] LABS: BASOPHILS % 0.8 % (0.0-2.0); EOSINOPHILS % 1.6 % (0.0-5.0); HEMATOCRIT. 30.3 % (42.0-52.0); HEMOGLOBIN. 10.4 g/dL (14.0-18.0); LYMPHOCYTES % 39.5 % (20.0-50.0); MEAN CORPUSCULAR HEMOGLOBIN 32.9 pg (28.0-32.0); MEAN CORPUSCULAR VOLUME 95.6 fL (80.0-94.0); MEAN PLATELET VOLUME 7.3 fl (7.4-10.4); MONOCYTES % 9.5 % (2.0-8.0); NEUTROPHILS % 48.6 % (40.0-76.0); PLATELET 213 x1000/uL (130-400); RED BLOOD CELL COUNT 3.17 mill/uL (4.7-6.1)
[2020-01-31 21:54] LABS: CHLORIDE 114 mEq/L (98-107)
[2020-01-31 21:57] LABS: ETHANOL BLOOD 122 mg/dL
[2020-01-31] MEDS ORDERED: POTASSIUM CHLORIDE 20MEQ TABLET SR PO ONE (22:30)
[2020-02-01 01:00] VITALS: BP 121/84
[2020-02-01 01:29] LABS: CLARITY URINE CLEAR (CLEAR); COLOR URINE YELLOW (YELLOW); KETONES URINE NEGATIVE (NEGATIVE); LEUKOCYTE ESTERASE URINE NEGATIVE (NEGATIVE); NITRITE URINE NEGATIVE (NEGATIVE); OCCULT BLOOD URINE NEGATIVE (NEGATIVE); PH URINE 5.5 (4.5-8.0); PROTEIN URINE NEGATIVE (NEGATIVE); SPECIFIC GRAVITY URINE 1.018 (1.005-1.030); UROBILINOGEN URINE 0.2 E.U./dL (0.2-1.0)
[2020-02-01 01:39] LABS: *AMPHETAMINES SCREEN URINE NEGATIVE (NEGATIVE); *BARBITURATES SCREEN URINE NEGATIVE (NEGATIVE); *BENZODIAZEPINES SCREEN URINE PRESUMTIVE POSITIVE (NEGATIVE); *COCAINE SCREEN URINE NEGATIVE (NEGATIVE); METHADONE URINE SCREEN NEGATIVE (NEGATIVE); OPIATES URINE SCREEN PRESUMTIVE POSITIVE (NEGATIVE)
[2020-02-01 01:40] LABS: CANNABINOID URINE SCREEN NEGATIVE (NEGATIVE); PHENCYCLIDINE URINE SCREEN PRESUMTIVE POSITIVE (NEGATIVE)
== END 2020-02-01 02:08 | disposition home or self-care (01) ==
LOC: ER 17:46
DX: R56.9 Unspecified convulsions (principal); F10.229 Alcohol dependence with intoxication, unspecified; Y90.6 Blood alcohol level of 120-199 mg/100 ml; F14.10 Cocaine abuse, uncomplicated; Z79.899 Other long term (current) drug therapy
CPT/HCPCS: 36415; 70450; 71045; 80053; 80305; 80320; 81003; 85025; 93005; 96360; 99285; J7030; G0480

== ENCOUNTER 2020-02-04 09:41 | Emergency (ER) | payer MEDICAID ==
[~2020-02-04] VITALS: Ht 177.8 cm; Wt 73.0 kg
[2020-02-04 09:45] VITALS: BP 109/67
[2020-02-04] MEDS ORDERED: IBUPROFEN 400MG TABLET PO ONE (10:15)
== END 2020-02-04 11:23 | disposition left against medical advice (07) ==
LOC: ER 09:49
DX: M54.5 Low back pain (principal); F10.20 Alcohol dependence, uncomplicated; G40.909 Epilepsy, unspecified, not intractable, without status epilepticus; F14.10 Cocaine abuse, uncomplicated; F16.10 Hallucinogen abuse, uncomplicated; Y90.9 Presence of alcohol in blood, level not specified; Z88.8 Allergy status to other drugs, medicaments and biological substances
CPT/HCPCS: 99283

== ENCOUNTER 2020-02-06 00:27 | Emergency (ER) | payer MEDICAID ==
[~2020-02-06] VITALS: Ht 177.8 cm; Wt 59.0 kg
[2020-02-06] MEDS ORDERED: CLONAZEPAM 1MG TABLET PO ONE (01:45)
[2020-02-06 03:51] VITALS: BP 125/73
== END 2020-02-06 03:48 | disposition home or self-care (01) ==
LOC: ER 00:30
DX: R56.9 Unspecified convulsions (principal); F19.10 Other psychoactive substance abuse, uncomplicated; G89.29 Other chronic pain; M54.5 Low back pain; F14.10 Cocaine abuse, uncomplicated; F16.10 Hallucinogen abuse, uncomplicated; Z88.8 Allergy status to other drugs, medicaments and biological substances; Z88.3 Allergy status to other anti-infective agents; Z88.9 Allergy status to unspecified drugs, medicaments and biological substances; Z79.899 Other long term (current) drug therapy
CPT/HCPCS: 93005; 99283

== ENCOUNTER 2020-02-14 12:03 | Emergency (ER) | payer MEDICAID ==
[~2020-02-14] VITALS: Ht 177.8 cm; Wt 71.0 kg
[2020-02-14] MEDS ORDERED: CLONAZEPAM 1MG TABLET PO ONE (12:30)
[2020-02-14] MEDS ORDERED: ACETAMINOPHEN 325MG TABLET PO ONE (12:30)
[2020-02-14 12:40] LABS: BASOPHILS % 0.9 % (0.0-2.0); EOSINOPHILS % 2.6 % (0.0-5.0); HEMATOCRIT. 34.3 % (42.0-52.0); HEMOGLOBIN. 11.5 g/dL (14.0-18.0); LYMPHOCYTES % 46.2 % (20.0-50.0); MEAN CORPUSCULAR HEMOGLOBIN 32.3 pg (28.0-32.0); MEAN CORPUSCULAR VOLUME 96.1 fL (80.0-94.0); MEAN PLATELET VOLUME 7.2 fl (7.4-10.4); MONOCYTES % 10.2 % (2.0-8.0); NEUTROPHILS % 40.1 % (40.0-76.0); PLATELET 253 x1000/uL (130-400); RED BLOOD CELL COUNT 3.57 mill/uL (4.7-6.1)
[2020-02-14 12:46] LABS: CHLORIDE 114 mEq/L (98-107)
[2020-02-14 12:50] LABS: ETHANOL BLOOD 41 mg/dL
[2020-02-14 19:15] VITALS: BP 120/76
== END 2020-02-14 18:50 | disposition home or self-care (01) ==
LOC: ER 12:08
DX: T40.991A Poisoning by other psychodysleptics [hallucinogens], accidental (unintentional), initial encounter (principal); F10.229 Alcohol dependence with intoxication, unspecified; G40.909 Epilepsy, unspecified, not intractable, without status epilepticus; F14.10 Cocaine abuse, uncomplicated; Y90.2 Blood alcohol level of 40-59 mg/100 ml; Z88.8 Allergy status to other drugs, medicaments and biological substances; Y92.488 Other paved roadways as the place of occurrence of the external cause
CPT/HCPCS: 36415; 80053; 80320; 85025; 99283; G0480

== ENCOUNTER 2020-02-17 20:05 | Emergency (ER) | payer MEDICAID ==
[~2020-02-17] VITALS: Ht 170.2 cm; Wt 65.0 kg
[2020-02-17 20:21] VITALS: BP 121/74
[2020-02-17 23:55] LABS: *AMPHETAMINES SCREEN URINE NEGATIVE (NEGATIVE); *BARBITURATES SCREEN URINE NEGATIVE (NEGATIVE); *BENZODIAZEPINES SCREEN URINE NEGATIVE (NEGATIVE); *COCAINE SCREEN URINE NEGATIVE (NEGATIVE)
[2020-02-17 23:56] LABS: CANNABINOID URINE SCREEN NEGATIVE (NEGATIVE); METHADONE URINE SCREEN NEGATIVE (NEGATIVE); OPIATES URINE SCREEN NEGATIVE (NEGATIVE); PHENCYCLIDINE URINE SCREEN PRESUMTIVE POSITIVE (NEGATIVE)
[2020-02-18 00:29] LABS: BASOPHILS % 1.4 % (0.0-2.0); EOSINOPHILS % 1.7 % (0.0-5.0); HEMATOCRIT. 37.3 % (42.0-52.0); HEMOGLOBIN. 12.7 g/dL (14.0-18.0); LYMPHOCYTES % 47.9 % (20.0-50.0); MEAN CORPUSCULAR HEMOGLOBIN 32.6 pg (28.0-32.0); MEAN CORPUSCULAR VOLUME 95.8 fL (80.0-94.0); MEAN PLATELET VOLUME 7.2 fl (7.4-10.4); MONOCYTES % 6.6 % (2.0-8.0); NEUTROPHILS % 42.4 % (40.0-76.0); PLATELET 262 x1000/uL (130-400); RED BLOOD CELL COUNT 3.89 mill/uL (4.7-6.1); RED CELL DISTRIBUTION WIDTH 15.1 % (11.6-14.6)
[2020-02-18 00:36] LABS: CHLORIDE 116 mEq/L (98-107)
== END 2020-02-18 01:31 | disposition home or self-care (01) ==
LOC: ER 20:05
DX: F16.129 Hallucinogen abuse with intoxication, unspecified (principal); E87.6 Hypokalemia; G40.909 Epilepsy, unspecified, not intractable, without status epilepticus; F14.10 Cocaine abuse, uncomplicated; Z88.8 Allergy status to other drugs, medicaments and biological substances
CPT/HCPCS: 36415; 80053; 80305; 84484; 85025; 93005; 99284

== ENCOUNTER 2020-03-06 21:38 | Emergency (ER) | payer MEDICAID ==
[~2020-03-06] VITALS: Ht 177.8 cm; Wt 68.0 kg
[2020-03-06] MEDS ORDERED: ACETAMINOPHEN 325MG TABLET PO STA (23:03)
[2020-03-06] MEDS ORDERED: CLONAZEPAM 1MG TABLET PO ONE (23:15)
[2020-03-07 01:03] LABS: BASOPHILS % 1.2 % (0.0-2.0); EOSINOPHILS % 2.5 % (0.0-5.0); HEMATOCRIT. 31.4 % (42.0-52.0); HEMOGLOBIN. 10.5 g/dL (14.0-18.0); LYMPHOCYTES % 31.6 % (20.0-50.0); MEAN CORPUSCULAR HEMOGLOBIN 32.7 pg (28.0-32.0); MEAN CORPUSCULAR VOLUME 97.9 fL (80.0-94.0); MEAN PLATELET VOLUME 8.1 fl (7.4-10.4); MONOCYTES % 9.5 % (2.0-8.0); NEUTROPHILS % 55.2 % (40.0-76.0); PLATELET 245 x1000/uL (130-400); RED BLOOD CELL COUNT 3.21 mill/uL (4.7-6.1); RED CELL DISTRIBUTION WIDTH 14.7 % (11.6-14.6)
[2020-03-07 01:10] LABS: CHLORIDE 111 mEq/L (98-107)
[2020-03-07 01:15] LABS: ETHANOL BLOOD 67 mg/dL
[2020-03-07 03:25] VITALS: BP 117/55
== END 2020-03-07 03:26 | disposition home or self-care (01) ==
LOC: ER 21:43
DX: G40.909 Epilepsy, unspecified, not intractable, without status epilepticus (principal); F10.20 Alcohol dependence, uncomplicated; D64.9 Anemia, unspecified; M79.89 Other specified soft tissue disorders; F14.10 Cocaine abuse, uncomplicated; F16.10 Hallucinogen abuse, uncomplicated; Z88.8 Allergy status to other drugs, medicaments and biological substances; Z79.899 Other long term (current) drug therapy; Y90.3 Blood alcohol level of 60-79 mg/100 ml
CPT/HCPCS: 36415; 80048; 80320; 85025; 93005; 99284; G0480

== ENCOUNTER 2020-03-10 03:33 | Emergency (ER) | payer MEDICAID ==
[~2020-03-10] VITALS: Ht 177.8 cm; Wt 73.0 kg
[2020-03-10 05:45] VITALS: BP 102/69
== END 2020-03-10 05:55 | disposition home or self-care (01) ==
LOC: EDUNIT# 03:33 → ER 04:13
DX: G40.909 Epilepsy, unspecified, not intractable, without status epilepticus (principal); F10.10 Alcohol abuse, uncomplicated; Y90.9 Presence of alcohol in blood, level not specified; F16.10 Hallucinogen abuse, uncomplicated; F14.10 Cocaine abuse, uncomplicated; Z88.8 Allergy status to other drugs, medicaments and biological substances
CPT/HCPCS: 82962; 93005; 99283

== ENCOUNTER 2020-03-23 05:53 | Emergency (ER) | payer MEDICAID ==
[~2020-03-23] VITALS: Ht 177.8 cm; Wt 73.0 kg
[2020-03-23 06:07] VITALS: BP 111/69
[2020-03-23] MEDS ORDERED: CLONAZEPAM 0.5MG TABLET PO ONE (07:30)
== END 2020-03-23 07:56 | disposition home or self-care (01) ==
LOC: ER 05:53
DX: G40.909 Epilepsy, unspecified, not intractable, without status epilepticus (principal); F14.10 Cocaine abuse, uncomplicated; F16.10 Hallucinogen abuse, uncomplicated; Z79.899 Other long term (current) drug therapy; Z48.00 Encounter for change or removal of nonsurgical wound dressing; Z88.8 Allergy status to other drugs, medicaments and biological substances; Z88.1 Allergy status to other antibiotic agents
CPT/HCPCS: 99283

== ENCOUNTER 2020-03-29 21:33 | Emergency (ER) | payer MEDICAID ==
[~2020-03-29] VITALS: Ht 177.8 cm; Wt 59.0 kg
[2020-03-29] MEDS ORDERED: CLONAZEPAM 0.5MG TABLET PO ONE (23:00)
[2020-03-29 23:44] VITALS: BP 115/68
== END 2020-03-29 23:43 | disposition home or self-care (01) ==
LOC: ER 21:33
DX: G40.909 Epilepsy, unspecified, not intractable, without status epilepticus (principal); Z91.15 Patient's noncompliance with renal dialysis
CPT/HCPCS: 93005; 99283

== ENCOUNTER 2020-04-16 10:36 | Emergency (ER) | payer MEDICAID ==
[~2020-04-16] VITALS: Ht 180.3 cm; Wt 78.0 kg
[2020-04-16 11:27] LABS: BASOPHILS % 0.6 % (0.0-2.0); EOSINOPHILS % 1.6 % (0.0-5.0); HEMATOCRIT. 35.5 % (42.0-52.0); HEMOGLOBIN. 11.9 g/dL (14.0-18.0); LYMPHOCYTES % 28.5 % (20.0-50.0); MEAN CORPUSCULAR HEMOGLOBIN 32.1 pg (28.0-32.0); MEAN PLATELET VOLUME 8.2 fl (7.4-10.4); MONOCYTES % 6.6 % (2.0-8.0); NEUTROPHILS % 62.7 % (40.0-76.0); PLATELET 252 x1000/uL (130-400); RED CELL DISTRIBUTION WIDTH 14.4 % (11.6-14.6)
[2020-04-16 11:32] LABS: CHLORIDE 114 mEq/L (98-107)
[2020-04-16 11:37] LABS: ETHANOL BLOOD 138 mg/dL
[2020-04-16 15:46] VITALS: BP 104/72
== END 2020-04-16 15:54 | disposition home or self-care (01) ==
LOC: ER 11:26
DX: T40.1X1A Poisoning by heroin, accidental (unintentional), initial encounter (principal); F14.10 Cocaine abuse, uncomplicated; F16.10 Hallucinogen abuse, uncomplicated; Z88.2 Allergy status to sulfonamides; Z88.8 Allergy status to other drugs, medicaments and biological substances; Z79.899 Other long term (current) drug therapy; Y92.9 Unspecified place or not applicable
CPT/HCPCS: 36415; 80048; 80307; 80320; 80329; 84484; 85025; 99285; G0480

== ENCOUNTER 2020-04-22 17:12 | Emergency (ER) | payer MEDICAID ==
[~2020-04-22] VITALS: Ht 172.7 cm; Wt 68.0 kg
[2020-04-22] MEDS ORDERED: SODIUM CHLORIDE 0.9% 1,000 ML IV ONE (17:45)
[2020-04-22 18:50] LABS: BASOPHILS % 1.4 % (0.0-2.0); EOSINOPHILS % 2.4 % (0.0-5.0); HEMOGLOBIN. 10.4 g/dL (14.0-18.0); LYMPHOCYTES % 32.2 % (20.0-50.0); MEAN CORPUSCULAR HEMOGLOBIN 32.5 pg (28.0-32.0); MEAN CORPUSCULAR VOLUME 96.5 fL (80.0-94.0); MEAN PLATELET VOLUME 8.4 fl (7.4-10.4); MONOCYTES % 12.2 % (2.0-8.0); NEUTROPHILS % 51.8 % (40.0-76.0); PLATELET 250 x1000/uL (130-400); RED BLOOD CELL COUNT 3.21 mill/uL (4.7-6.1); RED CELL DISTRIBUTION WIDTH 14.6 % (11.6-14.6)
[2020-04-22 18:53] LABS: CHLORIDE 110 mEq/L (98-107)
[2020-04-22 18:59] LABS: *AMPHETAMINES SCREEN URINE NEGATIVE (NEGATIVE); *BARBITURATES SCREEN URINE NEGATIVE (NEGATIVE); *BENZODIAZEPINES SCREEN URINE NEGATIVE (NEGATIVE); *COCAINE SCREEN URINE NEGATIVE (NEGATIVE)
[2020-04-22 19:00] LABS: CANNABINOID URINE SCREEN NEGATIVE (NEGATIVE); METHADONE URINE SCREEN NEGATIVE (NEGATIVE); OPIATES URINE SCREEN PRESUMTIVE POSITIVE (NEGATIVE); PHENCYCLIDINE URINE SCREEN PRESUMTIVE POSITIVE (NEGATIVE)
[2020-04-22 19:01] LABS: ETHANOL BLOOD 165 mg/dL
[2020-04-22] MEDS ORDERED: ACETAMINOPHEN 325MG TABLET PO ONE (20:30)
[2020-04-22 20:48] VITALS: BP 110/67
== END 2020-04-22 20:51 | disposition home or self-care (01) ==
LOC: ER 17:12
DX: F10.129 Alcohol abuse with intoxication, unspecified (principal); G40.909 Epilepsy, unspecified, not intractable, without status epilepticus; Z76.5 Malingerer [conscious simulation]; F14.10 Cocaine abuse, uncomplicated; F11.10 Opioid abuse, uncomplicated; F16.10 Hallucinogen abuse, uncomplicated; F17.210 Nicotine dependence, cigarettes, uncomplicated; D53.9 Nutritional anemia, unspecified; Y90.6 Blood alcohol level of 120-199 mg/100 ml; Z88.8 Allergy status to other drugs, medicaments and biological substances
CPT/HCPCS: 36415; 70450; 80053; 80305; 80320; 85025; 93005; 96360; 96361; 99285; J7030; G0480

== ENCOUNTER 2020-04-23 20:30 | Emergency (ER) | payer MEDICAID ==
[~2020-04-23] VITALS: Ht 175.3 cm; Wt 71.0 kg
[2020-04-24] MEDS ORDERED: CLONAZEPAM 1MG TABLET PO ONE (02:15)
[2020-04-24 03:20] VITALS: BP 132/84
== END 2020-04-24 03:26 | disposition home or self-care (01) ==
LOC: ER 20:30
DX: Z76.0 Encounter for issue of repeat prescription (principal); G40.909 Epilepsy, unspecified, not intractable, without status epilepticus; F14.10 Cocaine abuse, uncomplicated; F11.10 Opioid abuse, uncomplicated; F16.10 Hallucinogen abuse, uncomplicated; Z59.0 Homelessness; Z88.8 Allergy status to other drugs, medicaments and biological substances
CPT/HCPCS: 99283

== ENCOUNTER 2020-04-25 00:28 | Emergency (ER) | payer MEDICAID ==
[~2020-04-25] VITALS: Ht 175.3 cm; Wt 73.0 kg
[2020-04-25] MEDS ORDERED: TRIAMCINOLONE ACETONIDE 0.1% CREAM 15GM TOP SCH (02:30)
[2020-04-25] MEDS ORDERED: TRIAMCINOLONE ACETONIDE 0.5% CREAM 15GM TOP SCH ×2 (02:30→09:00)
[2020-04-25 06:00] VITALS: BP 112/70
== END 2020-04-25 06:00 | disposition home or self-care (01) ==
LOC: ER 00:28
DX: F10.229 Alcohol dependence with intoxication, unspecified (principal); Y90.0 Blood alcohol level of less than 20 mg/100 ml; F14.10 Cocaine abuse, uncomplicated; F11.10 Opioid abuse, uncomplicated; Z79.899 Other long term (current) drug therapy; Z88.1 Allergy status to other antibiotic agents
CPT/HCPCS: 99285

== ENCOUNTER 2020-04-25 09:53 | Emergency (ER) | payer MEDICAID ==
[~2020-04-25] VITALS: Ht 180.3 cm; Wt 77.0 kg
[2020-04-25] MEDS ORDERED: CLONAZEPAM 0.5MG TABLET PO ONE (10:45)
[2020-04-25 11:11] LABS: BASOPHILS % 0.2 % (0.0-2.0); EOSINOPHILS % 1.3 % (0.0-5.0); HEMATOCRIT. 33.3 % (42.0-52.0); LYMPHOCYTES % 31.6 % (20.0-50.0); MEAN CORPUSCULAR HEMOGLOBIN 32.3 pg (28.0-32.0); MEAN CORPUSCULAR VOLUME 97.4 fL (80.0-94.0); MEAN PLATELET VOLUME 7.6 fl (7.4-10.4); MONOCYTES % 8.3 % (2.0-8.0); NEUTROPHILS % 58.6 % (40.0-76.0); PLATELET 266 x1000/uL (130-400); RED BLOOD CELL COUNT 3.42 mill/uL (4.7-6.1); RED CELL DISTRIBUTION WIDTH 15.3 % (11.6-14.6)
[2020-04-25 11:18] LABS: CHLORIDE 114 mEq/L (98-107)
[2020-04-25 11:21] LABS: ETHANOL BLOOD 243 mg/dL
[2020-04-25 11:37] LABS: CLARITY URINE CLEAR (CLEAR); COLOR URINE YELLOW (YELLOW); KETONES URINE NEGATIVE (NEGATIVE); LEUKOCYTE ESTERASE URINE NEGATIVE (NEGATIVE); NITRITE URINE NEGATIVE (NEGATIVE); OCCULT BLOOD URINE NEGATIVE (NEGATIVE); PROTEIN URINE TRACE (NEGATIVE); SPECIFIC GRAVITY URINE 1.015 (1.005-1.030); UROBILINOGEN URINE 0.2 E.U./dL (0.2-1.0)
[2020-04-25 11:57] LABS: OPIATES URINE SCREEN NEGATIVE (NEGATIVE); PHENCYCLIDINE URINE SCREEN PRESUMTIVE POSITIVE (NEGATIVE)
[2020-04-25 11:58] LABS: *AMPHETAMINES SCREEN URINE NEGATIVE (NEGATIVE); *BARBITURATES SCREEN URINE NEGATIVE (NEGATIVE); *BENZODIAZEPINES SCREEN URINE NEGATIVE (NEGATIVE); *COCAINE SCREEN URINE NEGATIVE (NEGATIVE); CANNABINOID URINE SCREEN NEGATIVE (NEGATIVE); METHADONE URINE SCREEN NEGATIVE (NEGATIVE)
[2020-04-25 18:08] VITALS: BP 159/86
== END 2020-04-25 18:10 | disposition home or self-care (01) ==
LOC: ER 10:05
DX: T51.0X1A Toxic effect of ethanol, accidental (unintentional), initial encounter (principal); Y92.89 Other specified places as the place of occurrence of the external cause; Z79.899 Other long term (current) drug therapy; Z88.8 Allergy status to other drugs, medicaments and biological substances; Z88.1 Allergy status to other antibiotic agents
CPT/HCPCS: 36415; 80053; 80305; 80320; 81003; 85025; 93005; 99285; G0480

== ENCOUNTER 2020-04-28 14:08 | Emergency (ER) | payer MEDICAID ==
[~2020-04-28] VITALS: Ht 180.3 cm; Wt 90.0 kg
[2020-04-28 14:09] VITALS: BP 110/83
== END 2020-04-28 18:38 | disposition left against medical advice (07) ==
LOC: ER 14:08
DX: S00.81XA Abrasion of other part of head, initial encounter (principal); G40.909 Epilepsy, unspecified, not intractable, without status epilepticus; G93.49 Other encephalopathy; W01.0XXA Fall on same level from slipping, tripping and stumbling without subsequent striking against object, initial encounter; Y93.89 Activity, other specified; Y92.488 Other paved roadways as the place of occurrence of the external cause
CPT/HCPCS: 93005; 99283

== ENCOUNTER 2020-05-07 05:17 | Emergency (ER) | payer MEDICAID ==
[~2020-05-07] VITALS: Ht 180.3 cm; Wt 90.0 kg
[2020-05-07] MEDS ORDERED: CLONAZEPAM 1MG TABLET PO ONE (07:00)
[2020-05-07 07:20] VITALS: BP 145/84
== END 2020-05-07 07:21 | disposition home or self-care (01) ==
LOC: ER 06:11
DX: Z76.0 Encounter for issue of repeat prescription (principal); F17.200 Nicotine dependence, unspecified, uncomplicated; Z59.0 Homelessness; Z88.1 Allergy status to other antibiotic agents; Z88.8 Allergy status to other drugs, medicaments and biological substances; Z88.9 Allergy status to unspecified drugs, medicaments and biological substances; Z79.899 Other long term (current) drug therapy
CPT/HCPCS: 99283

== ENCOUNTER 2020-05-14 14:14 | Emergency (ER) | payer MEDICAID ==
[~2020-05-14] VITALS: Ht 175.3 cm; Wt 80.0 kg
[2020-05-14 14:21] VITALS: BP 140/88
[2020-05-14 15:03] LABS: BASOPHILS % 0.6 % (0.0-2.0); EOSINOPHILS % 1.6 % (0.0-5.0); HEMATOCRIT. 31.6 % (42.0-52.0); HEMOGLOBIN. 10.7 g/dL (14.0-18.0); MEAN CORPUSCULAR VOLUME 97.4 fL (80.0-94.0); MEAN PLATELET VOLUME 7.6 fl (7.4-10.4); MONOCYTES % 8.1 % (2.0-8.0); NEUTROPHILS % 61.7 % (40.0-76.0); PLATELET 162 x1000/uL (130-400); RED BLOOD CELL COUNT 3.24 mill/uL (4.7-6.1); RED CELL DISTRIBUTION WIDTH 16.1 % (11.6-14.6)
[2020-05-14 15:09] LABS: CHLORIDE 114 mEq/L (98-107)
[2020-05-14] MEDS ORDERED: POTASSIUM CHLORIDE 20MEQ TABLET SR PO ONE (16:00)
== END 2020-05-14 17:26 | disposition left against medical advice (07) ==
LOC: ER 14:14
DX: R53.1 Weakness (principal); E87.6 Hypokalemia; F11.10 Opioid abuse, uncomplicated; Z88.2 Allergy status to sulfonamides; Z88.8 Allergy status to other drugs, medicaments and biological substances; Z88.9 Allergy status to unspecified drugs, medicaments and biological substances; Z79.899 Other long term (current) drug therapy
CPT/HCPCS: 36415; 80048; 85025; 99283

== ENCOUNTER 2020-05-19 20:47 | Emergency (ER) | payer MEDICAID ==
[~2020-05-19] VITALS: Ht 182.9 cm; Wt 90.0 kg
[2020-05-19 20:55] VITALS: BP 118/71
== END 2020-05-20 00:47 | disposition home or self-care (01) ==
LOC: ER 20:54
DX: Z76.0 Encounter for issue of repeat prescription (principal); G40.909 Epilepsy, unspecified, not intractable, without status epilepticus; Z91.19 Patient's noncompliance with other medical treatment and regimen; F10.20 Alcohol dependence, uncomplicated; Y90.9 Presence of alcohol in blood, level not specified
CPT/HCPCS: 99283

== ENCOUNTER 2020-05-20 19:39 | Emergency (ER) | payer MEDICAID ==
[~2020-05-20] VITALS: Ht 177.8 cm; Wt 82.0 kg
[2020-05-20 19:49] VITALS: BP 144/86
[2020-05-20] MEDS ORDERED: ACETAMINOPHEN 325MG TABLET PO ONE (20:45)
[2020-05-20 21:08] LABS: CLARITY URINE CLEAR (CLEAR); COLOR URINE YELLOW (YELLOW); KETONES URINE NEGATIVE (NEGATIVE); LEUKOCYTE ESTERASE URINE NEGATIVE (NEGATIVE); NITRITE URINE NEGATIVE (NEGATIVE); OCCULT BLOOD URINE NEGATIVE (NEGATIVE); PH URINE 6.5 (4.5-8.0); PROTEIN URINE NEGATIVE (NEGATIVE); SPECIFIC GRAVITY URINE 1.007 (1.005-1.030); UROBILINOGEN URINE 0.2 E.U./dL (0.2-1.0)
[2020-05-20 21:19] LABS: CANNABINOID URINE SCREEN NEGATIVE (NEGATIVE)
[2020-05-20 21:20] LABS: *AMPHETAMINES SCREEN URINE NEGATIVE (NEGATIVE); *BARBITURATES SCREEN URINE NEGATIVE (NEGATIVE); *BENZODIAZEPINES SCREEN URINE NEGATIVE (NEGATIVE); *COCAINE SCREEN URINE PRESUMTIVE POSITIVE (NEGATIVE); METHADONE URINE SCREEN NEGATIVE (NEGATIVE); OPIATES URINE SCREEN PRESUMTIVE POSITIVE (NEGATIVE)
[2020-05-20 21:21] LABS: PHENCYCLIDINE URINE SCREEN PRESUMTIVE POSITIVE (NEGATIVE)
[2020-05-21 00:46] LABS: BASOPHILS % 1.1 % (0.0-2.0); HEMATOCRIT. 34.5 % (42.0-52.0); HEMOGLOBIN. 11.3 g/dL (14.0-18.0); LYMPHOCYTES % 39.5 % (20.0-50.0); MEAN CORPUSCULAR HEMOGLOBIN 32.4 pg (28.0-32.0); MEAN CORPUSCULAR VOLUME 98.6 fL (80.0-94.0); MEAN PLATELET VOLUME 8.3 fl (7.4-10.4); MONOCYTES % 10.9 % (2.0-8.0); NEUTROPHILS % 47.5 % (40.0-76.0); PLATELET 263 x1000/uL (130-400); RED CELL DISTRIBUTION WIDTH 16.7 % (11.6-14.6)
[2020-05-21 00:47] LABS: CHLORIDE 110 mEq/L (98-107)
[2020-05-21 00:50] LABS: ETHANOL BLOOD 53 mg/dL
== END 2020-05-21 02:08 | disposition home or self-care (01) ==
LOC: ER 19:39
DX: F16.10 Hallucinogen abuse, uncomplicated (principal); R56.9 Unspecified convulsions; F10.10 Alcohol abuse, uncomplicated; F14.10 Cocaine abuse, uncomplicated; F15.10 Other stimulant abuse, uncomplicated; F19.10 Other psychoactive substance abuse, uncomplicated; Z88.2 Allergy status to sulfonamides; Z88.8 Allergy status to other drugs, medicaments and biological substances; Z88.9 Allergy status to unspecified drugs, medicaments and biological substances; Z91.19 Patient's noncompliance with other medical treatment and regimen; Y90.2 Blood alcohol level of 40-59 mg/100 ml
CPT/HCPCS: 36415; 73130; 73610; 80048; 80305; 80320; 81003; 85025; 99285; G0480

== ENCOUNTER 2020-05-22 10:20 | Emergency (ER) | payer MEDICAID ==
[~2020-05-22] VITALS: Ht 182.9 cm; Wt 82.0 kg
[2020-05-22 10:23] VITALS: BP 140/80
[2020-05-22] MEDS ORDERED: ACETAMINOPHEN 325MG TABLET PO ONE (11:45)
== END 2020-05-22 13:08 | disposition home or self-care (01) ==
LOC: ER 10:42
DX: R60.0 Localized edema (principal); F10.129 Alcohol abuse with intoxication, unspecified; G40.909 Epilepsy, unspecified, not intractable, without status epilepticus; F14.10 Cocaine abuse, uncomplicated; F15.10 Other stimulant abuse, uncomplicated; F11.10 Opioid abuse, uncomplicated; F16.10 Hallucinogen abuse, uncomplicated; Z88.8 Allergy status to other drugs, medicaments and biological substances; Y90.9 Presence of alcohol in blood, level not specified
CPT/HCPCS: 73590; 93005; 99283

== ENCOUNTER 2020-06-19 20:11 | Emergency (ER) | payer MEDICAID ==
[~2020-06-19] VITALS: Ht 177.8 cm; Wt 78.0 kg
[2020-06-19] MEDS ORDERED: IBUPROFEN 600MG TABLET PO NR (22:48)
[2020-06-19] MEDS ORDERED: CLONAZEPAM 1MG TABLET PO NR (22:54)
[2020-06-19 23:46] VITALS: BP 121/66
== END 2020-06-20 00:14 | disposition home or self-care (01) ==
LOC: ER 20:11
DX: L03.116 Cellulitis of left lower limb (principal); G40.909 Epilepsy, unspecified, not intractable, without status epilepticus; F14.10 Cocaine abuse, uncomplicated; F15.10 Other stimulant abuse, uncomplicated; F16.10 Hallucinogen abuse, uncomplicated; Z88.8 Allergy status to other drugs, medicaments and biological substances
CPT/HCPCS: 99283

== ENCOUNTER 2020-06-26 05:29 | Emergency (ER) | payer MEDICAID ==
[~2020-06-26] VITALS: Ht 177.8 cm; Wt 78.0 kg
[2020-06-26] MEDS ORDERED: BACITRACIN 15GM TUBE TOP ONE (06:45)
[2020-06-26] MEDS ORDERED: CLONAZEPAM 0.5MG TABLET PO ONE (06:45)
[2020-06-26] MEDS ORDERED: DOXYCYCLINE HYCLATE 100MG CAPSULE PO ONE (06:45)
[2020-06-26] MEDS ORDERED: TETANUS, DIPHTHERIA, PERTUSSIS VAC/PF 0.5ML (>7YR OLD) IM ONE (07:30)
[2020-06-26 08:38] VITALS: BP 141/74
== END 2020-06-26 08:40 | disposition home or self-care (01) ==
LOC: ER 05:29
DX: L03.116 Cellulitis of left lower limb (principal); G40.909 Epilepsy, unspecified, not intractable, without status epilepticus; F16.10 Hallucinogen abuse, uncomplicated; F14.10 Cocaine abuse, uncomplicated; F15.10 Other stimulant abuse, uncomplicated; Z88.8 Allergy status to other drugs, medicaments and biological substances
CPT/HCPCS: 90715; 93970; 99284

== ENCOUNTER 2020-06-28 09:07 | Emergency (ER) | payer MEDICAID ==
[~2020-06-28] VITALS: Ht 185.4 cm; Wt 82.0 kg
[2020-06-28] MEDS ORDERED: CLONAZEPAM 0.5MG TABLET PO ONE (10:00)
[2020-06-28] MEDS ORDERED: BACITRACIN 15GM TUBE TOP ONE (10:00)
[2020-06-28] MEDS ORDERED: BACITRACIN 15GM TUBE TOP SCH (10:30)
[2020-06-28] MEDS ORDERED: CLONAZEPAM 0.5MG TABLET PO SCH (10:30)
[2020-06-28] MEDS ORDERED: BACITRACIN ZINC OINT UDPKT TOP SCH (10:45)
[2020-06-28] MEDS ORDERED: TOPUD MT (12:08)
[2020-06-28 12:18] VITALS: BP 110/78
== END 2020-06-28 12:19 | disposition home or self-care (01) ==
LOC: ER 09:07
DX: S01.01XA Laceration without foreign body of scalp, initial encounter (principal); G40.909 Epilepsy, unspecified, not intractable, without status epilepticus; F14.10 Cocaine abuse, uncomplicated; F15.10 Other stimulant abuse, uncomplicated; F16.10 Hallucinogen abuse, uncomplicated; Z88.0 Allergy status to penicillin; Y00.XXXA Assault by blunt object, initial encounter; Y93.89 Activity, other specified; Y92.488 Other paved roadways as the place of occurrence of the external cause
CPT/HCPCS: 12001; 70450; 99284; Z7610

== ENCOUNTER 2020-07-01 23:25 | Emergency (ER) | payer MEDICAID ==
[~2020-07-01] VITALS: Ht 177.8 cm; Wt 69.0 kg
[~2020-07-01 23:25] MED LIST changes: +TOPUD MT
[2020-07-02] MEDS: ACETAMINOPHEN 500MG TABLET PO ONE (00:48)
[2020-07-02] MEDS: DIPHENHYDRAMINE 25MG CAPSULE PO ONE (00:48)
[2020-07-02 02:16] VITALS: BP 118/79
== END 2020-07-02 02:48 | disposition home or self-care (01) ==
LOC: ER 23:32
DX: M79.605 Pain in left leg (principal); F14.10 Cocaine abuse, uncomplicated; F15.10 Other stimulant abuse, uncomplicated; F11.10 Opioid abuse, uncomplicated; F16.10 Hallucinogen abuse, uncomplicated; Z88.2 Allergy status to sulfonamides; Z88.8 Allergy status to other drugs, medicaments and biological substances; Z79.899 Other long term (current) drug therapy; Z86.59 Personal history of other mental and behavioral disorders; Z87.2 Personal history of diseases of the skin and subcutaneous tissue
CPT/HCPCS: 99282; Q0163

== ENCOUNTER 2020-07-06 06:32 | Emergency (ER) | payer MEDICAID ==
[~2020-07-06] VITALS: Ht 177.8 cm; Wt 73.0 kg
[2020-07-06] MEDS ORDERED: CLONAZEPAM 0.5MG TABLET PO ONE (07:45)
[2020-07-06 08:20] VITALS: BP 141/76
== END 2020-07-06 08:21 | disposition home or self-care (01) ==
LOC: ER 06:32
DX: S01.01XD Laceration without foreign body of scalp, subsequent encounter (principal); F14.10 Cocaine abuse, uncomplicated; F12.10 Cannabis abuse, uncomplicated; F15.10 Other stimulant abuse, uncomplicated; F11.10 Opioid abuse, uncomplicated; F16.10 Hallucinogen abuse, uncomplicated; Z79.899 Other long term (current) drug therapy; Z88.8 Allergy status to other drugs, medicaments and biological substances; Z88.2 Allergy status to sulfonamides; Z48.02 Encounter for removal of sutures; X58.XXXD Exposure to other specified factors, subsequent encounter
CPT/HCPCS: 99282

== ENCOUNTER 2020-07-21 11:37 | Emergency (ER) | payer MEDICAID ==
[~2020-07-21] VITALS: Ht 177.8 cm; Wt 73.0 kg
[2020-07-21 11:46] VITALS: BP 141/70
[2020-07-21] MEDS ORDERED: CLONAZEPAM 1MG TABLET PO ONE ×2 (12:15→12:45)
[2020-07-21] MEDS ORDERED: ACETAMINOPHEN 325MG TABLET PO ONE (12:15)
[2020-07-21] MEDS ORDERED: CEPHALEXIN 250MG CAPSULE PO ONE (12:45)
[2020-07-21] MEDS ORDERED: SULFAMETHOXAZOLE/TRIMETHOPRIM 800/160MG TABLET PO ONE (12:45)
== END 2020-07-21 13:40 | disposition home or self-care (01) ==
LOC: ER 11:37
DX: L02.414 Cutaneous abscess of left upper limb (principal); F11.10 Opioid abuse, uncomplicated; F15.10 Other stimulant abuse, uncomplicated; F14.10 Cocaine abuse, uncomplicated; G40.909 Epilepsy, unspecified, not intractable, without status epilepticus; Z88.8 Allergy status to other drugs, medicaments and biological substances
CPT/HCPCS: 99284

== ENCOUNTER 2021-07-08 19:41 | Emergency (ER) | payer MEDICAID ==
[~2021-07-08] VITALS: Ht 170.2 cm; Wt 69.0 kg
[2021-07-08 19:56] VITALS: BP 142/87
[2021-07-08 20:43] LABS: BASOPHILS % 0.6 % (0.0-2.0); EOSINOPHILS % 1.6 % (0.0-5.0); HEMATOCRIT. 34.7 % (42.0-52.0); HEMOGLOBIN. 11.3 g/dL (14.0-18.0); LYMPHOCYTES % 25.2 % (20.0-50.0); MEAN CORPUSCULAR HEMOGLOBIN 28.1 pg (28.0-32.0); MEAN CORPUSCULAR VOLUME 86.7 fL (80.0-94.0); MEAN PLATELET VOLUME 7.8 fl (7.4-10.4); MONOCYTES % 8.8 % (2.0-8.0); NEUTROPHILS % 63.8 % (40.0-76.0); PLATELET 284 x1000/uL (130-400); RED CELL DISTRIBUTION WIDTH 16.6 % (11.6-14.6)
[2021-07-08 20:52] LABS: CLARITY URINE CLEAR (CLEAR); COLOR URINE DARK YELLOW (YELLOW); KETONES URINE TRACE (NEGATIVE); LEUKOCYTE ESTERASE URINE 2+ (NEGATIVE); NITRITE URINE NEGATIVE (NEGATIVE); OCCULT BLOOD URINE NEGATIVE (NEGATIVE); PROTEIN URINE TRACE (NEGATIVE); SPECIFIC GRAVITY URINE 1.021 (1.005-1.030)
[2021-07-08 20:53] LABS: CHLORIDE 109 mEq/L (98-107)
[2021-07-08 20:57] LABS: ETHANOL BLOOD < 10 mg/dL
[2021-07-08 21:02] LABS: *AMPHETAMINES SCREEN URINE NEGATIVE (NEGATIVE); *BARBITURATES SCREEN URINE NEGATIVE (NEGATIVE); *BENZODIAZEPINES SCREEN URINE NEGATIVE (NEGATIVE); *COCAINE SCREEN URINE PRESUMTIVE POSITIVE (NEGATIVE); METHADONE URINE SCREEN NEGATIVE (NEGATIVE); OPIATES URINE SCREEN PRESUMTIVE POSITIVE (NEGATIVE)
[2021-07-08 21:03] LABS: CANNABINOID URINE SCREEN NEGATIVE (NEGATIVE); PHENCYCLIDINE URINE SCREEN PRESUMTIVE POSITIVE (NEGATIVE)
== END 2021-07-08 23:30 | disposition home or self-care (01) ==
LOC: ER 19:41
DX: F11.20 Opioid dependence, uncomplicated (principal); Z88.8 Allergy status to other drugs, medicaments and biological substances; Z86.59 Personal history of other mental and behavioral disorders; Z98.890 Other specified postprocedural states
CPT/HCPCS: 36415; 80048; 80305; 80307; 80320; 80329; 81003; 85025; 99283; G0480

== ENCOUNTER 2021-07-19 23:53 | Emergency (ER) | payer MEDICAID ==
[~2021-07-19] VITALS: Ht 177.8 cm; Wt 60.0 kg
[2021-07-20] MEDS ORDERED: ACETAMINOPHEN 325MG TABLET PO ONE (01:00)
[2021-07-20] MEDS ORDERED: LIDOCAINE HCL/PF 1% 10 MG/ML 5ML VIAL INFIL ONE (01:00)
[2021-07-20] MEDS ORDERED: BACITRACIN ZINC OINT UDPKT TOP ONE (01:00)
[2021-07-20] MEDS ORDERED: LIDOCAINE HCL 1% 10 MG/ML 10ML VIAL INJ NR (02:00)
[2021-07-20] MEDS ORDERED: CLONAZEPAM 1MG TABLET PO ONE (02:30)
[2021-07-20] MEDS ORDERED: SULF1TAB48 MT (02:37)
[2021-07-20] MEDS ORDERED: CLON2TAB21 MT (02:37)
[2021-07-20] MEDS ORDERED: CEPH500T MT (02:37)
[2021-07-20 02:48] VITALS: BP 140/87
== END 2021-07-20 03:11 | disposition home or self-care (01) ==
LOC: ER 23:53
DX: L03.115 Cellulitis of right lower limb (principal); L02.415 Cutaneous abscess of right lower limb; G40.909 Epilepsy, unspecified, not intractable, without status epilepticus; Z88.0 Allergy status to penicillin
CPT/HCPCS: 10060; 99283; J3490

== ENCOUNTER 2021-08-12 00:15 | Emergency (ER) | payer MEDICAID ==
[~2021-08-12] VITALS: Ht 177.8 cm; Wt 59.0 kg
[~2021-08-12 00:15] MED LIST changes: +CEPH500T MT; +CLON2TAB21 MT; +SULF1TAB48 MT
[2021-08-12 03:49] VITALS: BP 103/53
[2021-08-13] MEDS ORDERED: TIMO5DRO27 EACHEYE (05:29)
[2021-08-13] MEDS ORDERED: MESA800T MT (05:29)
== END 2021-08-12 04:06 | disposition home or self-care (01) ==
LOC: ER 00:15
DX: R56.9 Unspecified convulsions (principal); F17.290 Nicotine dependence, other tobacco product, uncomplicated; Z79.899 Other long term (current) drug therapy; Z91.14 Patient's other noncompliance with medication regimen; M79.606 Pain in leg, unspecified
CPT/HCPCS: 99281; 99406

== ENCOUNTER 2021-08-13 04:52 | Emergency (ER) | payer MEDICAID ==
[~2021-08-13] VITALS: Ht 177.8 cm; Wt 64.0 kg
[2021-08-13] MEDS ORDERED: TIMO5DRO27 EACHEYE (05:29)
[2021-08-13] MEDS ORDERED: MESA800T MT (05:29)
[2021-08-13] MEDS ORDERED: CLONAZEPAM 1MG TABLET PO ONE (05:30)
[2021-08-13 06:06] VITALS: BP 112/85
== END 2021-08-13 06:07 | disposition home or self-care (01) ==
LOC: ER 04:52
DX: Z76.0 Encounter for issue of repeat prescription (principal); G40.909 Epilepsy, unspecified, not intractable, without status epilepticus; F14.10 Cocaine abuse, uncomplicated; F11.10 Opioid abuse, uncomplicated; F16.10 Hallucinogen abuse, uncomplicated; H40.9 Unspecified glaucoma; Z88.8 Allergy status to other drugs, medicaments and biological substances; Z87.19 Personal history of other diseases of the digestive system
CPT/HCPCS: 99283

== ENCOUNTER 2021-11-28 20:16 | Inpatient (IN) | payer MEDICAID, OTHER ==
[~2021-11-28] VITALS: Ht 177.8 cm; Wt 68.0 kg
[~2021-11-28 20:16] MED LIST changes: +TIMO5DRO27 EACHEYE
[2021-11-28] MEDS ORDERED: VANCOMYCIN 1G PREMIX 200 ML IV ONE (22:15)
[2021-11-28] MEDS ORDERED: CEFTRIAXONE 1 G PREMIX 50 ML IV ONE (22:15)
[2021-11-28] MEDS ORDERED: LIDOCAINE HCL/EPINEPHRINE 1%-EPI 1:100,000 50 ML VIAL INFIL ONE (22:15)
[2021-11-29] MEDS ORDERED: LIDOCAINE HCL/EPINEPHRINE 1%-EPI 1:100,000 50 ML VIAL INFIL ONE (00:30)
[2021-11-29 00:31] LABS: BASOPHILS % 0.7 % (0.0-2.0); EOSINOPHILS % 0.1 % (0.0-5.0); HEMATOCRIT. 32.2 % (42.0-52.0); HEMOGLOBIN. 10.7 g/dL (14.0-18.0); LYMPHOCYTES % 16.6 % (20.0-50.0); MEAN CORPUSCULAR HEMOGLOBIN 29.2 pg (28.0-32.0); MEAN CORPUSCULAR VOLUME 87.8 fL (80.0-94.0); MEAN PLATELET VOLUME 8.1 fl (7.4-10.4); MONOCYTES % 9.7 % (2.0-8.0); NEUTROPHILS % 72.9 % (40.0-76.0); PLATELET 260 x1000/uL (130-400); RED BLOOD CELL COUNT 3.66 mill/uL (4.7-6.1); RED CELL DISTRIBUTION WIDTH 15.5 % (11.6-14.6)
[2021-11-29 00:35] LABS: CHLORIDE 99 mEq/L (98-107)
[2021-11-29] MEDS ORDERED: CEFTRIAXONE 1 G PREMIX 50 ML IV SCH (03:30)
[2021-11-30 08:00] VITALS: BP 115/60
== END 2021-11-30 08:30 | disposition left against medical advice (07) | DRG 383 ==
LOC: ER 20:16 → MICUSO 11-29 00:52
PROVIDERS: ADMIT Internal Medicine; ATTEND Internal Medicine
DX: L03.116 Cellulitis of left lower limb (principal); E44.1 Mild protein-calorie malnutrition; D64.9 Anemia, unspecified; E87.1 Hypo-osmolality and hyponatremia; F17.210 Nicotine dependence, cigarettes, uncomplicated; F14.10 Cocaine abuse, uncomplicated; K51.90 Ulcerative colitis, unspecified, without complications; F11.10 Opioid abuse, uncomplicated; Z87.19 Personal history of other diseases of the digestive system; Z88.8 Allergy status to other drugs, medicaments and biological substances; Z72.89 Other problems related to lifestyle; Z68.21 Body mass index [BMI] 21.0-21.9, adult; Z71.51 Drug abuse counseling and surveillance of drug abuser
CPT/HCPCS: 36415; 73590; 80053; 83605; 85025; 85651; 86140; 87070; 87077; 96365; 99291; J0696; J3370

== ENCOUNTER 2021-12-05 12:51 | Emergency (ER) | payer OTHER ==
[~2021-12-05] VITALS: Ht 172.7 cm; Wt 61.0 kg
[2021-12-05 13:11] VITALS: BP 106/61
[2021-12-05] MEDS ORDERED: MESA800T MT (13:35)
[2021-12-05] MEDS ORDERED: CEPH500T MT (13:35)
[2021-12-05] MEDS ORDERED: CLON2TAB21 MT (13:35)
[2021-12-05] MEDS ORDERED: SULF1TAB48 MT (13:35)
[2021-12-05] MEDS ORDERED: IBUP-2029 MT (13:36)
[2021-12-05] MEDS ORDERED: CEPHALEXIN 250MG CAPSULE PO ONE (13:45)
[2021-12-05] MEDS ORDERED: SULFAMETHOXAZOLE/TRIMETHOPRIM 800/160MG TABLET PO ONE (13:45)
== END 2021-12-05 14:26 | disposition home or self-care (01) ==
LOC: ER 12:51
DX: L03.116 Cellulitis of left lower limb (principal); G40.909 Epilepsy, unspecified, not intractable, without status epilepticus; Z79.899 Other long term (current) drug therapy; Z88.8 Allergy status to other drugs, medicaments and biological substances
CPT/HCPCS: 99283

== ENCOUNTER 2021-12-14 05:43 | Emergency (ER) | payer OTHER ==
[~2021-12-14] VITALS: Ht 177.8 cm; Wt 60.0 kg
[~2021-12-14 05:43] MED LIST changes: +IBUP-2029 MT
[2021-12-14 05:54] VITALS: BP 134/92
[2021-12-14] MEDS ORDERED: ACETAMINOPHEN 325MG TABLET PO ONE (06:30)
== END 2021-12-14 09:18 | disposition home or self-care (01) ==
LOC: ER 05:43
DX: M79.10 Myalgia, unspecified site (principal); G40.909 Epilepsy, unspecified, not intractable, without status epilepticus; F14.10 Cocaine abuse, uncomplicated; F15.10 Other stimulant abuse, uncomplicated; F11.10 Opioid abuse, uncomplicated; F16.10 Hallucinogen abuse, uncomplicated; Z20.822 Contact with and (suspected) exposure to COVID-19; Z59.00 Homelessness unspecified; Z87.11 Personal history of peptic ulcer disease; Z88.8 Allergy status to other drugs, medicaments and biological substances
CPT/HCPCS: 87426; 99283; C9803

== ENCOUNTER 2022-02-03 16:42 | Emergency (ER) | payer OTHER ==
[~2022-02-03] VITALS: Ht 170.2 cm; Wt 66.0 kg
[2022-02-03] MEDS ORDERED: SODIUM CHLORIDE 0.9% 1,000 ML IV ONE (19:00)
[2022-02-03 19:39] LABS: CHLORIDE 111 mEq/L (98-107)
[2022-02-03 19:43] LABS: ETHANOL BLOOD < 10 mg/dL
[2022-02-03 19:45] LABS: BASOPHILS % 0.8 % (0.0-2.0); EOSINOPHILS % 2.7 % (0.0-5.0); HEMATOCRIT. 34.2 % (42.0-52.0); HEMOGLOBIN. 10.8 g/dL (14.0-18.0); LYMPHOCYTES % 31.2 % (20.0-50.0); MEAN CORPUSCULAR HEMOGLOBIN 29.5 pg (28.0-32.0); MEAN CORPUSCULAR VOLUME 93.3 fL (80.0-94.0); MONOCYTES % 9.1 % (2.0-8.0); NEUTROPHILS % 56.2 % (40.0-76.0); RED BLOOD CELL COUNT 3.67 mill/uL (4.7-6.1); RED CELL DISTRIBUTION WIDTH 16.3 % (11.6-14.6)
[2022-02-03 20:00] VITALS: BP 119/72
[2022-02-03 20:08] LABS: MEAN PLATELET VOLUME 8.3 fl (7.4-10.4); PLATELET 259 x1000/uL (130-400)
== END 2022-02-03 22:00 | disposition home or self-care (01) ==
LOC: ER 16:42
DX: F10.10 Alcohol abuse, uncomplicated (principal); F14.10 Cocaine abuse, uncomplicated; F15.10 Other stimulant abuse, uncomplicated; F16.10 Hallucinogen abuse, uncomplicated; F11.20 Opioid dependence, uncomplicated; Z88.8 Allergy status to other drugs, medicaments and biological substances; Z79.899 Other long term (current) drug therapy; Z98.890 Other specified postprocedural states; Z86.59 Personal history of other mental and behavioral disorders; Y90.0 Blood alcohol level of less than 20 mg/100 ml
CPT/HCPCS: 36415; 80053; 80320; 85025; 93005; 96360; 99284; J7030; G0480

== ENCOUNTER 2022-06-06 01:36 | Emergency (ER) | payer MEDICAID, OTHER ==
[~2022-06-06] VITALS: Ht 177.8 cm; Wt 61.0 kg
[2022-06-06 01:55] VITALS: BP 162/100
[2022-06-06] MEDS ORDERED: CLONAZEPAM 0.5MG TABLET PO ONE (10:15)
[2022-06-06] MEDS ORDERED: CEPH500C2 MT (10:26)
[2022-06-06] MEDS ORDERED: CLON0.252 MT (10:26)
== END 2022-06-06 12:06 | disposition home or self-care (01) ==
LOC: ER 02:07
DX: G40.909 Epilepsy, unspecified, not intractable, without status epilepticus (principal); L97.129 Non-pressure chronic ulcer of left thigh with unspecified severity; Z98.890 Other specified postprocedural states; Z88.8 Allergy status to other drugs, medicaments and biological substances; Z79.899 Other long term (current) drug therapy
CPT/HCPCS: 99283

== ENCOUNTER 2022-07-05 11:07 | Emergency (ER) | payer MEDICAID ==
[~2022-07-05] VITALS: Ht 177.8 cm; Wt 70.0 kg
[~2022-07-05 11:07] MED LIST changes: +CEPH500C2 MT; +CLON0.252 MT
[2022-07-05 11:21] VITALS: BP 110/86
[2022-07-05] MEDS ORDERED: ACETAMINOPHEN 325MG TABLET PO ONE (12:15)
[2022-07-05] MEDS ORDERED: BACITRACIN ZINC OINT UDPKT TOP ONE (12:15)
[2022-07-05] MEDS ORDERED: SULFAMETHOXAZOLE/TRIMETHOPRIM 800/160MG TABLET PO ONE (12:45)
[2022-07-05] MEDS ORDERED: CEPHALEXIN 250MG CAPSULE PO ONE (12:45)
[2022-07-05 12:46] LABS: BASOPHILS % 0.3 % (0.0-2.0); HEMATOCRIT. 30.8 % (42.0-52.0); HEMOGLOBIN. 9.8 g/dL (14.0-18.0); LYMPHOCYTES % 19.6 % (20.0-50.0); MEAN CORPUSCULAR HEMOGLOBIN 27.3 pg (28.0-32.0); MEAN CORPUSCULAR VOLUME 85.6 fL (80.0-94.0); MEAN PLATELET VOLUME 7.6 fl (7.4-10.4); MONOCYTES % 8.9 % (2.0-8.0); NEUTROPHILS % 70.2 % (40.0-76.0); PLATELET 276 x1000/uL (130-400); RED CELL DISTRIBUTION WIDTH 15.5 % (11.6-14.6)
[2022-07-05 12:57] LABS: CHLORIDE 105 mEq/L (98-107)
[2022-07-05] MEDS ORDERED: SULF1TAB48 MT (13:57)
[2022-07-05] MEDS ORDERED: CEPH500C2 MT (13:57)
[2022-07-05] MEDS ORDERED: IBUP-2029 MT (13:57)
[2022-07-05] MEDS ORDERED: CLON2TAB21 MT (14:36)
== END 2022-07-05 14:45 | disposition home or self-care (01) ==
LOC: ER 11:07
DX: L02.415 Cutaneous abscess of right lower limb (principal); R60.0 Localized edema
CPT/HCPCS: 10060; 36415; 71045; 80048; 83880; 85025; 93970; 99285; Z7610

== ENCOUNTER 2022-07-29 06:00 | Emergency (ER) | payer MEDICAID ==
[~2022-07-29] VITALS: Ht 177.8 cm; Wt 67.0 kg
[2022-07-29] MEDS ORDERED: NALO4SPR BOTHNSTRLS (08:59)
[2022-07-29 18:00] VITALS: BP 135/68
== END 2022-07-29 18:53 | disposition home or self-care (01) ==
LOC: ER 06:00
DX: T50.7X1A Poisoning by analeptics and opioid receptor antagonists, accidental (unintentional), initial encounter (principal); G40.909 Epilepsy, unspecified, not intractable, without status epilepticus; F14.10 Cocaine abuse, uncomplicated; F15.10 Other stimulant abuse, uncomplicated; F16.10 Hallucinogen abuse, uncomplicated; F11.10 Opioid abuse, uncomplicated; Z88.8 Allergy status to other drugs, medicaments and biological substances; Y92.488 Other paved roadways as the place of occurrence of the external cause
CPT/HCPCS: 99283